=== PATIENT | male | born 1950 | race Caucasian/White ===

== ENCOUNTER 2018-11-14 08:00 | Inpatient (IN) | payer BC ==
[2018-11-19] MEDS ORDERED: HEPARIN NA (PORCINE) 5,000 UNITS/ML 1ML VIAL ONE (07:08)
[2018-11-19] MEDS ORDERED: BENZOIN TINCTURE SWABSTICK TP ONE (07:08)
[2018-11-19] MEDS ORDERED: THROMBIN (BOVINE) 5,000 UNIT VIAL TP ONE ×2 (07:08→09:33)
[2018-11-19] MEDS ORDERED: PROPOFOL 20 ML ONE ×13 (08:01→13:39)
[2018-11-19] MEDS ORDERED: fentaNYL CITRATE 250 MCG/5 ML VIAL ONE ×3 (08:15→21:54)
[2018-11-19] MEDS ORDERED: SUCCINYLCHOLINE CHLORIDE 200 MG/10 ML VIAL ONE (08:15)
[2018-11-19] MEDS ORDERED: ceFAZolin SODIUM 1 GM VIAL ONE (08:16)
[2018-11-19] MEDS ORDERED: ROCURONIUM BROMIDE 50 MG/5 ML VIAL ONE (08:16)
[2018-11-19] MEDS ORDERED: DEXAMETHASONE SOD PHOSPHATE 4 MG/1 ML VIAL ONE (08:16)
[2018-11-19] MEDS ORDERED: ePHEDrine SULFATE 50 MG/1 ML AMPULE ONE ×2 (08:40→12:28)
[2018-11-19] MEDS ORDERED: PHENYLEPHRINE HCL 10 MG/1 ML SINGLE DOSE VIAL ONE ×3 (08:43→11:59)
[2018-11-19] MEDS ORDERED: ceFAZolin SODIUM 1 GM VIAL IVPB ONE (08:48)
[2018-11-19] MEDS ORDERED: TRANEXAMIC ACID 1000 MG/10 ML VIAL ONE ×2 (09:44)
[2018-11-19] MEDS ORDERED: BUPIVACAINE LIPOSOME/PF (EXPAREL) 266 MG/20 ML VIAL ONE (10:06)
[2018-11-19] MEDS ORDERED: BUPIVACAINE HCL/PF 0.25% (2.5MG/ML) 10 ML VIAL ONE (10:06)
[2018-11-19] MEDS ORDERED: BUPIVACAINE LIPOSOME/PF (EXPAREL) 266 MG/20 ML VIAL NR ONE (10:15)
--- NOTE | 2018-11-19 12:47 | OP ---
Operative Note - Note: Operative Date: 11/19/18 Pre-Operative Diagnosis: 1. 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 2. Severe multi-level thoracolumbar stenosis with neurogenic claudication. 3. Multi-level segmental instability thoracolumbar spine. 4. Lumbar spondylolisthesis Operation: 1. T12, L1, L2, L3, L4, L5, S1 laminectomies. 2. T11-L5 facetectomies/osteotomies. 3. Simons-Villarreal osteotomies T12-L1, L1-L2, L3-L4. 4. Posterior instrumentation T11-S1. 5. Posterolateral arthrodesis T11-S1. 6. Bone autograft. 7. Bone allograft. 8. Bone marrow aspiration. 9. Stem cell autograft. 10. Intra-operative neural monitoring. 11. Intra-operative biplanar fluoroscopy. 12. Durotomy repair. 13. Complex wound closure (30cm) Post-Operative Diagnosis: Same as Pre-op Surgeon: Parish Rao [employer] Instructor: Migue Rao Anesthesiologist/TITLE I MATH TUTOR: Misha Ayoub Anesthesia: General Estimated Blood Loss (mls): 2,300 Drains & Tubes with Location: 1 x superficial HemoVac Blood Volume Replaced (mls): 1,575 (875 Cell Saver; 700 (2U) PRBC) Fluid Volume Replaced (mls): 7,000 (Crystalloid) Operative Report Dictated: Yes
--- NOTE | 2018-11-19 12:56 | PN ---
Progress Note (short form) - Note Progress Note: 68M s/p T11-S1 posterior decompression, T11-S1 posterior instrumented spinal fusion POD #0. -Admit to ICU post-op. -Pain control: per anaesthesia team; recommend DESIGN CENTER CONSULTANT. -DVT PPx: - Mechanical only: JOE's, SCD's. -Incentive spirometry q15min. -PT/OT/Rehab, OOB. -WBAT B/L LE. -q4h B/L LE NV checks. -Post-op antibiotics x 3 doses. -NPO until flatus. -f/u AM labs. -f/u drain output. -d/c Gomez catheter when patient ambulating comfortably. -Care per ICU & medical hospitalist team. -Discharge planning: f/u 7-10 days after discharge at [facility] [place] office; call for appointment; . -Will follow. Parish Rao MD (Orthopaedic Surgery).
[2018-11-19] MEDS ORDERED: EPINEPHrine/PF 1 MG/1 ML (1:1,000) AMPULE ONE (13:13)
[2018-11-19] MEDS ORDERED: NOREPINEPHRINE BITARTRATE 4 MG/4 ML ML IV ONE ×3 (13:30→19:47)
[2018-11-19] MEDS ORDERED: SODIUM BICARBONATE 8.4% - 50 ML ONE (13:32)
[2018-11-19] MEDS ORDERED: CALCIUM CHLORIDE 1 GM/10 ML *DISP.SYRIN ONE (13:49)
[2018-11-19] MEDS ORDERED: MIDAZOLAM HCL 5 MG/1 ML Single Dose Vial ONE (14:26)
[2018-11-19] MEDS ORDERED: ONDANSETRON 4 MG/2 ML VIAL IVPUSH PRN (14:29)
[2018-11-19] MEDS ORDERED: MIDAZOLAM HCL 5 MG/1 ML Single Dose Vial IVPUSH ONE (14:30)
[2018-11-19] MEDS ORDERED: VASOPRESSIN 20 UNITS/ML VIAL IV ONE (15:00)
[2018-11-19] MEDS ORDERED: MIDAZOLAM HCL 2 MG/2 ML SINGLE DOSE VIAL IVPUSH PRN ×2 (15:01→17:13)
--- NOTE | 2018-11-19 15:20 | PROC ---
Central Line Insertion Indication: Vasopressor Central Line: Triple Lumen Catheter Anesthesia: 1% Lidocaine Sterile Technique: Yes Ultrasound Guided Assistance: Yes Position: Left Internal Jugular Post Insertion: Yes: Bilateral Breath Sounds, Bilateral Chest Expansion, Chest X-Ray Ordered Sterile Dressing Applied: Yes (Biopatch applied)
--- NOTE | 2018-11-19 15:26 | CONSULT ---
Consult Consult Specialty:: Intensive Care Referred by:: Dr. 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 Pt lost 2300 cc blood during the procedure, was given 2UPRC and 7L of LR, 850 cell-saver in surgery. Pt was hypotensive, requiring Levophed and Dopamine peripherally. - History Source History Provided By: Medical Record Limitations to Obtaining History: Intubated - Alcohol/Substance Use Hx Alcohol Use: Yes (occ) - Smoking History Smoking history: Former smoker Have you smoked in the past 12 months: No If you are a former smoker, when did you quit?: 2007 Home Medications - Allergies Allergies/Adverse Reactions: Allergies Allergy/AdvReac Type Severity Reaction Status Date / Time No Known Allergies Allergy Verified 11/19/18 07:12 - Home Medications Home Medications: Ambulatory Orders Aspirin [ASA -] 81 mg PO DAILY 11/15/18 Clopidogrel Bisulfate [Clopidogrel] 75 mg PO DAILY 11/15/18 Ergocalciferol (Vitamin D2) [Vitamin D2] 2,000 unit PO DAILY 11/15/18 Losartan Potassium 50 mg PO HS 11/15/18 Metoprolol Succinate [Toprol Xl] 25 mg PO DAILY 11/15/18 Simvastatin 20 mg PO DAILY 11/15/18 Sulfamethoxazole/Trimethoprim [Sulfamethoxazole-Tmp Ds Tablet] 1 each PO DAILY 11/15/18 Tamsulosin HCl 0.4 mg PO DAILY 11/15/18 Review of Systems Unable to obtain ROS, reason: Intubated and sedated Physical Exam Vital Signs: Vital Signs Temperature 97.8 F 11/19/18 06:52 Pulse Rate 88 11/19/18 14:38 Respiratory Rate 20 11/19/18 14:38 Blood Pressure 132/89 11/19/18 06:52 O2 Sat by Pulse Oximetry (%) 100 11/19/18 14:38 Constitutional: Yes: Well Nourished, Mild Distress Eyes: Yes: WNL, Conjunctiva Clear, EOM Intact, PERRL HENT: Yes: WNL, Atraumatic, Normocephalic Neck: Yes: WNL, Supple, Trachea Midline Cardiovascular: Yes: WNL, Regular Rate and Rhythm Respiratory: Yes: WNL, Regular, CTA Bilaterally Gastrointestinal: Yes: WNL, Normal Bowel Sounds ...Rectal Exam: Yes: Deferred Edema: No Neurological: Yes: Other (Intubated and sedated, moves all fours) Psychiatric: Yes: Other (Intubated and sedated) Assessment/Plan ASSESSMENT AND PLAN 68 year old male with PMH 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 Pt lost 2300 cc blood during the procedure, was given 2UPRC and 7L of LR, 875 cell saver in surgery. Pt was hypotensive, requiring Levophed and Dopamine. NEURO #Multilevel spine surgery -Cefazolin 2gm Q8H -Zofran 4 mg IV Q6H -Morphine 2 mg Q4H PRN pain -Ativan 2 mg Q4H PRN agitation -Acetaminophen IV 1000 mg Q8H -Hold home ASA CARDIOVASCULAR #Hypotension -Left IJ placed for pressor use 11/19/18 -Levophed -Dopamine -2U PRBC given in OR -7L LR given in OR -875 cell saver given in OR -Pending repeat labs -Hold home losartan -Hold home metoprolol #HX HLD -Atorvastatin 10 mg PO HS RESPIRATORY -Intubated and ventilated 500/12/100%/5 -CXR ordered for ET tube and left IJ placement ID -Home Bactrim 1 each PO daily -Cefazolin post op FEN -LR @125 cc/hour
[2018-11-19] MEDS ORDERED: LORazepam 2 MG/ML SDV VIAL IVPUSH PRN (15:36)
[2018-11-19 15:38] LABS: ARTERIAL BLD GAS O2 SATURATION 99.8 % (95-98); ARTERIAL BLOOD GAS BASE EXCESS -7.5 meq/l (-2-2); ARTERIAL BLOOD GAS PCO2 28.2 mmHg (35-45); ARTERIAL BLOOD GAS PO2 327 mmHg (80-105); ARTERIAL BLOOD GAS pH 7.37 (7.35-7.45)
[2018-11-19] MEDS ORDERED: morphine CARPU-JECT 4 MG/1 ML DISP.SYRIN IVPUSH PRN (15:38)
[2018-11-19 15:40] LABS: HEMATOCRIT 37.8 % (35.4-49); HEMOGLOBIN 12.9 GM/dL (11.7-16.9); MCH 30.4 pg (25.7-33.7); MCHC 34.2 g/dl (32.0-35.9); MEAN CELL VOLUME 88.9 fl (80-96); MEAN PLT VOLUME 8.4 fl (7.5-11.1); PLATELET COUNT 143 K/MM3 (134-434); RBC 4.26 M/mm3 (4.00-5.60); RDW 15.2 % (11.9-15.9); WHITE BLOOD COUNT 14.8 K/mm3 (4.0-10.0)
[2018-11-19] MEDS ORDERED: MORPHINE SULFATE 2 MG/ML VIAL IVPUSH PRN ×2 (15:40→17:29)
[2018-11-19] MEDS ORDERED: MIDAZOLAM HCL 5 MG/ML 2ML VIAL IJ ONE (15:45)
[2018-11-19] MEDS ORDERED: MIDAZOLAM HCL 2 MG/2 ML SINGLE DOSE VIAL IVPUSH ONE (15:49)
[2018-11-19 16:11] LABS: ALBUMIN 2.2 g/dl (3.4-5.0); ALK PHOS 41 U/L (45-117); ANION GAP 8 MMOL/L (8-16); BILIRUBIN,TOTAL 0.4 mg/dL (0.2-1); BLOOD UREA NITROGEN 14 mg/dL (7-18); CALCIUM 7.7 mg/dL (8.5-10.1); CHLORIDE 107 mmol/L (98-107); CO2 22 mmol/L (21-32); CREATININE 0.9 mg/dL (0.55-1.3); GLUCOSE,RANDOM 235 mg/dL (74-106); POTASSIUM 4.7 mmol/L (3.5-5.1); SGOT/AST 28 U/L (15-37); SGPT/ALT 19 U/L (13-61); SODIUM 137 mmol/L (136-145); TOT PROT 4.3 g/dl (6.4-8.2)
[2018-11-19 16:46] LABS: INR 1.1 (0.83-1.09)
[2018-11-19 16:48] LABS: ACTIVATED PTT 26.5 SECONDS (25.2-36.5)
[2018-11-19] MEDS: LACTATED RINGERS SOLUTION 1,000 ML IV SCH (17:15)
[2018-11-19] MEDS: NOREPINEPHRINE BITARTRATE 4,000 MCG in DEXTROSE 5%-WATER - 496 ML IV SCH (17:15)
[2018-11-19] MEDS: ceFAZolin 2 GRAM PREMIX BAG IVPB SCH (17:47)
[2018-11-19] MEDS: ACETAMINOPHEN 1000 MG/100 ML VIAL (NON FORMULARY) IVPB SCH ×2 (17:48→18:03)
[2018-11-19] MEDS ORDERED: MIDAZOLAM 100 MG/100 ML MG IVPB ONE (19:30)
[2018-11-19] MEDS: MIDAZOLAM 100 MG in SODIUM CHLORIDE 100 ML IVPB SCH (19:35)
[2018-11-19 21:04] LABS: BASO % 0.1 % (0-2.0); HEMATOCRIT 37.1 % (35.4-49); HEMOGLOBIN 12.8 GM/dL (11.7-16.9); LYMPH % 4.5 % (8-40); MCHC 34.4 g/dl (32.0-35.9); MEAN CELL VOLUME 87.1 fl (80-96); MEAN PLT VOLUME 8.6 fl (7.5-11.1); MONO % 8.8 % (3.8-10.2); NEUT % 86.6 % (42.8-82.8); PLATELET COUNT 177 K/MM3 (134-434); RBC 4.26 M/mm3 (4.00-5.60); WHITE BLOOD COUNT 16.3 K/mm3 (4.0-10.0)
[2018-11-19 21:57] LABS: PLATELET ESTIMATE ADEQUATE
[2018-11-19] MEDS ORDERED: LOSARTAN POTASSIUM 50 MG TABLET (FP) PO SCH (22:00)
--- NOTE | 2018-11-19 22:00 | OP ---
DATE OF OPERATION: 11/19/2018 SURGEON: Parish Rao MD HYDRAULIC BARKER OPERATOR: Migue Rao MD PREOPERATIVE DIAGNOSES: 1. Severe spinal stenosis from T10-11 to L5-S1, most marked at L3-4 and L4-5. 2. Kyphosis. 3. Segmental instability, L1 to S1. POSTOPERATIVE DIAGNOSES: 1. Severe spinal stenosis from T10-11 to L5-S1, most marked at L3-4 and L4-5. 2. Kyphosis. 3. Segmental instability, L1 to S1. OPERATION PERFORMED: 1. Laminectomy, T12, L1, L2, L3, L4, L5, and S1 with undercutting facetectomy at each level. 2. Incidental durotomy plus repair. 3. Simons-Pyle osteotomies at T11-T12, at L1-L2, and at L3-L4. 4. Pedicle screw instrumentation, T11 to S1. 5. Posterolateral arthrodesis, T11 to ala of the sacrum including all intercalary levels. 6. Autologous bone graft with allograft bone graft expansion and bone marrow aspirate concentrate 120 mL from left posterior ilium. 7. Complex wound closure 40cms BLOOD LOSS: 2300 mL. Cell Saver blood given back 875. Two units of packed cells given intraoperatively and 7 L crystalloid. ANTIBIOTICS GIVEN: Preop Ancef 2 g and then intraoperatively Ancef 1 g. At the end of the procedure, another gram of Kefzol was given. OPERATION DETAILS: Patient correctly identified, placed prone on a Gray table. All bony points appropriately padded. Eyes were notably free of any pressure. Position of the head was 10 degrees anti-Trendelenburg. I the prone position, the lumbar spine was prepped, and a window drape applied. Midline incision was performed from the tip of the spinous process of T11 right down to the tip of the spinous process of S2. The dissection was taken through the skin, subcutaneous tissue to the tip of the spinous processes. Subperiosteal dissection performed, exposing the entire spine from T11 right to the ala of the sacrum both left- and right-hand side. A multi-level laminectomy from T11 right down to S1 performed. This laminectomy was performed using a combination of Leksell rongeurs, Kerrison up-cuts of all different sizes, as well as osteotomes to implode the bone inwards. Severe stenosis encountered. This turned out to be an extremely difficult decompression. At the end of it, there was a tiny, pin-hole where the arachnoid was intact, but the dura was . The diameter of this was no more than a millimeter. One single 4-0 Nurolon suture changed the picture. It sealed this up completely. Valsalva maneuvers brought about no leakage. Once this had been performed and the entire decompression was performed and this necessitated at each level the theca to be exposed, held out of harm's way, and the superior facets resected. A formal Simons-Pyle osteotomy was performed at T11-T12, T12-L1, as well as L1-L2. That is 3 levels performed. This was using Leksell rongeurs and Kerrison up-cuts. This enabled nondenominational of the lumbar lordosis. Once the dura had been completely freed and complete exposure of this dura noted, the pedicles from T11 right down to S1 were identified using anatomical guidelines in combination with lateral fluoroscopic x-ray. Each pedicle was drilled with a 4.5 drill bit. Each pedicle was palpated with a ball-tip feeler, and each screw measured 45 x 6 mm excepting the left S1 screw was a 7.5 x 45 mm screw. Each screw was then tested with intraoperative neuromonitoring, found to be well above 20 mA for each screw. The rods were contoured appropriately to restore lordosis and fixed to the tulips of the screw heads and then fixed appropriately with the appropriate caps and torque device, providing a solid fixation. We planned on interbody cages and fusion at the L4- 5 and L5-S1, but stopped this because of the slow ooze of blood loss and the concern for the patient's general wellbeing. He is an extensive previous myocardial infarction patient. It was elected to be more conservative on this. The entire erector spinae muscles were then retracted gently. The wounds were thoroughly lavaged, and at that point, the entire intertransverse plane was packed with bone marrow. This was a combination of autograft, allograft mixed with CD34 cells harvested from the left posterior ilium. Closure Complex wound closure 40 cm 4 layer closure. Muscle fascia subcutaneous tissue and skin separately. In summary, this gentleman underwent a T12 to S1, multi-level laminectomy for severe spinal stenosis at multiple levels with an associated instrumented stabilization procedure having been performed at this setting. MD MEENAKSHI Adair/[id number] MTDD
[2018-11-19] MEDS: ATORVASTATIN CA 10 MG TABLET (FP) PO SCH (22:13)
[2018-11-19] MEDS: FENTANYL INJECTION 500 MCG in DEXTROSE 5%-WATER - 90 ML IVPB SCH (22:13)
[2018-11-20] MEDS: ceFAZolin 2 GRAM PREMIX BAG IVPB SCH ×2 (00:24→07:54)
[2018-11-20] MEDS: ACETAMINOPHEN 1000 MG/100 ML VIAL (NON FORMULARY) IVPB SCH (03:07)
[2018-11-20 07:00] LABS: BASO % 0.1 % (0-2.0); HEMATOCRIT 30.1 % (35.4-49); HEMOGLOBIN 10.5 GM/dL (11.7-16.9); LYMPH % 10.1 % (8-40); MCH 29.8 pg (25.7-33.7); MCHC 34.8 g/dl (32.0-35.9); MEAN CELL VOLUME 85.5 fl (80-96); MEAN PLT VOLUME 8.4 fl (7.5-11.1); MONO % 13.5 % (3.8-10.2); NEUT % 76.3 % (42.8-82.8); PLATELET COUNT 165 K/MM3 (134-434); RBC 3.52 M/mm3 (4.00-5.60); RDW 15.1 % (11.9-15.9); WHITE BLOOD COUNT 16.7 K/mm3 (4.0-10.0)
[2018-11-20 07:18] LABS: ALBUMIN 2.6 g/dl (3.4-5.0); ALK PHOS 40 U/L (45-117); ANION GAP 8 MMOL/L (8-16); BILIRUBIN,TOTAL 0.2 mg/dL (0.2-1); BLOOD UREA NITROGEN 16 mg/dL (7-18); CALCIUM 7.2 mg/dL (8.5-10.1); CHLORIDE 104 mmol/L (98-107); CO2 24 mmol/L (21-32); CREATININE 1.1 mg/dL (0.55-1.3); GLUCOSE,RANDOM 175 mg/dL (74-106); MAGNESIUM 1.4 mg/dL (1.8-2.4); PHOSPHOROUS 3.5 mg/dL (2.5-4.9); POTASSIUM 4.7 mmol/L (3.5-5.1); SGOT/AST 51 U/L (15-37); SGPT/ALT 25 U/L (13-61); SODIUM 135 mmol/L (136-145); TOT PROT 4.9 g/dl (6.4-8.2)
--- NOTE | 2018-11-20 07:33 | PN ---
Physical Exam: SUBJECTIVE: Patient seen and examined, sedated and intubated. Unable to provide history. OBJECTIVE: Vital Signs Period Temp Pulse Resp BP Sys/Conde Pulse Ox Last 24 Hr 97.6 F-98.8 F 46-130 12-24 70-145/40-100 99-100 GENERAL: The patient is sedated in intubated, resting comfortably. HEAD: Normal with no signs of trauma. EYES: PERRL, sclera anicteric, conjunctiva clear. No ptosis. ENT: Ears normal, nares patent, oropharynx clear without exudates, moist mucous membranes. NECK: Trachea midline, full range of motion, supple. LUNGS: Breath sounds equal, clear to auscultation bilaterally, no wheezes, no crackles, no accessory muscle use. HEART: Regular rate and rhythm, S1, S2 without murmur, rub or gallop. ABDOMEN: Soft, nontender, nondistended, normoactive bowel sounds, no guarding, no rebound, no hepatosplenomegaly, no masses. EXTREMITIES: 2+ pulses, warm, well-perfused, no edema. NEUROLOGICAL: sedated and intubated. PSYCH: sedated and intubated. SKIN: Warm, dry, normal turgor, no rashes or lesions noted. Laboratory Results - last 24 hr 11/19/18 11/19/18 11/19/18 06:15 11:50 11:50 WBC RBC Hgb Hct MCV MCH MCHC RDW Plt Count MPV Absolute Neuts (auto) Neutrophils % Neutrophils % (Manual) Band Neutrophils % Lymphocytes % Lymphocytes % (Manual) Monocytes % Monocytes % (Manual) Eosinophils % Eosinophils % (Manual) Basophils % Basophils % (Manual) Nucleated RBC % Platelet Estimate PT with INR INR PTT (Actin FS) Puncture Site ABG pH ABG pCO2 at Pt Temp ABG pO2 at Pt Temp ABG HCO3 ABG O2 Sat (Measured) ABG O2 Content ABG Base Excess Jair Test Oxygen Flow Rate Vent Mode Vent Rate PEEP Sodium Potassium Chloride Carbon Dioxide Anion Gap BUN Creatinine Creat Clearance w eGFR Random Glucose Lactic Acid Calcium Phosphorus Magnesium Total Bilirubin AST ALT Alkaline Phosphatase Creatine Kinase Creatine Kinase Index CK-MB (CK-2) Troponin I Total Protein Albumin Blood Type A POSITIVE A POSITIVE Antibody Screen Negative Crossmatch See Detail Crossmatch IS Only See Detail 11/19/18 11/19/18 11/19/18 15:00 15:20 15:20 WBC RBC Hgb Hct MCV MCH MCHC RDW Plt Count MPV Absolute Neuts (auto) Neutrophils % Neutrophils % (Manual) Band Neutrophils % Lymphocytes % Lymphocytes % (Manual) Monocytes % Monocytes % (Manual) Eosinophils % Eosinophils % (Manual) Basophils % Basophils % (Manual) Nucleated RBC % Platelet Estimate PT with INR 13.00 INR 1.10 H PTT (Actin FS) 26.5 Puncture Site ABG pH ABG pCO2 at Pt Temp ABG pO2 at Pt Temp ABG HCO3 ABG O2 Sat (Measured) ABG O2 Content ABG Base Excess Jair Test Oxygen Flow Rate Vent Mode Vent Rate PEEP Sodium 137 Potassium 4.7 Chloride 107 Carbon Dioxide 22 Anion Gap 8 BUN 14 Creatinine 0.9 Creat Clearance w eGFR 83.67 Random Glucose 235 H Lactic Acid Calcium 7.7 L Phosphorus Magnesium Total Bilirubin 0.4 AST 28 ALT 19 Alkaline Phosphatase 41 L Creatine Kinase 638 H Creatine Kinase Index 3.0 CK-MB (CK-2) 19.2 H Troponin I 0.12 H Total Protein 4.3 L Albumin 2.2 L Blood Type Antibody Screen Crossmatch Crossmatch IS Only 11/19/18 11/19/18 11/19/18 15:20 15:20 15:30 WBC 14.8 H RBC 4.26 Hgb 12.9 Hct 37.8 MCV 88.9 MCH 30.4 MCHC 34.2 RDW 15.2 Plt Count 143 MPV 8.4 Absolute Neuts (auto) Neutrophils % Neutrophils % (Manual) Band Neutrophils % Lymphocytes % Lymphocytes % (Manual) Monocytes % Monocytes % (Manual) Eosinophils % Eosinophils % (Manual) Basophils % Basophils % (Manual) Nucleated RBC % Platelet Estimate PT with INR INR PTT (Actin FS) Puncture Site No Result Required. ABG pH 7.37 ABG pCO2 at Pt Temp 28.2 L ABG pO2 at Pt Temp 327 H ABG HCO3 16.1 L ABG O2 Sat (Measured) 99.8 H ABG O2 Content 17.0 ABG Base Excess -7.5 L Jair Test No Result Required. Oxygen Flow Rate 100 Vent Mode Ac Vent Rate 12 PEEP 5.0 Sodium Potassium Chloride Carbon Dioxide Anion Gap BUN Creatinine Creat Clearance w eGFR Random Glucose Lactic Acid 4.7 H* Calcium Phosphorus Magnesium Total Bilirubin AST ALT Alkaline Phosphatase Creatine Kinase Creatine Kinase Index CK-MB (CK-2) Troponin I Total Protein Albumin Blood Type Antibody Screen Crossmatch Crossmatch IS Only 11/19/18 11/19/18 11/20/18 20:35 20:45 05:30 WBC 16.3 H RBC 4.26 Hgb 12.8 Hct 37.1 MCV 87.1 MCH 30.0 MCHC 34.4 RDW 15.0 Plt Count 177 D MPV 8.6 Absolute Neuts (auto) 14.1 H Neutrophils % 86.6 H Neutrophils % (Manual) 76.0 Band Neutrophils % 11.0 Lymphocytes % 4.5 L Lymphocytes % (Manual) 4.0 L Monocytes % 8.8 Monocytes % (Manual) 7 Eosinophils % 0.0 Eosinophils % (Manual) 2.0 Basophils % 0.1 Basophils % (Manual) 0.0 Nucleated RBC % 0 Platelet Estimate Adequate PT with INR INR PTT (Actin FS) Puncture Site ABG pH ABG pCO2 at Pt Temp ABG pO2 at Pt Temp ABG HCO3 ABG O2 Sat (Measured) ABG O2 Content ABG Base Excess Jair Test Oxygen Flow Rate Vent Mode Vent Rate PEEP Sodium 135 L Potassium 4.7 Chloride 104 Carbon Dioxide 24 Anion Gap 8 BUN 16 Creatinine 1.1 Creat Clearance w eGFR 66.37 Random Glucose 175 H Lactic Acid 3.7 H* Calcium 7.2 L Phosphorus 3.5 Magnesium 1.4 L Total Bilirubin 0.2 AST 51 H ALT 25 Alkaline Phosphatase 40 L Creatine Kinase Creatine Kinase Index CK-MB (CK-2) Troponin I Total Protein 4.9 L Albumin 2.6 L Blood Type Antibody Screen Crossmatch Crossmatch IS Only Active Medications Generic Name Dose Route Start Last Admin Trade Name Freq PRN Reason Stop Dose Admin Atorvastatin Calcium 10 mg 11/19/18 22:00 11/19/18 22:13 Lipitor - PO Not Given HS HARRY Cefazolin Sodium/Dextrose 2 gm 11/19/18 16:00 11/20/18 00:24 Ancef 2 Gm Premixed Ivpb - IVPB 11/20/18 08:01 2 gm Q8H HARRY Administration Fentanyl 50 mcg 11/19/18 17:29 11/19/18 17:42 Sublimaze Injection - IVPUSH 11/20/18 17:29 50 mcg Q6H PRN Administration PAIN LEVEL 7 - 10 Lactated Ringer's 1,000 mls @ 125 mls/hr 11/19/18 14:30 11/20/18 00:00 Lactated Ringers Solution IV 125 mls/hr ASDIR HARRY Administration Norepinephrine Bitartrate 4, 500 mls @ 37.5 mls/hr 11/19/18 18:45 11/20/18 06 :00 000 mcg/ Dextrose IV 7 mcg/min TITR HARRY 52.5 mls/hr Titration Protocol 5 MCG/MIN Midazolam HCl 100 mg/ Sodium 100 mls @ 1 mls/hr 11/19/18 19:00 11/19/18 19:35 Chloride IVPB 1 mg/hr TITR HARRY 1 mls/hr Administration Protocol 1 MG/HR Fentanyl 500 mcg/ Dextrose 100 mls @ 10 mls/hr 11/19/18 21:45 11/19/18 22:13 IVPB 50 mcg/hr TITR HARRY 10 mls/hr Administration Protocol 50 MCG/HR Midazolam HCl 2 mg 11/19/18 17:13 Versed - IVPUSH Q4H PRN AGITATION Morphine Sulfate 4 mg 11/19/18 17:30 Morphine Sulfate IVPUSH Q4H PRN PAIN LEVEL 6-10 Ondansetron HCl 4 mg 11/19/18 14:29 Zofran Injection IVPUSH Q6H PRN NAUSEA AND/OR VOMITING Tamsulosin HCl 0.4 mg 11/20/18 08:30 Flomax - PO DAILY@0830 HARRY Trimethoprim/Sulfamethoxazole 1 each 11/20/18 10:00 Bactrim Ds - PO DAILY [facility] ASSESSMENT/PLAN: ASSESSMENT AND PLAN 68 year old male with PMH 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 Pt lost 2300 cc blood during the procedure, was given 2UPRC and 7L of LR, 875 cell saver in surgery. Pt was hypotensive, requiring pressors. NEURO #Multilevel spine surgery -Cefazolin 2gm Q8H -Zofran 4 mg IV Q6H -Morphine 2 mg Q4H PRN pain -Ativan 2 mg Q4H PRN agitation -Acetaminophen IV 1000 mg Q8H -Fentanyl drip DC -Versed drip DC -Hold home ASA CARDIOVASCULAR #Hypotension -Left IJ placed for pressor use 11/19/18 -Levophed, titrate down -2U PRBC given in OR -7L LR given in OR -875 cell saver given in OR -Repeat H/H stable -Hold home losartan -Hold home metoprolol #HX HLD -Atorvastatin 10 mg PO HS RESPIRATORY -Extubated today after sedation was DC and CPAP was tolerated for an hour -Venti mask 50 ID -Home Bactrim 1 each PO daily -Cefazolin post op -Lactic acidosis: 4.7>>3.7>>3.0 --Trend --500 cc bolus normal saline now --Increased fluids to 150 cc/hour LR FEN -LR @150 cc/hour -500 cc bolus now -Monitor electrolytes -Replete magnesium -NPO DISPO ICU Visit type - Emergency Visit Emergency Visit: Yes ED Registration Date: 11/19/18 Care time: The patient presented to the Emergency Department on the above date and was hospitalized for further evaluation of their emergent condition. - New Patient This patient is new to me today: No - Critical Care Critical Care patient: Yes Total Critical Care Time (in minutes): 35 Critical Care Statement: The care of this patient involved high complexity decision making to prevent further life threatening deterioration of the patient 's condition and/or to evaluate & treat vital organ system(s) failure or risk of failure. - Discharge Referral Referred to [facility] Med [facility] Yes
[2018-11-20 07:37] LABS: INR 1.07 (0.83-1.09); PROTHROMBIN TIME (PATIENT) 12.6 SEC (9.7-13.0)
[2018-11-20 07:40] LABS: ACTIVATED PTT 26.3 SECONDS (25.2-36.5)
[2018-11-20] MEDS ORDERED: SODIUM CHLORIDE 500 ML IV STA (08:41)
[2018-11-20] MEDS: LACTATED RINGERS SOLUTION 1,000 ML IV SCH ×3 (09:00→17:25)
--- NOTE | 2018-11-20 09:12 | PN ---
Progress Note, Physician History of Present Illness: Patient seen and examined at bedside. No overnight events. S/P Spine surgery with durotomy, complicated by post-op hypotension requiring pressors for BP support. Now only requiring minimal norepinephine and currently undergoing SBT on CPAP. Plan is for extubation today. - Current Medication List Current Medications: Active Medications Atorvastatin Calcium (Lipitor -) 10 mg PO HS HARRY Last Admin: 11/19/18 22:13 Dose: Not Given Fentanyl (Sublimaze Injection -) 50 mcg IVPUSH Q6H PRN PRN Reason: PAIN LEVEL 7 - 10 Stop: 11/20/18 17:29 Last Admin: 11/19/18 17:42 Dose: 50 mcg Norepinephrine Bitartrate 4, (000 mcg/ Dextrose) 500 mls @ 37.5 mls/hr IV TITR HARRY; Protocol Last Titration: 11/20/18 08:31 Dose: 4 mcg/min, 30 mls/hr Midazolam HCl 100 mg/ Sodium (Chloride) 100 mls @ 1 mls/hr IVPB TITR HARRY; Protocol Last Titration: 11/20/18 07:30 Dose: 0 mg/hr, 0 mls/hr Fentanyl 500 mcg/ Dextrose 100 mls @ 10 mls/hr IVPB TITR HARRY; Protocol Last Titration: 11/20/18 07:48 Dose: 0 mcg/hr, 0 mls/hr Lactated Ringer's (Lactated Ringers Solution) 1,000 mls @ 150 mls/hr IV ASDIR HARRY Sodium Chloride (Normal Saline -) 500 mls @ 500 mls/hr IV ASDIR STA Stop: 11/20/18 09:40 Magnesium Sulfate (Magnesium Sulfate) 2 gm IVPB ONCE ONE Stop: 11/20/18 08:44 Midazolam HCl (Versed -) 2 mg IVPUSH Q4H PRN PRN Reason: AGITATION Morphine Sulfate (Morphine Sulfate) 4 mg IVPUSH Q4H PRN PRN Reason: PAIN LEVEL 6-10 Ondansetron HCl (Zofran Injection) 4 mg IVPUSH Q6H PRN PRN Reason: NAUSEA AND/OR VOMITING Tamsulosin HCl (Flomax -) 0.4 mg PO DAILY@0830 [facility] Trimethoprim/Sulfamethoxazole (Bactrim Ds -) 1 each PO DAILY [facility] - Objective Vital Signs: Vital Signs Temperature 98.8 F 11/20/18 06:00 Pulse Rate 86 11/20/18 08:31 Respiratory Rate 20 11/20/18 08:00 Blood Pressure 102/70 11/20/18 08:31 O2 Sat by Pulse Oximetry (%) 98 11/20/18 08:03 Constitutional: Yes: No Distress, Calm, Other Eyes: Yes: Conjunctiva Clear HENT: Yes: Atraumatic, Normocephalic Neck: Yes: Supple, Trachea Midline Cardiovascular: Yes: Regular Rate and Rhythm, S1, S2. No: JVD, Gallop, Murmur Respiratory: Yes: Regular, CTA Bilaterally, Intubated, Mechanically Ventilated Gastrointestinal: Yes: Abdomen, Obese, Distention, Hypoactive Bowel Sounds. No : Tenderness Genitourinary: Yes: Gomez Present Edema: No Peripheral Pulses: Left Doralis Pedis: 2+, Right Dorsalis Pedis: 2+ Wound/Incision: Yes: Clean/Dry Neurological: Yes: Other (sedated, with good gag and pupillary reflexes.) Labs: CBC, BMP 11/20/18 05:30 11/20/18 05:30 INR, PTT INR 1.07 (0.83-1.09) 11/20/18 05:30 - ....Imaging Chest X-ray: Report Reviewed (RAD/CHEST X-RAY PORTABLE* Chest: Intubated A single AP view of the chest has been submitted. Since 11/19/2018 at 1707 hours again is evidence of the previous spinal fusion hardware, endotracheal tube with tip well above addie left jugular line with tip in left innominate. There is persistent atelectasis and pleural reaction at the left base with prominent mediastinum and poorly healed fracture deformity of the right humerus. The right lung and left upper lobe are clear. Impression: No significant change since 11/19/2018 exam. Reported By: Bladimir Funes MD 11/20/18 0733), Image Reviewed Problem List - Problems (1) S/P spinal surgery Assessment/Plan: S/P T12, L1, L2, L3, L4, L5, S1 laminectomies, T11-L5 facetectomies/osteotomies , Simons-Villarreal osteotomies T12-L1, L1-L2, L3-L4, Posterior instrumentation T11 -S1, Posterolateral arthrodesis T11-S1, Bone autograft, Bone allograft, Bone marrow aspiration,Stem cell autograft, Intra-operative neural monitoring, Intra -operative biplanar fluoroscopy, Durotomy repair, Complex wound closure (30cm). * Complicated by post op hypotension requiring pressors. * Morphine 2mg Q4H PRN pain. * Versed 2mg Q4h PRN aggitations . * Tylenol IV Q8H * Hold ASA. Code(s): Z98.890 - OTHER SPECIFIED POSTPROCEDURAL STATES (2) Hypotension after procedure Assessment/Plan: * Left IJ placed for pressor use 11/19/18 * Levophed @ 2mcg * 2U PRBC given in OR * 7L LR given in OR * 875 cell saver given in OR * Hold home losartan * Hold home metoprolol (3) Intubation of airway performed without difficulty Assessment/Plan: * Currently spontaneous breathing trial on CPAP * Off sedation. * plan is for extubation today. * Supplement O2 PRN * Maintain SpO2 >90% (4) DVT prophylaxis Assessment/Plan: SCD's bilaterally * Continue ASA. Assessment/Plan DISPO: Continues to require ICU level of care; FULL CODE>
--- NOTE | 2018-11-20 09:21 | PN ---
Progress Note (short form) - Note Progress Note: Pt POD1 s/p [id number] laminectomy/fusion. PT was hypotensive on admission to ICU yesterday, but is doing much better today after volume repletion. Levophed has been decreased, and sedation has been stopped in plan for extubation today.
--- NOTE | 2018-11-20 09:21 | EKG ---
Test Reason : Blood Pressure : / mmHG Vent. Rate : 104 BPM Atrial Rate : 104 BPM P-R Int : 144 ms QRS Dur : 092 ms QT Int : 328 ms P-R-T Axes : 050 -14 -29 degrees QTc Int : 431 ms SINUS TACHYCARDIA INFERIOR INFARCT , AGE UNDETERMINED ABNORMAL ECG NO PREVIOUS ECGS AVAILABLE Confirmed by PATIENCE HUNTER, ALEJANDRA ([id number]) on 11/20/2018 9:21:41 AM Referred By: Parish Rao Confirmed By:ALEJANDRA MORIN MD
[2018-11-20] MEDS ORDERED: MAGNESIUM SULF 50% (8.12 MEQ/2 ML-1 GM VIAL) IVPB ONE (09:30)
[2018-11-20] MEDS ORDERED: metoPROLOL SUCCINATE 25 MG TAB.SR.24H (FP) PO SCH (10:00)
[2018-11-20] MEDS: SULFAMETHOXAZOLE/TRIMETHOPRIM 800MG/160MG D.S. TABLET PO SCH (11:43)
[2018-11-20] MEDS: morphine SULFATE 4 MG/ML VIAL IVPUSH PRN ×2 (11:49→17:22)
[2018-11-20] MEDS: TAMSULOSIN HCL 0.4 MG CAP PO SCH (11:52)
--- NOTE | 2018-11-20 12:47 | CON.CARD ---
Consult Consult Specialty:: Cardiology Referred by:: Parish Rao Reason for Consultation:: Post op cardiac evaluation - History of Present Illness Chief Complaint: Post op History of Present Illness: Patient is a 68 year old male with history of lumbar disc disease s/p lumbar laminectomies, facetectomies/osteotomies and bone grafts who is post op for cardiac evaluation. He was sent to ICU post op on pressors due to persistent hypotension. Currently Dopamine has been stopped and continues to wean on Levophed. He is awake and appears tolerating therapy. He denies chest pain, SOB or palpitations. He denies paroxysmal nocturnal dyspnea or orthopnea. He denies fever or chills. He denies nausea, vomiting and denies headache or lightheadedness. - History Source History Provided By: Patient, Family Member, Medical Record Limitations to Obtaining History: Clinical Condition - Past Medical History Cardio/Vascular: Yes: HTN, Hyperlipdemia - Alcohol/Substance Use Hx Alcohol Use: Yes (occ) - Smoking History Smoking history: Former smoker Have you smoked in the past 12 months: No If you are a former smoker, when did you quit?: 2007 Home Medications - Allergies Allergies/Adverse Reactions: Allergies Allergy/AdvReac Type Severity Reaction Status Date / Time No Known Allergies Allergy Verified 11/19/18 07:12 - Home Medications Home Medications: Ambulatory Orders Aspirin [ASA -] 81 mg PO DAILY 11/15/18 Clopidogrel Bisulfate [Clopidogrel] 75 mg PO DAILY 11/15/18 Ergocalciferol (Vitamin D2) [Vitamin D2] 2,000 unit PO DAILY 11/15/18 Losartan Potassium 50 mg PO HS 11/15/18 Metoprolol Succinate [Toprol Xl] 25 mg PO DAILY 11/15/18 Simvastatin 20 mg PO DAILY 11/15/18 Sulfamethoxazole/Trimethoprim [Sulfamethoxazole-Tmp Ds Tablet] 1 each PO DAILY 11/15/18 Tamsulosin HCl 0.4 mg PO DAILY 11/15/18 Review of Systems - Review of Systems Constitutional: denies: Chills, Fever Cardiovascular: denies: Chest Pain, Palpitations, Shortness of Breath Respiratory: denies: Cough, Hemoptysis, Orthopnea, PND, SOB, SOB on Exertion Gastrointestinal: denies: Abdominal Pain, Constipation, Diarrhea, Melena, Nausea , Rectal Bleeding, Vomiting Genitourinary: denies: Dysuria, Hematuria Musculoskeletal: reports: Back Pain Neurological: denies: Dizziness, Headache, Seizure, Syncope Vital Signs: Vital Signs Temperature 97.8 F 11/20/18 11:00 Pulse Rate 100 H 11/20/18 12:03 Respiratory Rate 24 H 11/20/18 12:03 Blood Pressure 106/77 11/20/18 12:03 O2 Sat by Pulse Oximetry (%) 100 11/20/18 12:02 Eyes: Yes: PERRL HENT: Yes: Atraumatic Neck: Yes: Supple Respiratory: Yes: CTA Bilaterally Gastrointestinal: Yes: Normal Bowel Sounds, Soft. No: Tenderness Cardiovascular: Yes: Regular Rate and Rhythm JVD: No Carotid Bruit: No PMI: Non-Displaced Heart Sounds: Yes: S1, S2. No: Gallop Murmur: No: Systolic Murmur, Diastolic Murmur Edema: No - Other Data Labs, Other Data: CBC, BMP 11/20/18 05:30 11/20/18 05:30 INR, PTT INR 1.07 (0.83-1.09) 11/20/18 05:30 Troponin, BNP 11/19/18 11/20/18 15:20 05:30 Troponin I 0.12 H 0.41 H Troponin, BNP 11/19/18 11/20/18 15:20 05:30 Troponin I 0.12 H 0.41 H Imaging - Results Chest X-ray: Report Reviewed EKG: Report Reviewed (Sinus tachycardia, inferior infarct) Problem List - Problems (1) HTN (hypertension) Code(s): I10 - ESSENTIAL (PRIMARY) HYPERTENSION Qualifiers: Hypertension type: essential hypertension Qualified Code(s): I10 - Essential (primary) hypertension (2) Hyperlipidemia Code(s): E78.5 - HYPERLIPIDEMIA, UNSPECIFIED Qualifiers: Hyperlipidemia type: pure hypercholesterolemia Qualified Code(s): E78.00 - Pure hypercholesterolemia, unspecified; E78.0 - Pure hypercholesterolemia (3) Hypotension after procedure Code(s): I95.81 - POSTPROCEDURAL HYPOTENSION (4) S/P spinal surgery Code(s): Z98.890 - OTHER SPECIFIED POSTPROCEDURAL STATES Assessment/Plan 1. Lumbar Stenosis with radiculopathy and claudication s/p T12-S1 Laminectomies/ Posterior Instrumentation/Arthrodesis/Durotomy Repair 2. Acute Blood Loss Anemia 3. Hypovolemic Shock and lactic acidosis 4. Demand ischemia 5. Thrombocytopenia 6. History of HTN 7 Hypercholesterolemia PLAN: 1. Monitor Hgb/Hct and transfuse PRBC as needed 2. Wean pressors to maintain MAP >65 3. Pain control and post op management 4. DVT prophylaxis As per critical care team Kaleb Stanley MD
[2018-11-20] MEDS ORDERED: NOREPINEPHRINE BITARTRATE 4 MG/4 ML ML IV ONE (13:41)
[2018-11-20] MEDS: NOREPINEPHRINE BITARTRATE 4,000 MCG in DEXTROSE 5%-WATER - 496 ML IV SCH ×2 (13:47→21:22)
[2018-11-20 14:01] LABS: BASO % 0.1 % (0-2.0); HEMATOCRIT 27.3 % (35.4-49); HEMOGLOBIN 9.4 GM/dL (11.7-16.9); MCH 29.8 pg (25.7-33.7); MCHC 34.4 g/dl (32.0-35.9); MEAN CELL VOLUME 86.8 fl (80-96); MEAN PLT VOLUME 8.4 fl (7.5-11.1); MONO % 11.6 % (3.8-10.2); NEUT % 78.3 % (42.8-82.8); PLATELET COUNT 155 K/MM3 (134-434); RBC 3.15 M/mm3 (4.00-5.60); WHITE BLOOD COUNT 14.5 K/mm3 (4.0-10.0)
--- NOTE | 2018-11-20 14:10 | PN ---
Teaching Attending Note Name of Resident: Any Muller ATTENDING PHYSICIAN STATEMENT I saw and evaluated the patient. I reviewed the resident's note and discussed the case with the resident. I agree with the resident's findings and plan as documented. SUBJECTIVE: SUBJECTIVE: Patient seen and examined, remains intubated. Awake and able to follow commands. Remains on 4 mcg NE for hemodynamic support. OBJECTIVE: Intake & Output 11/17/18 11/18/18 11/19/18 11/20/18 23:59 23:59 23:59 23:59 Intake Total 86878 3044 Output Total 2425 800 Balance 7670 2244 Weight 193 lb Last Vital Signs Temp Pulse Resp BP Pulse Ox 98.4 F 96 H 23 H 93/71 100 11/20/18 14:00 11/20/18 14:00 11/20/18 14:00 11/20/18 14:00 11/20/18 12:02 Active Medications Atorvastatin Calcium (Lipitor -) 10 mg PO HS HARRY Last Admin: 11/19/18 22:13 Dose: Not Given Fentanyl (Sublimaze Injection -) 50 mcg IVPUSH Q6H PRN PRN Reason: PAIN LEVEL 7 - 10 Stop: 11/20/18 17:29 Last Admin: 11/19/18 17:42 Dose: 50 mcg Norepinephrine Bitartrate 4, (000 mcg/ Dextrose) 500 mls @ 37.5 mls/hr IV TITR HARRY; Protocol Last Admin: 11/20/18 13:47 Dose: 4 mcg/min, 30 mls/hr Midazolam HCl 100 mg/ Sodium (Chloride) 100 mls @ 1 mls/hr IVPB TITR HARRY; Protocol Last Titration: 11/20/18 07:30 Dose: 0 mg/hr, 0 mls/hr Fentanyl 500 mcg/ Dextrose 100 mls @ 10 mls/hr IVPB TITR HARRY; Protocol Last Titration: 11/20/18 07:48 Dose: 0 mcg/hr, 0 mls/hr Lactated Ringer's (Lactated Ringers Solution) 1,000 mls @ 150 mls/hr IV ASDIR HARRY Last Admin: 11/20/18 09:00 Dose: 150 mls/hr Midazolam HCl (Versed -) 2 mg IVPUSH Q4H PRN PRN Reason: AGITATION Morphine Sulfate (Morphine Sulfate) 4 mg IVPUSH Q4H PRN PRN Reason: PAIN LEVEL 6-10 Last Admin: 11/20/18 11:49 Dose: 4 mg Ondansetron HCl (Zofran Injection) 4 mg IVPUSH Q6H PRN PRN Reason: NAUSEA AND/OR VOMITING Tamsulosin HCl (Flomax -) 0.4 mg PO DAILY@0830 [facility] Last Admin: 11/20/18 11:52 Dose: Not Given Trimethoprim/Sulfamethoxazole (Bactrim Ds -) 1 each PO DAILY [facility] Last Admin: 11/20/18 11:43 Dose: Not Given GENERAL: intubated, awake and able to follow commands HEAD: Normal with no signs of trauma. EYES: PERRL, sclera anicteric, conjunctiva clear. No ptosis. ENT: Ears normal, nares patent, oropharynx clear without exudates, moist mucous membranes. NECK: Trachea midline, full range of motion, supple. LUNGS: Breath sounds equal, clear to auscultation bilaterally, no wheezes, no crackles, no accessory muscle use. HEART: Regular rate and rhythm, S1, S2 without murmur, rub or gallop. ABDOMEN: Soft, nontender, nondistended, normoactive bowel sounds, no guarding, no rebound, no hepatosplenomegaly, no masses. EXTREMITIES: 2+ pulses, warm, well-perfused, no edema. NEUROLOGICAL: non-focal. PSYCH: sedated and intubated. SKIN: Warm, dry, normal turgor, no rashes or lesions noted. Laboratory Results - last 24 hr 11/19/18 11/19/18 11/19/18 06:15 11:50 11:50 WBC RBC Hgb Hct MCV MCH MCHC RDW Plt Count MPV Absolute Neuts (auto) Neutrophils % Neutrophils % (Manual) Band Neutrophils % Lymphocytes % Lymphocytes % (Manual) Monocytes % Monocytes % (Manual) Eosinophils % Eosinophils % (Manual) Basophils % Basophils % (Manual) Nucleated RBC % Platelet Estimate PT with INR INR PTT (Actin FS) Puncture Site ABG pH ABG pCO2 at Pt Temp ABG pO2 at Pt Temp ABG HCO3 ABG O2 Sat (Measured) ABG O2 Content ABG Base Excess Jair Test Oxygen Flow Rate Vent Mode Vent Rate PEEP Sodium Potassium Chloride Carbon Dioxide Anion Gap BUN Creatinine Creat Clearance w eGFR Random Glucose Lactic Acid Calcium Phosphorus Magnesium Total Bilirubin AST ALT Alkaline Phosphatase Creatine Kinase Creatine Kinase Index CK-MB (CK-2) Troponin I Total Protein Albumin Blood Type A POSITIVE A POSITIVE Antibody Screen Negative Crossmatch See Detail Crossmatch IS Only See Detail 11/19/18 11/19/18 11/19/18 15:00 15:20 15:20 WBC RBC Hgb Hct MCV MCH MCHC RDW Plt Count MPV Absolute Neuts (auto) Neutrophils % Neutrophils % (Manual) Band Neutrophils % Lymphocytes % Lymphocytes % (Manual) Monocytes % Monocytes % (Manual) Eosinophils % Eosinophils % (Manual) Basophils % Basophils % (Manual) Nucleated RBC % Platelet Estimate PT with INR 13.00 INR 1.10 H PTT (Actin FS) 26.5 Puncture Site ABG pH ABG pCO2 at Pt Temp ABG pO2 at Pt Temp ABG HCO3 ABG O2 Sat (Measured) ABG O2 Content ABG Base Excess Jair Test Oxygen Flow Rate Vent Mode Vent Rate PEEP Sodium 137 Potassium 4.7 Chloride 107 Carbon Dioxide 22 Anion Gap 8 BUN 14 Creatinine 0.9 Creat Clearance w eGFR 83.67 Random Glucose 235 H Lactic Acid Calcium 7.7 L Phosphorus Magnesium Total Bilirubin 0.4 AST 28 ALT 19 Alkaline Phosphatase 41 L Creatine Kinase 638 H Creatine Kinase Index 3.0 CK-MB (CK-2) 19.2 H Troponin I 0.12 H Total Protein 4.3 L Albumin 2.2 L Blood Type Antibody Screen Crossmatch Crossmatch IS Only 11/19/18 11/19/18 11/19/18 15:20 15:20 15:30 WBC 14.8 H RBC 4.26 Hgb 12.9 Hct 37.8 MCV 88.9 MCH 30.4 MCHC 34.2 RDW 15.2 Plt Count 143 MPV 8.4 Absolute Neuts (auto) Neutrophils % Neutrophils % (Manual) Band Neutrophils % Lymphocytes % Lymphocytes % (Manual) Monocytes % Monocytes % (Manual) Eosinophils % Eosinophils % (Manual) Basophils % Basophils % (Manual) Nucleated RBC % Platelet Estimate PT with INR INR PTT (Actin FS) Puncture Site No Result Required. ABG pH 7.37 ABG pCO2 at Pt Temp 28.2 L ABG pO2 at Pt Temp 327 H ABG HCO3 16.1 L ABG O2 Sat (Measured) 99.8 H ABG O2 Content 17.0 ABG Base Excess -7.5 L Jair Test No Result Required. Oxygen Flow Rate 100 Vent Mode Ac Vent Rate 12 PEEP 5.0 Sodium Potassium Chloride Carbon Dioxide Anion Gap BUN Creatinine Creat Clearance w eGFR Random Glucose Lactic Acid 4.7 H* Calcium Phosphorus Magnesium Total Bilirubin AST ALT Alkaline Phosphatase Creatine Kinase Creatine Kinase Index CK-MB (CK-2) Troponin I Total Protein Albumin Blood Type Antibody Screen Crossmatch Crossmatch IS Only 11/19/18 11/19/18 11/20/18 20:35 20:45 05:30 WBC 16.3 H RBC 4.26 Hgb 12.8 Hct 37.1 MCV 87.1 MCH 30.0 MCHC 34.4 RDW 15.0 Plt Count 177 D MPV 8.6 Absolute Neuts (auto) 14.1 H Neutrophils % 86.6 H Neutrophils % (Manual) 76.0 Band Neutrophils % 11.0 Lymphocytes % 4.5 L Lymphocytes % (Manual) 4.0 L Monocytes % 8.8 Monocytes % (Manual) 7 Eosinophils % 0.0 Eosinophils % (Manual) 2.0 Basophils % 0.1 Basophils % (Manual) 0.0 Nucleated RBC % 0 Platelet Estimate Adequate PT with INR INR PTT (Actin FS) Puncture Site ABG pH ABG pCO2 at Pt Temp ABG pO2 at Pt Temp ABG HCO3 ABG O2 Sat (Measured) ABG O2 Content ABG Base Excess Jair Test Oxygen Flow Rate Vent Mode Vent Rate PEEP Sodium 135 L Potassium 4.7 Chloride 104 Carbon Dioxide 24 Anion Gap 8 BUN 16 Creatinine 1.1 Creat Clearance w eGFR 66.37 Random Glucose 175 H Lactic Acid 3.7 H* Calcium 7.2 L Phosphorus 3.5 Magnesium 1.4 L Total Bilirubin 0.2 AST 51 H ALT 25 Alkaline Phosphatase 40 L Creatine Kinase Creatine Kinase Index CK-MB (CK-2) Troponin I Total Protein 4.9 L Albumin 2.6 L Blood Type Antibody Screen Crossmatch Crossmatch IS Only Laboratory Results - last 24 hr 11/19/18 11/19/18 11/19/18 11:50 15:00 15:20 WBC RBC Hgb Hct MCV MCH MCHC RDW Plt Count MPV Absolute Neuts (auto) Neutrophils % Neutrophils % (Manual) Band Neutrophils % Lymphocytes % Lymphocytes % (Manual) Monocytes % Monocytes % (Manual) Eosinophils % Eosinophils % (Manual) Basophils % Basophils % (Manual) Nucleated RBC % Platelet Estimate PT with INR 13.00 INR 1.10 H PTT (Actin FS) 26.5 Puncture Site ABG pH ABG pCO2 at Pt Temp ABG pO2 at Pt Temp ABG HCO3 ABG O2 Sat (Measured) ABG O2 Content ABG Base Excess Jair Test Oxygen Flow Rate Vent Mode Vent Rate PEEP Sodium Potassium Chloride Carbon Dioxide Anion Gap BUN Creatinine Creat Clearance w eGFR Random Glucose Lactic Acid Calcium Phosphorus Magnesium Total Bilirubin AST ALT Alkaline Phosphatase Creatine Kinase 638 H Creatine Kinase Index 3.0 CK-MB (CK-2) 19.2 H Troponin I 0.12 H Total Protein Albumin Blood Type Cancelled Antibody Screen Cancelled Crossmatch IS Only See Detail 11/19/18 11/19/18 11/19/18 15:20 15:20 15:20 WBC 14.8 H RBC 4.26 Hgb 12.9 Hct 37.8 MCV 88.9 MCH 30.4 MCHC 34.2 RDW 15.2 Plt Count 143 MPV 8.4 Absolute Neuts (auto) Neutrophils % Neutrophils % (Manual) Band Neutrophils % Lymphocytes % Lymphocytes % (Manual) Monocytes % Monocytes % (Manual) Eosinophils % Eosinophils % (Manual) Basophils % Basophils % (Manual) Nucleated RBC % Platelet Estimate PT with INR INR PTT (Actin FS) Puncture Site ABG pH ABG pCO2 at Pt Temp ABG pO2 at Pt Temp ABG HCO3 ABG O2 Sat (Measured) ABG O2 Content ABG Base Excess Jair Test Oxygen Flow Rate Vent Mode Vent Rate PEEP Sodium 137 Potassium 4.7 Chloride 107 Carbon Dioxide 22 Anion Gap 8 BUN 14 Creatinine 0.9 Creat Clearance w eGFR 83.67 Random Glucose 235 H Lactic Acid 4.7 H* Calcium 7.7 L Phosphorus Magnesium Total Bilirubin 0.4 AST 28 ALT 19 Alkaline Phosphatase 41 L Creatine Kinase Creatine Kinase Index CK-MB (CK-2) Troponin I Total Protein 4.3 L Albumin 2.2 L Blood Type Antibody Screen Crossmatch IS Only 11/19/18 11/19/18 11/19/18 15:30 20:35 20:45 WBC 16.3 H RBC 4.26 Hgb 12.8 Hct 37.1 MCV 87.1 MCH 30.0 MCHC 34.4 RDW 15.0 Plt Count 177 D MPV 8.6 Absolute Neuts (auto) 14.1 H Neutrophils % 86.6 H Neutrophils % (Manual) 76.0 Band Neutrophils % 11.0 Lymphocytes % 4.5 L Lymphocytes % (Manual) 4.0 L Monocytes % 8.8 Monocytes % (Manual) 7 Eosinophils % 0.0 Eosinophils % (Manual) 2.0 Basophils % 0.1 Basophils % (Manual) 0.0 Nucleated RBC % 0 Platelet Estimate Adequate PT with INR INR PTT (Actin FS) Puncture Site No Result Required. ABG pH 7.37 ABG pCO2 at Pt Temp 28.2 L ABG pO2 at Pt Temp 327 H ABG HCO3 16.1 L ABG O2 Sat (Measured) 99.8 H ABG O2 Content 17.0 ABG Base Excess -7.5 L Jair Test No Result Required. Oxygen Flow Rate 100 Vent Mode Ac Vent Rate 12 PEEP 5.0 Sodium Potassium Chloride Carbon Dioxide Anion Gap BUN Creatinine Creat Clearance w eGFR Random Glucose Lactic Acid 3.7 H* Calcium Phosphorus Magnesium Total Bilirubin AST ALT Alkaline Phosphatase Creatine Kinase Creatine Kinase Index CK-MB (CK-2) Troponin I Total Protein Albumin Blood Type Antibody Screen Crossmatch IS Only 11/20/18 11/20/18 11/20/18 05:30 05:30 05:30 WBC 16.7 H RBC 3.52 L Hgb 10.5 L Hct 30.1 L D MCV 85.5 MCH 29.8 MCHC 34.8 RDW 15.1 Plt Count 165 MPV 8.4 Absolute Neuts (auto) 12.8 H Neutrophils % 76.3 Neutrophils % (Manual) Band Neutrophils % Lymphocytes % 10.1 D Lymphocytes % (Manual) Monocytes % 13.5 H Monocytes % (Manual) Eosinophils % 0.0 Eosinophils % (Manual) Basophils % 0.1 Basophils % (Manual) Nucleated RBC % 0 Platelet Estimate PT with INR 12.60 INR 1.07 PTT (Actin FS) 26.3 Puncture Site ABG pH ABG pCO2 at Pt Temp ABG pO2 at Pt Temp ABG HCO3 ABG O2 Sat (Measured) ABG O2 Content ABG Base Excess Jair Test Oxygen Flow Rate Vent Mode Vent Rate PEEP Sodium 135 L Potassium 4.7 Chloride 104 Carbon Dioxide 24 Anion Gap 8 BUN 16 Creatinine 1.1 Creat Clearance w eGFR 66.37 Random Glucose 175 H Lactic Acid Calcium 7.2 L Phosphorus 3.5 Magnesium 1.4 L Total Bilirubin 0.2 AST 51 H ALT 25 Alkaline Phosphatase 40 L Creatine Kinase Creatine Kinase Index CK-MB (CK-2) Troponin I 0.41 H Total Protein 4.9 L Albumin 2.6 L Blood Type Antibody Screen Crossmatch IS Only 11/20/18 05:30 WBC RBC Hgb Hct MCV MCH MCHC RDW Plt Count MPV Absolute Neuts (auto) Neutrophils % Neutrophils % (Manual) Band Neutrophils % Lymphocytes % Lymphocytes % (Manual) Monocytes % Monocytes % (Manual) Eosinophils % Eosinophils % (Manual) Basophils % Basophils % (Manual) Nucleated RBC % Platelet Estimate PT with INR INR PTT (Actin FS) Puncture Site ABG pH ABG pCO2 at Pt Temp ABG pO2 at Pt Temp ABG HCO3 ABG O2 Sat (Measured) ABG O2 Content ABG Base Excess Jair Test Oxygen Flow Rate Vent Mode Vent Rate PEEP Sodium Potassium Chloride Carbon Dioxide Anion Gap BUN Creatinine Creat Clearance w eGFR Random Glucose Lactic Acid 3.0 H* Calcium Phosphorus Magnesium Total Bilirubin AST ALT Alkaline Phosphatase Creatine Kinase Creatine Kinase Index CK-MB (CK-2) Troponin I Total Protein Albumin Blood Type Antibody Screen Crossmatch IS Only ASSESSMENT/PLAN: Acute Respiratory Failure POD #1: T12, L1, L2, L3, L4, L5, S1 laminectomies, T11-L5 facetectomies/ osteotomies, Simons-Villarreal osteotomies T12-L1, L1-L2, L3-L4, Posterior instrumentation T11-S1, Posterolateral arthrodesis T11-S1, Bone autograft, Bone allograft, Bone marrow aspiration, Stem cell autograft, Intra-operative neural monitoring, Intra-operative biplanar fluoroscopy, Durotomy repair, Complex wound closure (30cm). Shock: hypovolemic / Vasodilatory Wean to extubate IVF Wean pressors Post-op ABX Hold BP meds Pain control Once extubated -> Incentive Spirometry Mechanical VTE prophylaxis Dr Beebe Critical care time spent in reviewing chart, evaluating patient and formulating plan - 36 minutes.
[2018-11-20 14:37] LABS: ALBUMIN 2.6 g/dl (3.4-5.0); ALK PHOS 38 U/L (45-117); ANION GAP 7 MMOL/L (8-16); BILIRUBIN,TOTAL 0.3 mg/dL (0.2-1); BLOOD UREA NITROGEN 21 mg/dL (7-18); CALCIUM 7.8 mg/dL (8.5-10.1); CHLORIDE 104 mmol/L (98-107); CO2 24 mmol/L (21-32); CREATININE 1.1 mg/dL (0.55-1.3); GLUCOSE,RANDOM 125 mg/dL (74-106); MAGNESIUM 2.7 mg/dL (1.8-2.4); POTASSIUM 4.9 mmol/L (3.5-5.1); SGOT/AST 53 U/L (15-37); SGPT/ALT 24 U/L (13-61); SODIUM 135 mmol/L (136-145); TOT PROT 4.9 g/dl (6.4-8.2)
--- NOTE | 2018-11-20 18:18 | PN ---
Teaching Attending Note Name of Resident: Per Mcdonough ATTENDING PHYSICIAN STATEMENT I saw and evaluated the patient. I reviewed the resident's note and discussed the case with the resident. I agree with the resident's findings and plan as documented. SUBJECTIVE: Patient seen this morning. He was intubated and appeared comfortable. OBJECTIVE: Vital Signs Period Temp Pulse Resp BP Sys/Conde Pulse Ox Last 24 Hr 97.8 F-98.8 F 46-104 14-25 77-142/60-84 96-100 HEART: S1S2, RRR LUNGS: Clear ABDOMEN: Obese, soft, non-distended, normal BS EXTREMITIES: No edema Laboratory Results - last 24 hr 11/19/18 11/19/18 11/19/18 11:50 20:35 20:45 WBC 16.3 H RBC 4.26 Hgb 12.8 Hct 37.1 MCV 87.1 MCH 30.0 MCHC 34.4 RDW 15.0 Plt Count 177 D MPV 8.6 Absolute Neuts (auto) 14.1 H Neutrophils % 86.6 H Neutrophils % (Manual) 76.0 Band Neutrophils % 11.0 Lymphocytes % 4.5 L Lymphocytes % (Manual) 4.0 L Monocytes % 8.8 Monocytes % (Manual) 7 Eosinophils % 0.0 Eosinophils % (Manual) 2.0 Basophils % 0.1 Basophils % (Manual) 0.0 Nucleated RBC % 0 Platelet Estimate Adequate PT with INR INR PTT (Actin FS) Sodium Potassium Chloride Carbon Dioxide Anion Gap BUN Creatinine Creat Clearance w eGFR Random Glucose Lactic Acid 3.7 H* Calcium Phosphorus Magnesium Total Bilirubin AST ALT Alkaline Phosphatase Troponin I Total Protein Albumin Blood Type Cancelled Antibody Screen Cancelled Crossmatch IS Only See Detail 11/20/18 11/20/18 11/20/18 05:30 05:30 05:30 WBC 16.7 H RBC 3.52 L Hgb 10.5 L Hct 30.1 L D MCV 85.5 MCH 29.8 MCHC 34.8 RDW 15.1 Plt Count 165 MPV 8.4 Absolute Neuts (auto) 12.8 H Neutrophils % 76.3 Neutrophils % (Manual) Band Neutrophils % Lymphocytes % 10.1 D Lymphocytes % (Manual) Monocytes % 13.5 H Monocytes % (Manual) Eosinophils % 0.0 Eosinophils % (Manual) Basophils % 0.1 Basophils % (Manual) Nucleated RBC % 0 Platelet Estimate PT with INR 12.60 INR 1.07 PTT (Actin FS) 26.3 Sodium 135 L Potassium 4.7 Chloride 104 Carbon Dioxide 24 Anion Gap 8 BUN 16 Creatinine 1.1 Creat Clearance w eGFR 66.37 Random Glucose 175 H Lactic Acid Calcium 7.2 L Phosphorus 3.5 Magnesium 1.4 L Total Bilirubin 0.2 AST 51 H ALT 25 Alkaline Phosphatase 40 L Troponin I 0.41 H Total Protein 4.9 L Albumin 2.6 L Blood Type Antibody Screen Crossmatch IS Only 11/20/18 11/20/18 11/20/18 05:30 13:40 13:40 WBC 14.5 H RBC 3.15 L Hgb 9.4 L Hct 27.3 L MCV 86.8 MCH 29.8 MCHC 34.4 RDW 15.0 Plt Count 155 MPV 8.4 Absolute Neuts (auto) 11.4 H Neutrophils % 78.3 Neutrophils % (Manual) Band Neutrophils % Lymphocytes % 10.0 Lymphocytes % (Manual) Monocytes % 11.6 H Monocytes % (Manual) Eosinophils % 0.0 Eosinophils % (Manual) Basophils % 0.1 Basophils % (Manual) Nucleated RBC % 0 Platelet Estimate PT with INR INR PTT (Actin FS) Sodium 135 L Potassium 4.9 Chloride 104 Carbon Dioxide 24 Anion Gap 7 L BUN 21 H Creatinine 1.1 Creat Clearance w eGFR 66.37 Random Glucose 125 H Lactic Acid 3.0 H* Calcium 7.8 L Phosphorus Magnesium 2.7 H Total Bilirubin 0.3 AST 53 H ALT 24 Alkaline Phosphatase 38 L Troponin I 0.39 H Total Protein 4.9 L Albumin 2.6 L Blood Type Antibody Screen Crossmatch IS Only 11/20/18 13:40 WBC RBC Hgb Hct MCV MCH MCHC RDW Plt Count MPV Absolute Neuts (auto) Neutrophils % Neutrophils % (Manual) Band Neutrophils % Lymphocytes % Lymphocytes % (Manual) Monocytes % Monocytes % (Manual) Eosinophils % Eosinophils % (Manual) Basophils % Basophils % (Manual) Nucleated RBC % Platelet Estimate PT with INR INR PTT (Actin FS) Sodium Potassium Chloride Carbon Dioxide Anion Gap BUN Creatinine Creat Clearance w eGFR Random Glucose Lactic Acid 1.6 Calcium Phosphorus Magnesium Total Bilirubin AST ALT Alkaline Phosphatase Troponin I Total Protein Albumin Blood Type Antibody Screen Crossmatch IS Only Current Medications Generic Name Dose Route Start Last Admin Trade Name Freq PRN Reason Stop Dose Admin Atorvastatin Calcium 10 mg 11/19/18 22:00 11/19/18 22:13 Lipitor - PO Not Given HS [facility] Norepinephrine Bitartrate 4, 500 mls @ 37.5 mls/hr 11/19/18 18:45 11/20/18 13 :47 000 mcg/ Dextrose IV 4 mcg/min TITR HARRY 30 mls/hr Administration Protocol 5 MCG/MIN Midazolam HCl 100 mg/ Sodium 100 mls @ 1 mls/hr 11/19/18 19:00 11/20/18 07:30 Chloride IVPB 0 mg/hr TITR HARRY 0 mls/hr Titration Protocol 1 MG/HR Fentanyl 500 mcg/ Dextrose 100 mls @ 10 mls/hr 11/19/18 21:45 11/20/18 07:48 IVPB 0 mcg/hr TITR HARRY 0 mls/hr Titration Protocol 50 MCG/HR Lactated Ringer's 1,000 mls @ 150 mls/hr 11/20/18 08:28 11/20/18 17:25 Lactated Ringers Solution IV 150 mls/hr ASDIR HARRY Administration Midazolam HCl 2 mg 11/19/18 17:13 Versed - IVPUSH Q4H PRN AGITATION Morphine Sulfate 4 mg 11/19/18 17:30 11/20/18 17:22 Morphine Sulfate IVPUSH 4 mg Q4H PRN Administration PAIN LEVEL 6-10 Ondansetron HCl 4 mg 11/19/18 14:29 Zofran Injection IVPUSH Q6H PRN NAUSEA AND/OR VOMITING Tamsulosin HCl 0.4 mg 11/20/18 08:30 11/20/18 11:52 Flomax - PO Not Given DAILY@0830 [facility] Trimethoprim/Sulfamethoxazole 1 each 11/20/18 10:00 11/20/18 11:43 Bactrim Ds - PO Not Given DAILY [facility] ASSESSMENT AND PLAN: 1. Hypovolemic shock - Continue IV fluid, Levophed - Cozaar, Toprol XL held 2. Lumbar disc disease with radiculopathy, thoracolumbar stenosis - s/p T12, L1, L2, L3, L4, L5, S1 laminectomies; T11-L5 facetectomies/ osteotomies; Simons-Villarreal osteotomies T12-L1, L1-L2, L3-L4; posterior instrumentation T11-S1; posterolateral arthrodesis T11-S1; bone autograft; bone allograft; bone marrow aspiration; stem cell autograft; intra-operative neural monitoring; intra-operative biplanar fluoroscopy; durotomy repair; complex wound closure (30cm) on 11/19 - Remains intubated - weaning as per critical care 3. Acute blood loss anemia - Monitor hemoglobin 4. Demand ischemia secondary to hypotension - Resume aspirin when ok with surgery - Echocardiogram 5. Hypertension - Toprol XL, Cozaar held secondary to hypotension 6. Hyperlipidemia - Resume Lipitor when able to take oral meds 7. BPH - Resume Flomax when able to take oral meds
[2018-11-20] MEDS: FENTANYL INJECTION 500 MCG in DEXTROSE 5%-WATER - 90 ML IVPB SCH (21:22)
[2018-11-20] MEDS: MIDAZOLAM 100 MG in SODIUM CHLORIDE 100 ML IVPB SCH (21:22)
[2018-11-20] MEDS: ATORVASTATIN CA 10 MG TABLET (FP) PO SCH (23:06)
[2018-11-21] MEDS: LACTATED RINGERS SOLUTION 1,000 ML IV SCH ×4 (00:31→13:27)
[2018-11-21] MEDS: morphine SULFATE 4 MG/ML VIAL IVPUSH PRN ×5 (01:47→21:28)
--- NOTE | 2018-11-21 06:37 | PN ---
Physical Exam: SUBJECTIVE: Patient seen and examined. Yet to pass gas, still being weaned off pressors. No nausea. Pain managed on pain meds. OBJECTIVE: Vital Signs Period Temp Pulse Resp BP Sys/Conde Pulse Ox Last 24 Hr 97.8 F-99.4 F 78-106 20-30 77-120/55-79 96-100 Vital Signs Temp 98.7 F 11/21/18 10:00 Pulse 90 11/21/18 10:00 Resp 22 H 11/21/18 10:00 BP 114/70 11/21/18 10:00 Pulse Ox 100 11/21/18 09:00 Intake & Output 11/20/18 11/20/18 11/21/18 11:59 23:59 11:59 Intake Total 2394 2750 2051 Output Total 886 374 2350 Balance 1594 1890 501 Weight 87.543 kg 91.796 kg Intake: IV 2394 2600 2051 Lactated Ringers Solution 1500 1710 1,000 ml @ 125 mls/hr IV ASDIR HARRY Rx#: [id number] Lactated Ringers Solution 1760 1,000 ml @ 150 mls/hr IV ASDIR HARRY Rx#: [id number] Levophed - 4,000 Mcg In 750 340 341 D5w - 496 ml @ 5 MCG/MIN 37.5 mls/hr IV TITR HARRY Rx#:[id number] Normal Saline - 500 ml @ 500 500 mls/hr IV ASDIR STA Rx#:[id number] Sublimaze Injection - 500 84 Mcg In D5w - 90 ml @ 50 MCG/HR 10 mls/hr IVPB TITR HARRY Rx#:[id number] Versed - 100 mg In Normal 60 Saline - 100 ml @ 1 MG/ HR 1 mls/hr IVPB TITR HARRY Rx#:[id number] IVPB 150 Output: Drainage 200 160 100 Back 200 160 100 Urine [phone] Gomez [phone] Other: Voiding Method Indwelling Catheter Indwelling Catheter Indwelling Catheter Weight Measurement Method [facility] GENERAL: The patient is awake, alert, and fully oriented, in no acute distress. EYES: PERRL, extraocular movements intact, ENT: moist mucous membranes. NECK: supple. LUNGS: Breath sounds equal, clear to auscultation bilaterally, no wheezes, no crackles HEART: Regular rate and rhythm, S1, S2 ABDOMEN: Obese, Soft, nontender,absent bowel sounds, no guarding EXTREMITIES: 2+ pulses, warm, well-perfused, no edema. NEUROLOGICAL: Alert, oriented, sensation intake, good motor tone globally, no lateralizing signs Lines: Gomez, AMALIA (05/22/19) CBC, BMP 11/21/18 05:30 11/21/18 05:30 Laboratory Results - last 24 hr 11/19/18 11/20/18 11/20/18 11:50 05:30 05:30 WBC 16.7 H RBC 3.52 L Hgb 10.5 L Hct 30.1 L D MCV 85.5 MCH 29.8 MCHC 34.8 RDW 15.1 Plt Count 165 MPV 8.4 Absolute Neuts (auto) 12.8 H Neutrophils % 76.3 Lymphocytes % 10.1 D Monocytes % 13.5 H Eosinophils % 0.0 Basophils % 0.1 Nucleated RBC % 0 PT with INR INR PTT (Actin FS) Sodium 135 L Potassium 4.7 Chloride 104 Carbon Dioxide 24 Anion Gap 8 BUN 16 Creatinine 1.1 Creat Clearance w eGFR 66.37 POC Glucometer Random Glucose 175 H Lactic Acid Calcium 7.2 L Phosphorus 3.5 Magnesium 1.4 L Total Bilirubin 0.2 AST 51 H ALT 25 Alkaline Phosphatase 40 L Troponin I 0.41 H Total Protein 4.9 L Albumin 2.6 L Blood Type Cancelled Antibody Screen Cancelled Crossmatch IS Only See Detail 11/20/18 11/20/18 11/20/18 05:30 05:30 13:40 WBC 14.5 H RBC 3.15 L Hgb 9.4 L Hct 27.3 L MCV 86.8 MCH 29.8 MCHC 34.4 RDW 15.0 Plt Count 155 MPV 8.4 Absolute Neuts (auto) 11.4 H Neutrophils % 78.3 Lymphocytes % 10.0 Monocytes % 11.6 H Eosinophils % 0.0 Basophils % 0.1 Nucleated RBC % 0 PT with INR 12.60 INR 1.07 PTT (Actin FS) 26.3 Sodium Potassium Chloride Carbon Dioxide Anion Gap BUN Creatinine Creat Clearance w eGFR POC Glucometer Random Glucose Lactic Acid 3.0 H* Calcium Phosphorus Magnesium Total Bilirubin AST ALT Alkaline Phosphatase Troponin I Total Protein Albumin Blood Type Antibody Screen Crossmatch IS Only 11/20/18 11/20/18 11/21/18 13:40 13:40 06:31 WBC RBC Hgb Hct MCV MCH MCHC RDW Plt Count MPV Absolute Neuts (auto) Neutrophils % Lymphocytes % Monocytes % Eosinophils % Basophils % Nucleated RBC % PT with INR INR PTT (Actin FS) Sodium 135 L Potassium 4.9 Chloride 104 Carbon Dioxide 24 Anion Gap 7 L BUN 21 H Creatinine 1.1 Creat Clearance w eGFR 66.37 POC Glucometer 322 Random Glucose 125 H Lactic Acid 1.6 Calcium 7.8 L Phosphorus Magnesium 2.7 H Total Bilirubin 0.3 AST 53 H ALT 24 Alkaline Phosphatase 38 L Troponin I 0.39 H Total Protein 4.9 L Albumin 2.6 L Blood Type Antibody Screen Crossmatch IS Only Active Medications Generic Name Dose Route Start Last Admin Trade Name Freq PRN Reason Stop Dose Admin Atorvastatin Calcium 10 mg 11/19/18 22:00 11/20/18 23:06 Lipitor - PO 10 mg HS HARRY Administration Norepinephrine Bitartrate 4, 500 mls @ 37.5 mls/hr 11/19/18 18:45 11/20/18 21 :22 000 mcg/ Dextrose IV Not Given TITR HARRY Protocol 5 MCG/MIN Midazolam HCl 100 mg/ Sodium 100 mls @ 1 mls/hr 11/19/18 19:00 11/20/18 21:22 Chloride IVPB Not Given TITR HARRY Protocol 1 MG/HR Fentanyl 500 mcg/ Dextrose 100 mls @ 10 mls/hr 11/19/18 21:45 11/20/18 21:22 IVPB Not Given TITR HARRY Protocol 50 MCG/HR Lactated Ringer's 1,000 mls @ 150 mls/hr 11/20/18 08:28 11/21/18 00:31 Lactated Ringers Solution IV 150 mls/hr ASDIR HARRY Administration Midazolam HCl 2 mg 11/19/18 17:13 Versed - IVPUSH Q4H PRN AGITATION Morphine Sulfate 4 mg 11/19/18 17:30 11/21/18 05:55 Morphine Sulfate IVPUSH 4 mg Q4H PRN Administration PAIN LEVEL 6-10 Ondansetron HCl 4 mg 11/19/18 14:29 Zofran Injection IVPUSH Q6H PRN NAUSEA AND/OR VOMITING Tamsulosin HCl 0.4 mg 11/20/18 08:30 11/20/18 11:52 Flomax - PO Not Given DAILY@0830 [facility] Trimethoprim/Sulfamethoxazole 1 each 11/20/18 10:00 11/20/18 11:43 Bactrim Ds - PO Not Given DAILY [facility] ASSESSMENT/PLAN: 68 year old male with PMH 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 Pt lost 2300 cc blood during the procedure, was given 2UPRC and 7L of LR, 875 cell saver in surgery. Pt was hypotensive, requiring pressors. NEURO Post op day 2 (11/19/18) s/p T12, L1, L2, L3, L4, L5, S1 laminectomies, T11-L5 facetectomies/osteotomies, Simons-Villarreal osteotomies T12-L1, L1-L2, L3-L4, Posterior instrumentation T11-S1, Posterolateral arthrodesis T11-S1 #Multilevel spine surgery -Periop Cefazolin 2gm Q8H for 24 hrs -Zofran 4 mg IV Q6H -Morphine 4 mg Q4H PRN pain -Acetaminophen IV 1000 mg Q8H -Hold home ASA -NPO CARDIOVASCULAR #Anemia- H/H-7.3/20.8 Transfuse one unit PRBCs check post transfusion CBC #Hypotension -Left IJ placed for pressor use 11/19/18 -Levophed, titrate off as tolerated -2U PRBC given in OR -7L LR given in OR -875 cell saver given in OR -Hold home losartan -Hold home metoprolol #HX HLD -Atorvastatin 10 mg PO HS on hold NPO RESPIRATORY -Extubated 11/20/18 -Supplemental )2 as needed to maintain sats >92% ID -Home Bactrim 1 each PO daily- on hold -Cefazolin post op given -dcd -Lactic acidosis: 4.7>>3.7>>3.0 (likely due to hypotension periop) --Cont LR 150 cc/hour FEN -LR @150 cc/hour -Monitor electrolytes -Naphosph given -NPO DISPO ICU pending weaning off vasopressors Visit type - Emergency Visit Emergency Visit: Yes ED Registration Date: 11/19/18 Care time: The patient presented to the Emergency Department on the above date and was hospitalized for further evaluation of their emergent condition. - New Patient This patient is new to me today: No - Critical Care Critical Care patient: Yes Total Critical Care Time (in minutes): 36 Critical Care Statement: The care of this patient involved high complexity decision making to prevent further life threatening deterioration of the patient 's condition and/or to evaluate & treat vital organ system(s) failure or risk of failure. - Discharge Referral Referred to [facility] Med P.C.: No
[2018-11-21 06:48] LABS: BASO % 0.3 % (0-2.0); EOS % 0.5 % (0-4.5); HEMATOCRIT 20.8 % (35.4-49); HEMOGLOBIN 7.3 GM/dL (11.7-16.9); LYMPH % 11.2 % (8-40); MCH 29.9 pg (25.7-33.7); MCHC 34.9 g/dl (32.0-35.9); MEAN CELL VOLUME 85.6 fl (80-96); MONO % 12.1 % (3.8-10.2); NEUT % 75.9 % (42.8-82.8); PLATELET COUNT 118 K/MM3 (134-434); RBC 2.43 M/mm3 (4.00-5.60); RDW 14.8 % (11.9-15.9); WHITE BLOOD COUNT 10.5 K/mm3 (4.0-10.0)
[2018-11-21 07:36] LABS: ALBUMIN 2.4 g/dl (3.4-5.0); ALK PHOS 39 U/L (45-117); ANION GAP 5 MMOL/L (8-16); BILIRUBIN,TOTAL 0.4 mg/dL (0.2-1); BLOOD UREA NITROGEN 16 mg/dL (7-18); CALCIUM 7.7 mg/dL (8.5-10.1); CHLORIDE 104 mmol/L (98-107); CO2 25 mmol/L (21-32); CREATININE 0.7 mg/dL (0.55-1.3); GLUCOSE,RANDOM 107 mg/dL (74-106); MAGNESIUM 2.1 mg/dL (1.8-2.4); PHOSPHOROUS 2.2 mg/dL (2.5-4.9); POTASSIUM 4.3 mmol/L (3.5-5.1); SGOT/AST 58 U/L (15-37); SGPT/ALT 24 U/L (13-61); SODIUM 134 mmol/L (136-145); TOT PROT 4.8 g/dl (6.4-8.2)
[2018-11-21] MEDS ORDERED: SODIUM PHOSPHATE - 30 MM in SODIUM CHLORIDE 250 ML IVPB ONE (08:14)
[2018-11-21] MEDS: TAMSULOSIN HCL 0.4 MG CAP PO SCH (08:30)
[2018-11-21] MEDS: NOREPINEPHRINE BITARTRATE 4,000 MCG in DEXTROSE 5%-WATER - 496 ML IV SCH ×2 (08:31→18:45)
[2018-11-21] MEDS: SULFAMETHOXAZOLE/TRIMETHOPRIM 800MG/160MG D.S. TABLET PO SCH (09:42)
[2018-11-21] MEDS ORDERED: INSULIN SLIDING SCALE (NOVOLOG) 1 VIAL SQ SCH (11:00)
--- NOTE | 2018-11-21 13:02 | ECHO ---
Name: REVA PATEL Exam:Adult Echocardiogram Study Date: 11/21/2018 08:35 AM Age: 68 yrs Reason For Study: Elevated Troponin Height: 66 in Weight: 193 lb BSA: 2.0 m2 MMode/2D Measurements & Calculations IVSd: 1.0 cm ACS: 1.9 cm LVIDd: 4.4 cm LVIDs: 3.3 cm LVPWd: 1.1 cm EDV(Teich): 85.7 ml LVOT diam: 2.0 cm ESV(Teich): 42.8 ml RV S Ji: 11.1 cm/sec Doppler Measurements & Calculations MV E max ji: 105.6 cm/sec Med Peak E' Ji: 8.8 cm/sec MV A max ji: 105.6 cm/sec Med E/e': 12.0 MV E/A: 1.0 Lat Peak E' Ji: 11.1 cm/sec Lat E/e': 9.5 Procedure A two-dimensional transthoracic echocardiogram with color flow and Doppler was performed. The study w as technically difficult with many images being suboptimal in quality. The study was non-diagnostic in q uality. No definitive statements could be made about this echo due to extremely poor acoustic windows. Left Ventricle The left ventricular size, thickness and function are normal. The left ventricular ejection fraction is normal. Regional wall motion abnormalities cannot be excluded due to limited visualization. Right Ventricle The right ventricle is not well visualized. Atria The left atrium is not well visualized. Right atrium not well visualized. Mitral Valve The mitral valve is not well visualized. Tricuspid Valve The tricuspid valve is not well visualized. Aortic Valve The aortic valve is not well visualized. Pulmonic Valve The pulmonic valve is not well visualized. Pericardium/Pleura There is no pericardial effusion. Interpretation Summary The study was technically difficult with many images being suboptimal in quality. The left ventricular size, thickness and function are normal The left ventricular ejection fraction is normal. Regional wall motion abnormalities cannot be excluded due to limited visualization. The mitral valve is not well visualized. The tricuspid valve is not well visualized. The aortic valve is not well visualized. The pulmonic valve is not well visualized. The study was non-diagnostic in quality. No definitive statements could be made about this echo due t o extremely poor acoustic windows. MD Kj Laurent 11/21/2018 01:02 PM
--- NOTE | 2018-11-21 13:10 | PN ---
Teaching Attending Note Name of Resident: Mei Del Valle ATTENDING PHYSICIAN STATEMENT I saw and evaluated the patient. I reviewed the resident's note and discussed the case with the resident. I agree with the resident's findings and plan as documented. SUBJECTIVE: Pt seen and examined in the ICU. Extubated yesterday without incident. Remains on low dose levophed gtt. Receiving PRBC transfusion for anemia this AM. Denies shortness of breath, chest pain. No flatus yet, no nausea or vomiting. OBJECTIVE: Vital Signs Period Temp Pulse Resp BP Sys/Conde Pulse Ox Last 24 Hr 98.0 F-99.4 F 78-106 19-30 90-120/55-76 100-100 Intake & Output 11/18/18 11/19/18 11/20/18 11/21/18 23:59 23:59 23:59 23:59 Intake Total 44557 5144 2651 Output Total 2425 1660 1550 Balance 7670 3484 1101 Weight 87.543 kg 91.796 kg Gen: NAD at rest Heart: RRR Lung: decreased breath sounds at the bases Abd: distended, nontender Ext: no edema CBC, BMP 11/21/18 05:30 11/21/18 05:30 Active Medications Atorvastatin Calcium (Lipitor -) 10 mg PO HS HARRY Last Admin: 11/20/18 23:06 Dose: 10 mg Norepinephrine Bitartrate 4, (000 mcg/ Dextrose) 500 mls @ 37.5 mls/hr IV TITR HARRY; Protocol Last Titration: 11/21/18 12:58 Dose: 2 mcg/min, 15 mls/hr Midazolam HCl 100 mg/ Sodium (Chloride) 100 mls @ 1 mls/hr IVPB TITR HARRY; Protocol Last Admin: 11/20/18 21:22 Dose: Not Given Fentanyl 500 mcg/ Dextrose 100 mls @ 10 mls/hr IVPB TITR HARRY; Protocol Last Admin: 11/20/18 21:22 Dose: Not Given Lactated Ringer's (Lactated Ringers Solution) 1,000 mls @ 150 mls/hr IV ASDIR HARRY Last Admin: 11/21/18 08:28 Dose: Not Given Insulin Aspart (Novolog Vial Sliding Scale -) 1 vial SQ ACHS HARRY; Protocol Last Admin: 11/21/18 11:21 Dose: Not Given Morphine Sulfate (Morphine Sulfate) 4 mg IVPUSH Q4H PRN PRN Reason: PAIN LEVEL 6-10 Last Admin: 11/21/18 11:18 Dose: 4 mg Ondansetron HCl (Zofran Injection) 4 mg IVPUSH Q6H PRN PRN Reason: NAUSEA AND/OR VOMITING Tamsulosin HCl (Flomax -) 0.4 mg PO DAILY@0830 [facility] Last Admin: 11/21/18 08:30 Dose: Not Given Trimethoprim/Sulfamethoxazole (Bactrim Ds -) 1 each PO DAILY [facility] Last Admin: 11/21/18 09:42 Dose: Not Given ASSESSMENT AND PLAN: Lumbar Stenosis with radiculopathy and claudication s/p T12-S1 Laminectomies/Posterior Instrumentation/Arthrodesis/Durotomy Repair Acute Blood Loss Anemia Hypovolemic Shock Lactic Acidosis +Troponins likely Demand Ischemia Thrombocytopenia s/p Acute Respiratory Failure Hypercholesterolemia - monitor H/H - transfuse as needed - IVF - titrate pressors to maintain MAP >65 - pain control - incentive spirometry - PO when flatus - d/c coles when OOB - DVT prophylaxis - continue ICU monitoring critical care time spent in reviewing chart, evaluating patient and formulating plan 35 min
[2018-11-21 15:26] LABS: BASO % 0.2 % (0-2.0); EOS % 0.9 % (0-4.5); HEMATOCRIT 25.7 % (35.4-49); HEMOGLOBIN 8.6 GM/dL (11.7-16.9); LYMPH % 10.3 % (8-40); MCHC 33.3 g/dl (32.0-35.9); MEAN CELL VOLUME 84.1 fl (80-96); MEAN PLT VOLUME 7.9 fl (7.5-11.1); MONO % 12.3 % (3.8-10.2); NEUT % 76.3 % (42.8-82.8); PLATELET COUNT 114 K/MM3 (134-434); RBC 3.05 M/mm3 (4.00-5.60); RDW 15.1 % (11.9-15.9); WHITE BLOOD COUNT 9.5 K/mm3 (4.0-10.0)
--- NOTE | 2018-11-21 15:43 | PN ---
Progress Note (short form) - Note Progress Note: POD 2, s/p T12-S1/Fusion with incidental durotomy, c/b Acute Blood Loss Anemia Hypovolemic Shock, Lactic Acidosis +Troponins likely Demand Ischemia Thrombocytopenia Pt seen and examined. Sitting up in the chair with family bedside. Pt reports he feels "okay" overall. This is the first time he has been oob since surgery, reports some pain with standing/walking controlled with current pain regimen. Has not had PO yet, no flatus as of yet. Coles remains in place. Denies cp/sob, n/v/d. Vital Signs Temp 100.2 F H 11/21/18 14:00 Pulse 94 H 11/21/18 14:00 Resp 20 11/21/18 14:00 BP 131/96 11/21/18 14:00 Pulse Ox 100 11/21/18 09:00 Intake & Output 11/20/18 11/21/18 11/21/18 23:59 11:59 23:59 Intake Total 2750 2051 600 Output Total 860 1550 Balance 1890 501 600 Weight 202 lb 6 oz 202 lb Intake: IV 2600 2051 Lactated Ringers Solution 1710 1,000 ml @ 125 mls/hr IV ASDIR HARRY Rx#: [id number] Lactated Ringers Solution 1760 1,000 ml @ 150 mls/hr IV ASDIR HARRY Rx#: [id number] Levophed - 4,000 Mcg In 340 341 D5w - 496 ml @ 5 MCG/MIN 37.5 mls/hr IV TITR HARRY Rx#:[id number] Normal Saline - 500 ml @ 500 500 mls/hr IV ASDIR STA Rx#:[id number] IVPB 150 250 Oral 0 Packed Cells 350 Output: Drainage 160 100 Back 160 100 Urine 700 1450 Coles 700 1450 Other: Voiding Method Indwelling Catheter Indwelling Catheter Height 5 ft 6 in Body Mass Index (BMI) 32.5 Weight Measurement Method Built in [facility] CBC, BMP 11/21/18 14:45 11/21/18 05:30 Gen: awake, alert, nad. Sitting in chair with family bedside. Appears comfortable. Resp: unlabored on O2 NC Back: Dressing with mild drainage (dried serosanguinous output) proximally. Hemovac in place with <10ml serosanguinous drainage in reservoir. Neuro: B/L le dorsiflexion 3/5, plantar flexion 4/5. 4+/5 knee ext/flex, 4+/5 hip flexion b/l. SILT b/l Coles in place with yellow urine in bag, approx 500ml A/P: 68 y/o M w/ PMHx HTN, HLD, BPH, multi-level lumbar intervertebral disc disorder/thoracolumbar stenosis with lower extremity radiculopathy/neurogenic claudication, now POD 2, s/p T12-S1/Fusion with incidental durotomy, c/b Acute Blood Loss Anemia Hypovolemic Shock, Lactic Acidosis +Troponins likely Demand Ischemia, Thrombocytopenia 11/20: Extubated, s/p 2 units prbc 11/21: S/p 1 unit prbc, h/h 8.6/25.7 from 7.3/20.8 prior. Fever overnight, tmax 101.2. OOB to chair with PT. Troponins trending down, Cardiology following (Dr Stanley). Creatinine trending down, currently 0.7. Lactic acid resolved, currently 1.0. Coles output 1450 ml from last night to this afternoon. Pressors being currently being weaned. -Obtain incentive spirometry, respiratory made aware -OOB with PT -Monitor & record HV output -Continue to monitor H/H and transfuse as needed -Pain control -PO when passing flatus -D/c coles when OOB -Remainder of plan per ICU d/w attending Dr Rao
--- NOTE | 2018-11-21 16:57 | PN ---
Progress Note, Physician History of Present Illness: Resting comfortably, post-op pain well-controlled. - Current Medication List Current Medications: Active Medications Atorvastatin Calcium (Lipitor -) 10 mg PO HS [facility] Last Admin: 11/20/18 23:06 Dose: 10 mg Norepinephrine Bitartrate 4, (000 mcg/ Dextrose) 500 mls @ 37.5 mls/hr IV TITR HARRY; Protocol Last Titration: 11/21/18 13:20 Dose: 0 mcg/min, 0 mls/hr Lactated Ringer's (Lactated Ringers Solution) 1,000 mls @ 150 mls/hr IV ASDIR HARRY Last Admin: 11/21/18 13:27 Dose: 150 mls/hr Doxycycline Hyclate 100 mg/ (Dextrose) 100 mls @ 50 mls/hr IVPB BID HARRY Morphine Sulfate (Morphine Sulfate) 4 mg IVPUSH Q4H PRN PRN Reason: PAIN LEVEL 6-10 Last Admin: 11/21/18 11:18 Dose: 4 mg Ondansetron HCl (Zofran Injection) 4 mg IVPUSH Q6H PRN PRN Reason: NAUSEA AND/OR VOMITING Tamsulosin HCl (Flomax -) 0.4 mg PO DAILY@0830 [facility] Last Admin: 11/21/18 08:30 Dose: Not Given Trimethoprim/Sulfamethoxazole (Bactrim Ds -) 1 each PO DAILY [facility] Last Admin: 11/21/18 09:42 Dose: Not Given - Objective Vital Signs: Vital Signs Temperature 99.0 F 11/21/18 16:00 Pulse Rate 93 H 11/21/18 16:00 Respiratory Rate 22 H 11/21/18 16:00 Blood Pressure 116/67 11/21/18 16:00 O2 Sat by Pulse Oximetry (%) 100 11/21/18 09:00 Constitutional: Yes: No Distress, Calm Neck: Yes: Supple Cardiovascular: Yes: Regular Rate and Rhythm Respiratory: Yes: Regular, Diminished Gastrointestinal: Yes: Soft, Hypoactive Bowel Sounds Edema: No Labs: CBC, BMP 11/21/18 14:45 11/21/18 05:30 INR, PTT INR 1.07 (0.83-1.09) 11/20/18 05:30 Assessment/Plan Problem List - Problems (1) HTN (hypertension) Code(s): I10 - ESSENTIAL (PRIMARY) HYPERTENSION Qualifiers: Hypertension type: essential hypertension Qualified Code(s): I10 - Essential (primary) hypertension (2) Hyperlipidemia Code(s): E78.5 - HYPERLIPIDEMIA, UNSPECIFIED Qualifiers: Hyperlipidemia type: pure hypercholesterolemia Qualified Code(s): E78.00 - Pure hypercholesterolemia, unspecified; E78.0 - Pure hypercholesterolemia (3) Hypotension after procedure Code(s): I95.81 - POSTPROCEDURAL HYPOTENSION (4) S/P spinal surgery Code(s): Z98.890 - OTHER SPECIFIED POSTPROCEDURAL STATES 11/21/2018 Normal LV size and fxn, poor acoustic windows preclude valve eval 1. Lumbar Stenosis with radiculopathy and claudication 2. s/p T12-S1 Laminectomies/Posterior Instrumentation/Arthrodesis/Durotomy Repair 3. Acute Blood Loss Anemia 4. Hypovolemic Shock 6. Lactic Acidosis 7. +Troponins likely Demand Ischemia 8. Thrombocytopenia 9. s/p Acute Respiratory Failure 10. Hypercholesterolemia P: 1. Monitor H/H and transfuse as needed 2. IVF 3. Wean pressors to maintain MAP >65 4. pain control 5. incentive spirometry 6. PO when flatus 7. d/c coles when OOB 8. DVT prophylaxis 9. continue ICU monitoring
--- NOTE | 2018-11-21 17:09 | PN ---
Progress Note, Physician Chief Complaint: Lumbar disc disease with radiculopathy, thoracolumbar stenosis : - s/p T12, L1, L2, L3, L4, L5, S1 laminectomies; T11-L5 facetectomies/ osteotomies; Simons-Villarreal osteotomies T12-L1, L1-L2, L3-L4; posterior instrumentation T11-S1; posterolateral arthrodesis T11-S1; bone autograft; bone allograft; bone marrow aspiration; stem cell autograft; intra-operative neural monitoring; intra-operative biplanar fluoroscopy; durotomy repair; complex wound closure (30cm) on 11/19 History of Present Illness: 24 HR Events -pt with downtrending H/H (7.3/20.8), pt transfused 1unit PRBC -pt complains of uncontrolled back pain -pt extubated on 11/20 -pt with fevers overnight 101.2 -troponin downtrending - Current Medication List Current Medications: Active Medications Atorvastatin Calcium (Lipitor -) 10 mg PO HS [facility] Last Admin: 11/20/18 23:06 Dose: 10 mg Norepinephrine Bitartrate 4, (000 mcg/ Dextrose) 500 mls @ 37.5 mls/hr IV TITR HARRY; Protocol Last Titration: 11/21/18 13:20 Dose: 0 mcg/min, 0 mls/hr Lactated Ringer's (Lactated Ringers Solution) 1,000 mls @ 150 mls/hr IV ASDIR HARRY Last Admin: 11/21/18 13:27 Dose: 150 mls/hr Doxycycline Hyclate 100 mg/ (Dextrose) 100 mls @ 50 mls/hr IVPB BID [facility] Morphine Sulfate (Morphine Sulfate) 4 mg IVPUSH Q4H PRN PRN Reason: PAIN LEVEL 6-10 Last Admin: 11/21/18 11:18 Dose: 4 mg Ondansetron HCl (Zofran Injection) 4 mg IVPUSH Q6H PRN PRN Reason: NAUSEA AND/OR VOMITING Tamsulosin HCl (Flomax -) 0.4 mg PO DAILY@0830 [facility] Last Admin: 11/21/18 08:30 Dose: Not Given Trimethoprim/Sulfamethoxazole (Bactrim Ds -) 1 each PO DAILY [facility] Last Admin: 11/21/18 09:42 Dose: Not Given - Objective Vital Signs: Vital Signs Temperature 99.0 F 11/21/18 16:00 Pulse Rate 93 H 11/21/18 16:00 Respiratory Rate 22 H 11/21/18 16:00 Blood Pressure 116/67 11/21/18 16:00 O2 Sat by Pulse Oximetry (%) 100 11/21/18 09:00 Constitutional: Yes: Well Nourished, Calm, Mild Distress (due to pain) Eyes: Yes: Conjunctiva Clear, PERRL HENT: Yes: Atraumatic, Normocephalic Neck: Yes: Supple Cardiovascular: Yes: Regular Rate and Rhythm Respiratory: Yes: Regular, Diminished, On Nasal O2 Gastrointestinal: Yes: Soft, Abdomen, Obese, Hypoactive Bowel Sounds ...Rectal Exam: Yes: Deferred Musculoskeletal: Yes: Back Pain, Joint Stiffness, Muscle Weakness Extremities: Yes: WNL Edema: Yes Edema: LLE: Trace, RLE: Trace Peripheral Pulses: Left Radial: 2+, Right Radial: 2+ Integumentary: Yes: Venous Stasis Changes Wound/Incision: Yes: Dressing Dry and Intact (MARIA T drain in place) Neurological: Yes: Alert, Oriented, Weakness ...Motor Strength: LLE (4/5 muscle strength), RLE Psychiatric: Yes: Alert, Oriented Labs: CBC, BMP 11/21/18 14:45 11/21/18 05:30 INR, PTT INR 1.07 (0.83-1.09) 11/20/18 05:30 Problem List - Problems (1) DVT prophylaxis Assessment/Plan: SCDs hold SC heparin due to acute blood loss and need for continued PRBC infusion Code(s): [id number] - (2) S/P spinal surgery Assessment/Plan: pt not passing flatus -maintain NPO Maintain coles pain control with IV morphine Incentive spirometry pt completed 3 doses Ancef, now on doxycycline 100mg BID Code(s): Z98.890 - OTHER SPECIFIED POSTPROCEDURAL STATES (3) HTN (hypertension) Assessment/Plan: pt currently hypotensive, BP supported with levophed (wean at tolerated) hold anti-HTN Maintain IVF Code(s): I10 - ESSENTIAL (PRIMARY) HYPERTENSION (4) Hyperlipidemia Assessment/Plan: lipitor 10mg qhs Code(s): E78.5 - HYPERLIPIDEMIA, UNSPECIFIED Impression/Plan Impression/Plan: DISPO: Full code Visit type - Emergency Visit Emergency Visit: No - New Patient This patient is new to me today: Yes Date on this admission: 11/21/18 - Critical Care Critical Care patient: Yes Total Critical Care Time (in minutes): 60 Critical Care Statement: The care of this patient involved high complexity decision making to prevent further life threatening deterioration of the patient 's condition and/or to evaluate & treat vital organ system(s) failure or risk of failure. - Discharge Referral Referred to [facility] Med P.C.: No
--- NOTE | 2018-11-21 20:22 | PN ---
Progress Note (short form) - Note Progress Note: POD#2 ICU Comfortable minimal pain no leg pain Awake fully orientated Vitals All stable Abd Soft Gasseous distension no tenderness Wound dry Drain in situ Gomez in situ Neuro At baseline PLAN Attempt at OOB D/C drain tomorrow PT mobilize Start light diet tomorrow Pain mx D/C Gomez
[2018-11-21] MEDS: DOXYCYCLINE INJECTION 100 MG in DEXTROSE 5%-WATER 100 ML IVPB SCH (21:33)
[2018-11-21] MEDS: ATORVASTATIN CA 10 MG TABLET (FP) PO SCH (21:58)
[2018-11-22] MEDS ORDERED: ALBUTEROL SO4 0.083% IH SOL 2.5 MG/3 ML VIAL.NEB. NEB PRN (03:57)
--- NOTE | 2018-11-22 03:58 | PN ---
Progress Note (short form) - Note Progress Note: RN informed that patient is wheezing. Evaluated the patient. Patient has shortness of breath. Wheezing on auscultation. Abdomen is distended. BS + Patient reports that his abdomen has been distended since yesterday. Hasn't passed flatus. Plan: Stop IV fluids, reevaluate in the morning. Albuterol inhalation
[2018-11-22 06:04] LABS: BASO % 0.4 % (0-2.0); EOS % 1.3 % (0-4.5); HEMATOCRIT 23.2 % (35.4-49); HEMOGLOBIN 7.8 GM/dL (11.7-16.9); LYMPH % 9.7 % (8-40); MCH 28.4 pg (25.7-33.7); MCHC 33.4 g/dl (32.0-35.9); MEAN CELL VOLUME 84.8 fl (80-96); MEAN PLT VOLUME 7.7 fl (7.5-11.1); MONO % 10.3 % (3.8-10.2); NEUT % 78.3 % (42.8-82.8); PLATELET COUNT 112 K/MM3 (134-434); RBC 2.74 M/mm3 (4.00-5.60); RDW 15.2 % (11.9-15.9); WHITE BLOOD COUNT 9.3 K/mm3 (4.0-10.0)
[2018-11-22 06:37] LABS: ALBUMIN 2.3 g/dl (3.4-5.0); ALK PHOS 45 U/L (45-117); ANION GAP 9 MMOL/L (8-16); BILIRUBIN,TOTAL 0.6 mg/dL (0.2-1); BLOOD UREA NITROGEN 9 mg/dL (7-18); CALCIUM 7.8 mg/dL (8.5-10.1); CHLORIDE 102 mmol/L (98-107); CO2 24 mmol/L (21-32); CREATININE 0.5 mg/dL (0.55-1.3); GLUCOSE,RANDOM 73 mg/dL (74-106); MAGNESIUM 1.9 mg/dL (1.8-2.4); PHOSPHOROUS 2.5 mg/dL (2.5-4.9); SGOT/AST 63 U/L (15-37); SGPT/ALT 26 U/L (13-61); SODIUM 136 mmol/L (136-145); TOT PROT 4.9 g/dl (6.4-8.2)
--- NOTE | 2018-11-22 06:56 | PN ---
Physical Exam: SUBJECTIVE: Patient seen and examined, reported no passing of gas, no bowel movement, no blood per rectum. Pt admitted to abdominal distension, but denied abdominal pain, nausea, vomiting, diarrhea, shortness of breath, chest pain or any other symptoms. OBJECTIVE: Vital Signs Period Temp Pulse Resp BP Sys/Conde Pulse Ox Last 24 Hr 97.8 F-101.2 F 67-97 19-27 105-131/49-96 100-100 GENERAL: The patient is awake, alert, and fully oriented, in no acute distress. Sitting in a chair comfortably. HEAD: Normal with no signs of trauma. EYES: PERRL, extraocular movements intact, sclera anicteric, conjunctiva clear. No ptosis. ENT: Ears normal, nares patent, oropharynx clear without exudates, moist mucous membranes. NECK: Trachea midline, full range of motion, supple. LUNGS: Breath sounds equal, bibasilar crackles, no wheezes, no accessory muscle use. HEART: Regular rate and rhythm, S1, S2 without murmur, rub or gallop. ABDOMEN: Soft, nontender, distended, normoactive bowel sounds, no guarding, no rebound, no hepatosplenomegaly, no masses. EXTREMITIES: 2+ pulses, warm, well-perfused, no edema. NEUROLOGICAL: Cranial nerves II through XII grossly intact. Normal speech, gait not observed. PSYCH: Normal mood, normal affect. SKIN: Warm, dry, normal turgor, no rashes or lesions noted Laboratory Results - last 24 hr 11/19/18 11/21/18 11/21/18 06:15 05:30 05:30 WBC 10.5 H RBC 2.43 L Hgb 7.3 L Hct 20.8 L D MCV 85.6 MCH 29.9 MCHC 34.9 RDW 14.8 Plt Count 118 L D MPV 8.0 Absolute Neuts (auto) 8.0 Neutrophils % 75.9 Lymphocytes % 11.2 Monocytes % 12.1 H Eosinophils % 0.5 D Basophils % 0.3 Nucleated RBC % 0 Sodium 134 L Potassium 4.3 Chloride 104 Carbon Dioxide 25 Anion Gap 5 L BUN 16 Creatinine 0.7 Creat Clearance w eGFR 111.82 POC Glucometer Random Glucose 107 H Lactic Acid Calcium 7.7 L Phosphorus 2.2 L Magnesium 2.1 Total Bilirubin 0.4 AST 58 H ALT 24 Alkaline Phosphatase 39 L Troponin I 0.24 H Total Protein 4.8 L Albumin 2.4 L Blood Type A POSITIVE Antibody Screen Negative Crossmatch See Detail 11/21/18 11/21/18 11/21/18 05:30 11:10 14:45 WBC 9.5 RBC 3.05 L Hgb 8.6 L Hct 25.7 L D MCV 84.1 MCH 28.0 MCHC 33.3 RDW 15.1 Plt Count 114 L MPV 7.9 Absolute Neuts (auto) 7.2 Neutrophils % 76.3 Lymphocytes % 10.3 Monocytes % 12.3 H Eosinophils % 0.9 Basophils % 0.2 Nucleated RBC % 0 Sodium Potassium Chloride Carbon Dioxide Anion Gap BUN Creatinine Creat Clearance w eGFR POC Glucometer 110 Random Glucose Lactic Acid 1.0 Calcium Phosphorus Magnesium Total Bilirubin AST ALT Alkaline Phosphatase Troponin I Total Protein Albumin Blood Type Antibody Screen Crossmatch 11/22/18 11/22/18 05:30 05:30 WBC 9.3 RBC 2.74 L Hgb 7.8 L Hct 23.2 L MCV 84.8 MCH 28.4 MCHC 33.4 RDW 15.2 Plt Count 112 L MPV 7.7 Absolute Neuts (auto) 7.2 Neutrophils % 78.3 Lymphocytes % 9.7 Monocytes % 10.3 H Eosinophils % 1.3 Basophils % 0.4 Nucleated RBC % 0 Sodium 136 Potassium 4.0 Chloride 102 Carbon Dioxide 24 Anion Gap 9 BUN 9 Creatinine 0.5 L Creat Clearance w eGFR 164.87 POC Glucometer Random Glucose 73 L Lactic Acid Calcium 7.8 L Phosphorus 2.5 Magnesium 1.9 Total Bilirubin 0.6 AST 63 H ALT 26 Alkaline Phosphatase 45 Troponin I Total Protein 4.9 L Albumin 2.3 L Blood Type Antibody Screen Crossmatch Active Medications Generic Name Dose Route Start Last Admin Trade Name Freq PRN Reason Stop Dose Admin Albuterol Sulfate 1 amp 11/22/18 03:57 11/22/18 04:42 Ventolin 0.083% Nebulizer Soln - NEB 1 amp Q4H PRN Administration SHORT OF BREATH/WHEEZING Atorvastatin Calcium 10 mg 11/19/18 22:00 11/21/18 21:58 Lipitor - PO Not Given HS HARRY Norepinephrine Bitartrate 4, 500 mls @ 37.5 mls/hr 11/19/18 18:45 11/21/18 18 :45 000 mcg/ Dextrose IV Not Given TITR HARRY Protocol 5 MCG/MIN Doxycycline Hyclate 100 mg/ 100 mls @ 50 mls/hr 11/21/18 22:00 11/21/18 21:33 Dextrose IVPB 50 mls/hr BID HARRY Administration Morphine Sulfate 4 mg 11/19/18 17:30 11/21/18 21:28 Morphine Sulfate IVPUSH 4 mg Q4H PRN Administration PAIN LEVEL 6-10 Ondansetron HCl 4 mg 11/19/18 14:29 Zofran Injection IVPUSH Q6H PRN NAUSEA AND/OR VOMITING Tamsulosin HCl 0.4 mg 11/20/18 08:30 11/21/18 08:30 Flomax - PO Not Given DAILY@0830 [facility] Trimethoprim/Sulfamethoxazole 1 each 11/20/18 10:00 11/21/18 09:42 Bactrim Ds - PO Not Given DAILY [facility] ASSESSMENT/PLAN: 68 year old male with PMH 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 Pt lost 2300 cc blood during the procedure, was given 2UPRC and 7L of LR, 875 cell saver in surgery. Pt was hypotensive, requiring pressors. NEURO Post op day 2 (11/19/18) s/p T12, L1, L2, L3, L4, L5, S1 laminectomies, T11-L5 facetectomies/osteotomies, Simons-Villarreal osteotomies T12-L1, L1-L2, L3-L4, Posterior instrumentation T11-S1, Posterolateral arthrodesis T11-S1 #Multilevel spine surgery -Periop Cefazolin 2gm Q8H for 24 hrs -Zofran 4 mg IV Q6H -Morphine 4 mg Q4H PRN pain -Acetaminophen IV 1000 mg Q8H -Hold home ASA -NPO -OOB -Physical therapist -May DC drain today per neuro RESPIRATORY -Extubated 11/20/18 -Supplemental O2 as needed to maintain sats >92% -Albuterol 1 amp NEB Q4H PRN wheezing -Bibasilar crackles today concerning for fluid over load --IVF held --Lasix 40 mg IV one time dose ordered CARDIOVASCULAR #Anemia- H/H-7.3/20.8>>8.6/25.7>>7.8/23.2 --1UPRBC transfused 11/21 --No transfusion today, will transfuse if Hgb <7 --2UPRBC given in OR --7L LR given in OR --875 cell saver given in OR #Hypotension -Left IJ placed 11/19/18 -Levophed, titrate off as tolerated -Hold home losartan -Hold home metoprolol #HX HLD -Atorvastatin 10 mg PO HS on hold NPO GI #Abdominal distension -Possibly third spacing from massive fluid resuscitation -KUB ordered, pt refused for now, tech will come back when pt feels he can lay in bed -Ileus less likely -Continue to monitor ID -Home Bactrim 1 each PO daily- on hold -Doxycycline for chronic MRSA infection -Cefazolin post op given -dcd -Lactic acidosis resolved FEN -No IVF, concern for pulmonary edema -Monitor electrolytes -NPO until flatulence -DC coles after Lasix dose and increased urine output DISPO Med/Surg per Dr. Rao -I called his answering service to confirm Visit type - Emergency Visit Emergency Visit: Yes ED Registration Date: 11/19/18 Care time: The patient presented to the Emergency Department on the above date and was hospitalized for further evaluation of their emergent condition. - New Patient This patient is new to me today: No - Critical Care Critical Care patient: Yes Total Critical Care Time (in minutes): 35 Critical Care Statement: The care of this patient involved high complexity decision making to prevent further life threatening deterioration of the patient 's condition and/or to evaluate & treat vital organ system(s) failure or risk of failure. - Discharge Referral Referred to [facility] Med P.C.: No
[2018-11-22] MEDS: TAMSULOSIN HCL 0.4 MG CAP PO SCH (08:55)
[2018-11-22] MEDS ORDERED: SODIUM PHOSPHATE - 15 MM in DEXTROSE 5%-WATER - 250 ML IVPB ONE (09:00)
[2018-11-22] MEDS: morphine SULFATE 4 MG/ML VIAL IVPUSH PRN ×2 (09:00→19:48)
[2018-11-22] MEDS: SULFAMETHOXAZOLE/TRIMETHOPRIM 800MG/160MG D.S. TABLET PO SCH (09:11)
[2018-11-22] MEDS ORDERED: FUROSEMIDE 40 MG/4 ML INJECTABLE VIAL IVPUSH ONE (09:39)
[2018-11-22] MEDS: DOXYCYCLINE INJECTION 100 MG in DEXTROSE 5%-WATER 100 ML IVPB SCH ×2 (09:46→21:30)
--- NOTE | 2018-11-22 10:54 | PN ---
Progress Note (short form) - Note Progress Note: c/o back pain that is improved when sitting in the chair. denies CP, SOB, fever , chills, flatus or BM Current Medications Generic Name Dose Route Start Last Admin Trade Name Freq PRN Reason Stop Dose Admin Albuterol Sulfate 1 amp 11/22/18 03:57 11/22/18 04:42 Ventolin 0.083% Nebulizer Soln - NEB 1 amp Q4H PRN Administration SHORT OF BREATH/WHEEZING Atorvastatin Calcium 10 mg 11/19/18 22:00 11/21/18 21:58 Lipitor - PO Not Given HS HARRY Norepinephrine Bitartrate 4, 500 mls @ 37.5 mls/hr 11/19/18 18:45 11/21/18 18 :45 000 mcg/ Dextrose IV Not Given TITR HARRY Protocol 5 MCG/MIN Doxycycline Hyclate 100 mg/ 100 mls @ 50 mls/hr 11/21/18 22:00 11/22/18 09:46 Dextrose IVPB 50 mls/hr BID HARRY Administration Sodium Phosphate 15 mm/ 255 mls @ 62.5 mls/hr 11/22/18 09:00 11/22/18 09:46 Dextrose IVPB 11/22/18 13:04 62.5 mls/hr ONCE ONE Administration Morphine Sulfate 4 mg 11/19/18 17:30 11/22/18 09:00 Morphine Sulfate IVPUSH 4 mg Q4H PRN Administration PAIN LEVEL 6-10 Ondansetron HCl 4 mg 11/19/18 14:29 Zofran Injection IVPUSH Q6H PRN NAUSEA AND/OR VOMITING Tamsulosin HCl 0.4 mg 11/20/18 08:30 11/22/18 08:55 Flomax - PO Not Given DAILY@0830 [facility] Trimethoprim/Sulfamethoxazole 1 each 11/20/18 10:00 11/22/18 09:11 Bactrim Ds - PO Not Given DAILY [facility] Last Vital Signs Temp Pulse Resp BP Pulse Ox 97.6 F 75 21 H 110/65 100 11/22/18 10:00 11/22/18 10:00 11/22/18 10:00 11/22/18 10:00 11/22/18 08:00 Intake & Output 11/19/18 11/20/18 11/21/18 11/22/18 23:59 23:59 23:59 23:59 Intake Total 1123731 8076 4714 1450 Output Total 1021 1660 2650 735 Balance 7673 5648 2121 715 Weight 193 lb 202 lb 206 lb 11.2 oz General NAD CV S1 S2 RRR Lungs CTA B/L no wheezing/rales/rhonchi ABdomen soft. NT +distended no BS appreciatd Extremities no pedal edema CBCD WBC 9.3 K/mm3 (4.0-10.0) 11/22/18 05:30 RBC 2.74 M/mm3 (4.00-5.60) L 11/22/18 05:30 Hgb 7.8 GM/dL (11.7-16.9) L 11/22/18 05:30 Hct 23.2 % (35.4-49) L 11/22/18 05:30 MCV 84.8 fl (80-96) 11/22/18 05:30 MCHC 33.4 g/dl (32.0-35.9) 11/22/18 05:30 RDW 15.2 % (11.9-15.9) 11/22/18 05:30 Plt Count 112 K/MM3 (134-434) L 11/22/18 05:30 MPV 7.7 fl (7.5-11.1) 11/22/18 05:30 CMP Sodium 136 mmol/L (136-145) 11/22/18 05:30 Potassium 4.0 mmol/L (3.5-5.1) 11/22/18 05:30 Chloride 102 mmol/L (98-107) 11/22/18 05:30 Carbon Dioxide 24 mmol/L (21-32) 11/22/18 05:30 Anion Gap 9 MMOL/L (8-16) 11/22/18 05:30 BUN 9 mg/dL (7-18) 11/22/18 05:30 Creatinine 0.5 mg/dL (0.55-1.3) L 11/22/18 05:30 Creat Clearance w eGFR 164.87 (>60) 11/22/18 05:30 Calcium 7.8 mg/dL (8.5-10.1) L 11/22/18 05:30 Total Bilirubin 0.6 mg/dL (0.2-1) 11/22/18 05:30 AST 63 U/L (15-37) H 11/22/18 05:30 ALT 26 U/L (13-61) 11/22/18 05:30 Alkaline Phosphatase 45 U/L (45-117) 11/22/18 05:30 Total Protein 4.9 g/dl (6.4-8.2) L 11/22/18 05:30 Albumin 2.3 g/dl (3.4-5.0) L 11/22/18 05:30 Assessment and plan 68yo M with pMH HTN and dyslipidemia and lumbar stenosis who presented for schedule surgery of. Course was complicated with large blood loss and hypotension intra-operatively and central line was placed and started on pressors 1. Lumbar Stenosis with radiculopathy and claudication- s/p T12, L1, L2, L3, L4 , L5, S1 laminectomies; T11-L5 facetectomies/osteotomies; Simons-Villarreal osteotomies T12-L1, L1-L2, L3-L4; posterior instrumentation T11-S1; posterolateral arthrodesis T11-S1; bone autograft; bone allograft; bone marrow aspiration; stem cell autograft; intra-operative neural monitoring; intra- operative biplanar fluoroscopy; durotomy repair; complex wound closure (30cm) on 11/19. has drain in place. has not passed flatus. NPO till flatus, Gomez till ambulating. pain control. further recommendations per ortho 2. ACute blood loss anemia-2300 cc blood loss during surgery, cell saver and volume resuscitation initiated clark-operatively. s/p 3 unit PRBC this hospital stay. slight downtrend this AM. will repeat this afternoon, if stable will hold blood products. normal transfusion thresholds 3. Hypotension- due to large volume loss. was on pressors. turned off yesterday afternoon. BP stable. hold oral antihypertensives. re-start as needed 4. Tropinemia- demand ischemia due to hypoperfusion.flat trend of troponins. Echo was poor study due to poor acoustic windows. no further testing at this time 5. dyslipidemia- resume lipitor once taking po 6. BPH- resume once taking po 7. DVT ppx- SCD. hold pharmacologic anticoag in setting of recent surgery 8. MICU monitoring Visit type - Emergency Visit Emergency Visit: No - New Patient This patient is new to me today: Yes Date on this admission: 11/22/18 - Critical Care Critical Care patient: Yes Total Critical Care Time (in minutes): 38 Critical Care Statement: The care of this patient involved high complexity decision making to prevent further life threatening deterioration of the patient 's condition and/or to evaluate & treat vital organ system(s) failure or risk of failure. - Discharge Referral Referred to [facility] Med P.C.: No
--- NOTE | 2018-11-22 12:10 | PN ---
Teaching Attending Note Name of Resident: Any Muller ATTENDING PHYSICIAN STATEMENT I saw and evaluated the patient. I reviewed the resident's note and discussed the case with the resident. I agree with the resident's findings and plan as documented. SUBJECTIVE: Patient seen and examined in the ICU. Remains extubated. Awake and alert. (+) post-surgical pain. Denies CP or SOB. Off pressors. Intake & Output 11/19/18 11/20/18 11/21/18 11/22/18 23:59 23:59 23:59 23:59 Intake Total 97332 5144 4771 1450 Output Total 2425 1660 2650 735 Balance 7670 3484 2121 715 Weight 193 lb 202 lb 206 lb 11.2 oz Last Vital Signs Temp Pulse Resp BP Pulse Ox 97.6 F 75 21 H 110/65 100 11/22/18 10:00 11/22/18 10:00 11/22/18 10:00 11/22/18 10:00 11/22/18 08:00 Active Medications Albuterol Sulfate (Ventolin 0.083% Nebulizer Soln -) 1 amp NEB Q4H PRN PRN Reason: SHORT OF BREATH/WHEEZING Last Admin: 11/22/18 04:42 Dose: 1 amp Atorvastatin Calcium (Lipitor -) 10 mg PO HS [facility] Last Admin: 11/21/18 21:58 Dose: Not Given Norepinephrine Bitartrate 4, (000 mcg/ Dextrose) 500 mls @ 37.5 mls/hr IV TITR [facility]; Protocol Last Admin: 11/21/18 18:45 Dose: Not Given Doxycycline Hyclate 100 mg/ (Dextrose) 100 mls @ 50 mls/hr IVPB BID [facility] Last Admin: 11/22/18 09:46 Dose: 50 mls/hr Sodium Phosphate 15 mm/ (Dextrose) 255 mls @ 62.5 mls/hr IVPB ONCE ONE Stop: 11/22/18 13:04 Last Admin: 11/22/18 09:46 Dose: 62.5 mls/hr Morphine Sulfate (Morphine Sulfate) 4 mg IVPUSH Q4H PRN PRN Reason: PAIN LEVEL 6-10 Last Admin: 11/22/18 09:00 Dose: 4 mg Ondansetron HCl (Zofran Injection) 4 mg IVPUSH Q6H PRN PRN Reason: NAUSEA AND/OR VOMITING Tamsulosin HCl (Flomax -) 0.4 mg PO DAILY@0830 [facility] Last Admin: 11/22/18 08:55 Dose: Not Given Trimethoprim/Sulfamethoxazole (Bactrim Ds -) 1 each PO DAILY [facility] Last Admin: 11/22/18 09:11 Dose: Not Given OBJECTIVE: Gen: Awake and alert, NAD at rest Heart: RRR Lung: decreased breath sounds at the bases Abd: distended, nontender Ext: no edema Laboratory Results - last 24 hr 11/19/18 11/21/18 11/22/18 06:15 14:45 05:30 WBC 9.5 9.3 RBC 3.05 L 2.74 L Hgb 8.6 L 7.8 L Hct 25.7 L D 23.2 L MCV 84.1 84.8 MCH 28.0 28.4 MCHC 33.3 33.4 RDW 15.1 15.2 Plt Count 114 L 112 L MPV 7.9 7.7 Absolute Neuts (auto) 7.2 7.2 Neutrophils % 76.3 78.3 Lymphocytes % 10.3 9.7 Monocytes % 12.3 H 10.3 H Eosinophils % 0.9 1.3 Basophils % 0.2 0.4 Nucleated RBC % 0 0 Sodium Potassium Chloride Carbon Dioxide Anion Gap BUN Creatinine Creat Clearance w eGFR Random Glucose Calcium Phosphorus Magnesium Total Bilirubin AST ALT Alkaline Phosphatase Total Protein Albumin Blood Type Antibody Screen Crossmatch See Detail 11/22/18 11/22/18 05:30 07:50 WBC RBC Hgb Hct MCV MCH MCHC RDW Plt Count MPV Absolute Neuts (auto) Neutrophils % Lymphocytes % Monocytes % Eosinophils % Basophils % Nucleated RBC % Sodium 136 Potassium 4.0 Chloride 102 Carbon Dioxide 24 Anion Gap 9 BUN 9 Creatinine 0.5 L Creat Clearance w eGFR 164.87 Random Glucose 73 L Calcium 7.8 L Phosphorus 2.5 Magnesium 1.9 Total Bilirubin 0.6 AST 63 H ALT 26 Alkaline Phosphatase 45 Total Protein 4.9 L Albumin 2.3 L Blood Type A POSITIVE Antibody Screen Negative Crossmatch See Detail ASSESSMENT AND PLAN: Lumbar Stenosis with radiculopathy and claudication s/p T12-S1 Laminectomies/Posterior Instrumentation/Arthrodesis/Durotomy Repair Acute Blood Loss Anemia Hypovolemic Shock Lactic Acidosis +Troponins likely Demand Ischemia Thrombocytopenia s/p Acute Respiratory Failure Hypercholesterolemia - monitor H/H - Normal transfusion thresholds: Hgg less than 7.0 - Monitor off IVF - Trial of lasix x 1 dose - pain control - incentive spirometry - PO when flatus - D/C sanket later this afternoon - DVT prophylaxis - Floor when OK with surgery Dr Beebe
--- NOTE | 2018-11-22 12:43 | PN ---
Progress Note, Physician History of Present Illness: OOB to chair, c/o post-op pain. - Current Medication List Current Medications: Active Medications Albuterol Sulfate (Ventolin 0.083% Nebulizer Soln -) 1 amp NEB Q4H PRN PRN Reason: SHORT OF BREATH/WHEEZING Last Admin: 11/22/18 04:42 Dose: 1 amp Atorvastatin Calcium (Lipitor -) 10 mg PO HS [facility] Last Admin: 11/21/18 21:58 Dose: Not Given Doxycycline Hyclate 100 mg/ (Dextrose) 100 mls @ 50 mls/hr IVPB BID [facility] Last Admin: 11/22/18 09:46 Dose: 50 mls/hr Sodium Phosphate 15 mm/ (Dextrose) 255 mls @ 62.5 mls/hr IVPB ONCE ONE Stop: 11/22/18 13:04 Last Admin: 11/22/18 09:46 Dose: 62.5 mls/hr Morphine Sulfate (Morphine Sulfate) 4 mg IVPUSH Q4H PRN PRN Reason: PAIN LEVEL 6-10 Last Admin: 11/22/18 09:00 Dose: 4 mg Ondansetron HCl (Zofran Injection) 4 mg IVPUSH Q6H PRN PRN Reason: NAUSEA AND/OR VOMITING Tamsulosin HCl (Flomax -) 0.4 mg PO DAILY@0830 [facility] Last Admin: 11/22/18 08:55 Dose: Not Given Trimethoprim/Sulfamethoxazole (Bactrim Ds -) 1 each PO DAILY [facility] Last Admin: 11/22/18 09:11 Dose: Not Given - Objective Vital Signs: Vital Signs Temperature 97.6 F 11/22/18 10:00 Pulse Rate 76 11/22/18 12:00 Respiratory Rate 21 H 11/22/18 12:00 Blood Pressure 123/75 11/22/18 12:00 O2 Sat by Pulse Oximetry (%) 100 11/22/18 08:00 Constitutional: Yes: No Distress, Calm Neck: Yes: Supple Cardiovascular: Yes: Regular Rate and Rhythm Respiratory: Yes: Regular, Diminished, On Nasal O2 Gastrointestinal: Yes: Normal Bowel Sounds, Soft Musculoskeletal: Yes: Other (Drain in situ) Edema: No Labs: CBC, BMP 11/22/18 05:30 11/22/18 05:30 INR, PTT INR 1.07 (0.83-1.09) 11/20/18 05:30 Problem List - Problems (1) HTN (hypertension) Code(s): I10 - ESSENTIAL (PRIMARY) HYPERTENSION Qualifiers: Hypertension type: essential hypertension Qualified Code(s): I10 - Essential (primary) hypertension (2) Hyperlipidemia Code(s): E78.5 - HYPERLIPIDEMIA, UNSPECIFIED Qualifiers: Hyperlipidemia type: pure hypercholesterolemia Qualified Code(s): E78.00 - Pure hypercholesterolemia, unspecified; E78.0 - Pure hypercholesterolemia (3) Hypotension after procedure Code(s): I95.81 - POSTPROCEDURAL HYPOTENSION (4) S/P spinal surgery Code(s): Z98.890 - OTHER SPECIFIED POSTPROCEDURAL STATES Assessment/Plan 11/21/2018 Normal LV size and fxn, poor acoustic windows preclude valve eval 1. Lumbar Stenosis with radiculopathy and claudication 2. s/p T12-S1 Laminectomies/Posterior Instrumentation/Arthrodesis/Durotomy Repair 3. Acute Blood Loss Anemia 4. Hypovolemic Shock 6. Lactic Acidosis 7. +Troponins likely Demand Ischemia 8. Thrombocytopenia 9. s/p Acute Respiratory Failure 10. Hypercholesterolemia P: 1. Monitor H/H and transfuse as needed 2. IV diuresis as needed 3. Weaned off pressors 4. pain control 5. incentive spirometry 6. PO when flatus 7. d/c coles and drain today 8. DVT prophylaxis 9. Transfer to floor
[2018-11-22] MEDS ORDERED: ONDANSETRON 4 MG/2 ML VIAL IVPUSH PRN (17:36)
[2018-11-22] MEDS: ATORVASTATIN CA 10 MG TABLET (FP) PO SCH (21:30)
[2018-11-23] MEDS: morphine SULFATE 4 MG/ML VIAL IVPUSH PRN ×4 (03:02→21:52)
[2018-11-23 08:07] LABS: BASO % 0.1 % (0-2.0); EOS % 1.3 % (0-4.5); HEMATOCRIT 25.7 % (35.4-49); HEMOGLOBIN 8.6 GM/dL (11.7-16.9); LYMPH % 7.7 % (8-40); MCH 28.5 pg (25.7-33.7); MCHC 33.3 g/dl (32.0-35.9); MEAN CELL VOLUME 85.6 fl (80-96); MEAN PLT VOLUME 7.9 fl (7.5-11.1); MONO % 8.5 % (3.8-10.2); NEUT % 82.4 % (42.8-82.8); PLATELET COUNT 164 K/MM3 (134-434); RBC 3.01 M/mm3 (4.00-5.60)
[2018-11-23 08:32] LABS: ALBUMIN 2.4 g/dl (3.4-5.0); ALK PHOS 51 U/L (45-117); ANION GAP 12 MMOL/L (8-16); BILIRUBIN,TOTAL 0.6 mg/dL (0.2-1); BLOOD UREA NITROGEN 11 mg/dL (7-18); CALCIUM 7.8 mg/dL (8.5-10.1); CHLORIDE 100 mmol/L (98-107); CO2 24 mmol/L (21-32); CREATININE 0.5 mg/dL (0.55-1.3); GLUCOSE,RANDOM 79 mg/dL (74-106); PHOSPHOROUS 3.2 mg/dL (2.5-4.9); POTASSIUM 3.6 mmol/L (3.5-5.1); SGOT/AST 52 U/L (15-37); SGPT/ALT 28 U/L (13-61); SODIUM 135 mmol/L (136-145); TOT PROT 5.4 g/dl (6.4-8.2)
--- NOTE | 2018-11-23 09:26 | PN ---
Progress Note, Physician Chief Complaint: C/O baclk pain and epigastric discomfort History of Present Illness: 68yo M with pMH HTN and dyslipidemia and lumbar stenosis who presented for schedule surgery of. Course was complicated with large blood loss and hypotension intra-operatively and central line was placed and started on pressors improved off pressors transfer to floor now. - Current Medication List Current Medications: Active Medications Albuterol Sulfate (Ventolin 0.083% Nebulizer Soln -) 1 amp NEB Q4H PRN PRN Reason: SHORT OF BREATH/WHEEZING Atorvastatin Calcium (Lipitor -) 10 mg PO HS [facility] Last Admin: 11/22/18 21:30 Dose: 10 mg Doxycycline Hyclate 100 mg/ (Dextrose) 100 mls @ 50 mls/hr IVPB BID [facility] Last Admin: 11/22/18 21:30 Dose: 50 mls/hr Morphine Sulfate (Morphine Sulfate) 4 mg IVPUSH Q4H PRN PRN Reason: PAIN LEVEL 6-10 Last Admin: 11/23/18 03:02 Dose: 4 mg Ondansetron HCl (Zofran Injection) 4 mg IVPUSH Q6H PRN PRN Reason: NAUSEA AND/OR VOMITING Tamsulosin HCl (Flomax -) 0.4 mg PO DAILY@0830 [facility] Trimethoprim/Sulfamethoxazole (Bactrim Ds -) 1 each PO DAILY [facility] - Objective Vital Signs: Vital Signs Temperature 98.0 F 11/23/18 06:00 Pulse Rate 82 11/23/18 06:00 Respiratory Rate 20 11/23/18 06:00 Blood Pressure 135/68 11/23/18 06:00 O2 Sat by Pulse Oximetry (%) 100 11/22/18 21:00 Elderly man not in distress, able HEENT: Mm moist, mild anemia NECK: No JVD No Bruit CHEST: CTA B/L CV S1 S2 RRR ABD: Distention non tender Bs +, passing flatus EXT: Trace edema feet, mild scrotal and penile edema s/p Foleys Catheter SPINE: S/P Spinal surgery day 3rd. Labs: CBC, BMP 11/23/18 06:30 11/23/18 06:30 INR, PTT INR 1.07 (0.83-1.09) 11/20/18 05:30 Problem List - Problems (1) S/P spinal surgery Assessment/Plan: Lumbar Stenosis with radiculopathy and claudication- s/p T12, L1, L2, L3, L4, L5 , S1 laminectomies; T11-L5 facetectomies/osteotomies; Simons-Villarreal osteotomies T12-L1, L1-L2, L3-L4; posterior instrumentation T11-S1; posterolateral arthrodesis T11-S1; bone autograft; bone allograft; bone marrow aspiration; stem cell autograft; intra-operative neural monitoring; intra- operative biplanar fluoroscopy; durotomy repair; complex wound closure (30cm) on 11/19. has drain in place. has not passed flatus. NPO till flatus, Gomez till ambulating. pain control. further recommendations per ortho Code(s): Z98.890 - OTHER SPECIFIED POSTPROCEDURAL STATES (2) HTN (hypertension) Assessment/Plan: on hold of BP meds due to intraoprtaive Hypotension- due to large volume loss. was on pressors. turned off yesterday afternoon. BP stable. hold oral antihypertensives. re-start as needed Code(s): I10 - ESSENTIAL (PRIMARY) HYPERTENSION Qualifiers: Hypertension type: essential hypertension Qualified Code(s): I10 - Essential (primary) hypertension (3) Hypotension after procedure Assessment/Plan: now normotensive after volume resuccitation Code(s): I95.81 - POSTPROCEDURAL HYPOTENSION (4) Hyperlipidemia Assessment/Plan: resume lipitor Code(s): E78.5 - HYPERLIPIDEMIA, UNSPECIFIED Qualifiers: Hyperlipidemia type: pure hypercholesterolemia Qualified Code(s): E78.00 - Pure hypercholesterolemia, unspecified; E78.0 - Pure hypercholesterolemia (5) Acute blood loss anemia Assessment/Plan: Acute blood loss anemia-2300 cc blood loss during surgery, cell saver and volume resuscitation initiated clark-operatively. s/p 3 unit PRBC this hospital stay. Code(s): D62 - ACUTE POSTHEMORRHAGIC ANEMIA (6) Elevated troponin I level Assessment/Plan: Demand ischemia due to hypoperfusion.flat trend of troponins. Echo was poor study due to poor acoustic windows. no further testing at this time Code(s): R74.8 - ABNORMAL LEVELS OF OTHER SERUM ENZYMES (7) BPH (benign prostatic hyperplasia) Assessment/Plan: 6. BPH resume flomax. Code(s): N40.0 - BENIGN PROSTATIC HYPERPLASIA WITHOUT LOWER URINRY TRACT SYMP (8) Abdominal distension Assessment/Plan: Post OP passing flatus, KUB shows ileus , patient feels it getting softer will consider, surgery consult, CT abd if worsening pain or distention, at present distention +, non tender BS + will start clear liquid Code(s): R14.0 - ABDOMINAL DISTENSION (GASEOUS)
[2018-11-23] MEDS ORDERED: PT OWN MED DRAWER 7, Y5N ONE (09:39)
[2018-11-23] MEDS: SULFAMETHOXAZOLE/TRIMETHOPRIM 800MG/160MG D.S. TABLET PO SCH (10:03)
[2018-11-23] MEDS: DOXYCYCLINE INJECTION 100 MG in DEXTROSE 5%-WATER 100 ML IVPB SCH ×2 (10:03→22:55)
[2018-11-23] MEDS: TAMSULOSIN HCL 0.4 MG CAP PO SCH (10:03)
--- NOTE | 2018-11-23 11:18 | PN ---
Progress Note, Physician History of Present Illness: Resting comfortably, post-op pain well-controlled. - Current Medication List Current Medications: Active Medications Albuterol Sulfate (Ventolin 0.083% Nebulizer Soln -) 1 amp NEB Q4H PRN PRN Reason: SHORT OF BREATH/WHEEZING Atorvastatin Calcium (Lipitor -) 10 mg PO HS [facility] Last Admin: 11/22/18 21:30 Dose: 10 mg Doxycycline Hyclate 100 mg/ (Dextrose) 100 mls @ 50 mls/hr IVPB BID [facility] Last Admin: 11/23/18 10:03 Dose: 50 mls/hr Morphine Sulfate (Morphine Sulfate) 4 mg IVPUSH Q4H PRN PRN Reason: PAIN LEVEL 6-10 Last Admin: 11/23/18 10:04 Dose: 4 mg Ondansetron HCl (Zofran Injection) 4 mg IVPUSH Q6H PRN PRN Reason: NAUSEA AND/OR VOMITING Tamsulosin HCl (Flomax -) 0.4 mg PO DAILY@0830 [facility] Last Admin: 11/23/18 10:03 Dose: 0.4 mg Trimethoprim/Sulfamethoxazole (Bactrim Ds -) 1 each PO DAILY [facility] Last Admin: 11/23/18 10:03 Dose: 1 each - Objective Vital Signs: Vital Signs Temperature 98.0 F 11/23/18 06:00 Pulse Rate 82 11/23/18 06:00 Respiratory Rate 20 11/23/18 06:00 Blood Pressure 135/68 11/23/18 06:00 O2 Sat by Pulse Oximetry (%) 100 11/22/18 21:00 Constitutional: Yes: No Distress, Calm Neck: Yes: Supple Cardiovascular: Yes: Regular Rate and Rhythm Respiratory: Yes: Regular, Diminished Gastrointestinal: Yes: Normal Bowel Sounds, Soft Edema: No Labs: CBC, BMP 11/23/18 06:30 11/23/18 06:30 INR, PTT INR 1.07 (0.83-1.09) 11/20/18 05:30 - ....Imaging Chest X-ray: Report Reviewed (LLL ATX) X-ray: Report Reviewed (Possible ileus) Problem List - Problems (1) HTN (hypertension) Code(s): I10 - ESSENTIAL (PRIMARY) HYPERTENSION Qualifiers: Hypertension type: essential hypertension Qualified Code(s): I10 - Essential (primary) hypertension (2) Hyperlipidemia Code(s): E78.5 - HYPERLIPIDEMIA, UNSPECIFIED Qualifiers: Hyperlipidemia type: pure hypercholesterolemia Qualified Code(s): E78.00 - Pure hypercholesterolemia, unspecified; E78.0 - Pure hypercholesterolemia (3) Hypotension after procedure Code(s): I95.81 - POSTPROCEDURAL HYPOTENSION (4) S/P spinal surgery Code(s): Z98.890 - OTHER SPECIFIED POSTPROCEDURAL STATES Assessment/Plan 11/21/2018 Normal LV size and fxn, poor acoustic windows preclude valve eval 1. Lumbar Stenosis with radiculopathy and claudication 2. s/p T12-S1 Laminectomies/Posterior Instrumentation/Arthrodesis/Durotomy Repair 3. Acute Blood Loss Anemia 4. Post Hypovolemic Shock 6. Lactic Acidosis 7. +Troponins likely Demand Ischemia 8. Thrombocytopenia 9. s/p Acute Respiratory Failure 10. Hypercholesterolemia P: 1. Monitor H/H and transfuse as needed 2. IV diuresis as needed 3. Pain control 4. Incentive spirometry 5. Clear liquid diet as tolerated 6. DVT prophylaxis
[2018-11-23] MEDS: ALBUTEROL SO4 0.083% IH SOL 2.5 MG/3 ML VIAL.NEB. NEB PRN (20:44)
[2018-11-23] MEDS: ATORVASTATIN CA 10 MG TABLET (FP) PO SCH (21:52)
[2018-11-24] MEDS: morphine SULFATE 4 MG/ML VIAL IVPUSH PRN ×2 (02:49→08:51)
[2018-11-24 07:30] LABS: BASO % 0.3 % (0-2.0); EOS % 2.9 % (0-4.5); HEMATOCRIT 22.6 % (35.4-49); HEMOGLOBIN 7.7 GM/dL (11.7-16.9); LYMPH % 11.6 % (8-40); MCH 29.1 pg (25.7-33.7); MCHC 34.2 g/dl (32.0-35.9); MEAN CELL VOLUME 85.2 fl (80-96); MEAN PLT VOLUME 7.7 fl (7.5-11.1); MONO % 13.1 % (3.8-10.2); NEUT % 72.1 % (42.8-82.8); PLATELET COUNT 201 K/MM3 (134-434); RBC 2.65 M/mm3 (4.00-5.60); WHITE BLOOD COUNT 7.3 K/mm3 (4.0-10.0)
[2018-11-24 08:16] LABS: ANION GAP 7 MMOL/L (8-16); BLOOD UREA NITROGEN 11 mg/dL (7-18); CALCIUM 7.6 mg/dL (8.5-10.1); CHLORIDE 98 mmol/L (98-107); CO2 27 mmol/L (21-32); CREATININE 0.5 mg/dL (0.55-1.3); GLUCOSE,RANDOM 101 mg/dL (74-106); POTASSIUM 3.4 mmol/L (3.5-5.1); SODIUM 132 mmol/L (136-145)
[2018-11-24] MEDS ORDERED: PT OWN MED DRAWER 7, Y5N ONE (08:33)
[2018-11-24] MEDS: TAMSULOSIN HCL 0.4 MG CAP PO SCH (08:52)
[2018-11-24] MEDS: SULFAMETHOXAZOLE/TRIMETHOPRIM 800MG/160MG D.S. TABLET PO SCH (09:24)
[2018-11-24] MEDS: DOXYCYCLINE INJECTION 100 MG in DEXTROSE 5%-WATER 100 ML IVPB SCH ×2 (09:24→21:19)
--- NOTE | 2018-11-24 09:58 | PN ---
Progress Note (short form) - Note Progress Note: Awake fully orientated Did get out of bed yesterday. Did pass flatus No complains of incisional pain or leg pain Vitals All stable Abd Distended gaseous no tenderness rebound or guarding Neuro At baseline Wound Sealed dressing some dry drainage drain removed PLAN PT mobilize D/C planning
--- NOTE | 2018-11-24 12:59 | PN ---
Progress Note, Physician History of Present Illness: Resting comfortably, post-op pain well-controlled, drain d/kunal. Ambulated. - Current Medication List Current Medications: Active Medications Albuterol Sulfate (Ventolin 0.083% Nebulizer Soln -) 1 amp NEB Q4H PRN PRN Reason: SHORT OF BREATH/WHEEZING Last Admin: 11/23/18 20:44 Dose: 1 amp Atorvastatin Calcium (Lipitor -) 10 mg PO HS [facility] Last Admin: 11/23/18 21:52 Dose: 10 mg Doxycycline Hyclate 100 mg/ (Dextrose) 100 mls @ 50 mls/hr IVPB BID [facility] Last Admin: 11/24/18 09:24 Dose: 50 mls/hr Morphine Sulfate (Morphine Sulfate) 4 mg IVPUSH Q4H PRN PRN Reason: PAIN LEVEL 6-10 Last Admin: 11/24/18 08:51 Dose: 4 mg Ondansetron HCl (Zofran Injection) 4 mg IVPUSH Q6H PRN PRN Reason: NAUSEA AND/OR VOMITING Tamsulosin HCl (Flomax -) 0.4 mg PO DAILY@0830 [facility] Last Admin: 11/24/18 08:52 Dose: 0.4 mg Trimethoprim/Sulfamethoxazole (Bactrim Ds -) 1 each PO DAILY [facility] Last Admin: 11/24/18 09:24 Dose: 1 each - Objective Vital Signs: Vital Signs Temperature 98.2 F 11/24/18 06:00 Pulse Rate 46 L 11/24/18 06:00 Respiratory Rate 20 11/24/18 06:00 Blood Pressure 122/72 11/24/18 06:00 O2 Sat by Pulse Oximetry (%) 94 L 11/24/18 09:00 Constitutional: Yes: No Distress, Calm Neck: Yes: Supple Cardiovascular: Yes: Regular Rate and Rhythm Respiratory: Yes: Regular, CTA Bilaterally Gastrointestinal: Yes: Normal Bowel Sounds, Soft, Abdomen, Obese Edema: No Labs: CBC, BMP 11/24/18 06:30 11/24/18 06:30 INR, PTT INR 1.07 (0.83-1.09) 11/20/18 05:30 Assessment/Plan Problem List - Problems (1) HTN (hypertension) Code(s): I10 - ESSENTIAL (PRIMARY) HYPERTENSION Qualifiers: Hypertension type: essential hypertension Qualified Code(s): I10 - Essential (primary) hypertension (2) Hyperlipidemia Code(s): E78.5 - HYPERLIPIDEMIA, UNSPECIFIED Qualifiers: Hyperlipidemia type: pure hypercholesterolemia Qualified Code(s): E78.00 - Pure hypercholesterolemia, unspecified; E78.0 - Pure hypercholesterolemia (3) Hypotension after procedure Code(s): I95.81 - POSTPROCEDURAL HYPOTENSION (4) S/P spinal surgery Code(s): Z98.890 - OTHER SPECIFIED POSTPROCEDURAL STATES 11/21/2018 Normal LV size and fxn, poor acoustic windows preclude valve eval 1. Lumbar Stenosis with radiculopathy and claudication 2. s/p T12-S1 Laminectomies/Posterior Instrumentation/Arthrodesis/Durotomy Repair 3. Acute Blood Loss Anemia 4. Hypovolemic Shock 6. Lactic Acidosis 7. +Troponins likely Demand Ischemia 8. Thrombocytopenia 9. s/p Acute Respiratory Failure 10. Hypercholesterolemia P: 1. Monitor H/H and transfuse as needed 2. Pain control 3. Ambulate, PT as tolerated 4. DVT prophylaxis
--- NOTE | 2018-11-24 13:15 | PN ---
Progress Note, Physician - Current Medication List Current Medications: Active Medications Albuterol Sulfate (Ventolin 0.083% Nebulizer Soln -) 1 amp NEB Q4H PRN PRN Reason: SHORT OF BREATH/WHEEZING Last Admin: 11/23/18 20:44 Dose: 1 amp Atorvastatin Calcium (Lipitor -) 10 mg PO HS [facility] Last Admin: 11/23/18 21:52 Dose: 10 mg Doxycycline Hyclate 100 mg/ (Dextrose) 100 mls @ 50 mls/hr IVPB BID [facility] Last Admin: 11/24/18 09:24 Dose: 50 mls/hr Morphine Sulfate (Morphine Sulfate) 4 mg IVPUSH Q4H PRN PRN Reason: PAIN LEVEL 6-10 Last Admin: 11/24/18 08:51 Dose: 4 mg Ondansetron HCl (Zofran Injection) 4 mg IVPUSH Q6H PRN PRN Reason: NAUSEA AND/OR VOMITING Oxycodone/Acetaminophen (Percocet 5/325 -) 1 combo PO Q6H [facility] Tamsulosin HCl (Flomax -) 0.4 mg PO DAILY@0830 [facility] Last Admin: 11/24/18 08:52 Dose: 0.4 mg Trimethoprim/Sulfamethoxazole (Bactrim Ds -) 1 each PO DAILY [facility] Last Admin: 11/24/18 09:24 Dose: 1 each - Objective Vital Signs: Vital Signs Temperature 98.2 F 11/24/18 06:00 Pulse Rate 46 L 11/24/18 06:00 Respiratory Rate 20 11/24/18 06:00 Blood Pressure 122/72 11/24/18 06:00 O2 Sat by Pulse Oximetry (%) 94 L 11/24/18 09:00 Constitutional: Yes: Well Nourished, Mild Distress, Obese Eyes: Yes: WNL, Conjunctiva Clear, EOM Intact HENT: Yes: WNL, Atraumatic, Normocephalic Neck: Yes: WNL, Supple, Trachea Midline Cardiovascular: Yes: WNL, Regular Rate and Rhythm Respiratory: Yes: WNL, Regular, CTA Bilaterally Gastrointestinal: Yes: WNL, Normal Bowel Sounds, Soft Musculoskeletal: Yes: WNL Extremities: Yes: WNL Integumentary: Yes: WNL Neurological: Yes: WNL, Alert, Oriented ...Motor Strength: WNL Psychiatric: Yes: WNL, Alert, Oriented Labs: CBC, BMP 11/24/18 06:30 11/24/18 06:30 INR, PTT INR 1.07 (0.83-1.09) 11/20/18 05:30 Assessment/Plan S/P spinal surgery Lumbar Stenosis with radiculopathy and claudication- s/p T12, L1, L2, L3, L4 , L5, S1 laminectomies; T11-L5 facetectomies/osteotomies; Simons-Villarreal osteotomies T12-L1, L1-L2, L3-L4; posterior instrumentation T11- S1; posterolateral arthrodesi T11-S1; bone autograft; bone allograft; bone marrow aspiration; stem cell autograft; intra-operative neural monitoring; intra-operative biplanar fluoroscopy; durotomy repair; complex wound closure ( 30cm) on 11/19. has drain in place. has not passed flatus. NPO till flatus, Gomez till ambulating. pain control. further recommendations per ortho - morphine 4mg IVP q4hr prn - oxydone 5/325mg acetaminophen q6hrs HTN (hypertension) on hold of BP meds due to intraoprtaive Hypotension- due to large volume loss. BP stable. hold oral antihypertensives. re-start as needed Hypotension after procedure - resolved Hyperlipidemia resume atorvastatin Acute blood loss anemia Acute blood loss anemia-2300 cc blood loss during surgery, cell saver and volume resuscitation initiated clark-operatively. s/p 3 unit PRBC this hospital stay. Elevated troponin I level Demand ischemia due to hypoperfusion trend of troponins. Echo was poor study due to poor acoustic windows. no further testing at this time BPH (benign prostatic hyperplasia) BPH resume flomax. Abdominal distension Post OP passing flatus, KUB shows ileus , patient feels it getting softer will consider, surgery consult, CT abd if worsening pain or distention, at present distention +, non tender BS + will start clear liquid
[2018-11-24] MEDS: ACETAMINOPHEN 325 MG TABLET (FP) PO SCH ×2 (14:23→18:09)
[2018-11-24] MEDS: oxyCODONE HCL 5 MG TABLET PO SCH ×2 (14:24→18:09)
[2018-11-24] MEDS: ALBUTEROL SO4 0.083% IH SOL 2.5 MG/3 ML VIAL.NEB. NEB PRN (20:15)
[2018-11-24] MEDS: ATORVASTATIN CA 10 MG TABLET (FP) PO SCH (21:19)
[2018-11-25] MEDS: ACETAMINOPHEN 325 MG TABLET (FP) PO SCH ×4 (00:09→17:23)
[2018-11-25] MEDS: oxyCODONE HCL 5 MG TABLET PO SCH ×4 (00:09→17:22)
[2018-11-25 08:40] LABS: BASO % 0.4 % (0-2.0); EOS % 3.6 % (0-4.5); HEMATOCRIT 23.4 % (35.4-49); HEMOGLOBIN 7.7 GM/dL (11.7-16.9); LYMPH % 9.9 % (8-40); MCH 27.9 pg (25.7-33.7); MCHC 32.9 g/dl (32.0-35.9); MEAN CELL VOLUME 84.8 fl (80-96); MEAN PLT VOLUME 7.4 fl (7.5-11.1); NEUT % 74.1 % (42.8-82.8); PLATELET COUNT 229 K/MM3 (134-434); RBC 2.76 M/mm3 (4.00-5.60); RDW 14.7 % (11.9-15.9); WHITE BLOOD COUNT 8.2 K/mm3 (4.0-10.0)
[2018-11-25 09:08] LABS: ALK PHOS 48 U/L (45-117); ANION GAP 8 MMOL/L (8-16); BILIRUBIN,TOTAL 0.4 mg/dL (0.2-1); BLOOD UREA NITROGEN 9 mg/dL (7-18); CALCIUM 7.8 mg/dL (8.5-10.1); CHLORIDE 98 mmol/L (98-107); CO2 26 mmol/L (21-32); CREATININE 0.5 mg/dL (0.55-1.3); GLUCOSE,RANDOM 104 mg/dL (74-106); POTASSIUM 3.5 mmol/L (3.5-5.1); SGOT/AST 27 U/L (15-37); SGPT/ALT 26 U/L (13-61); SODIUM 132 mmol/L (136-145); TOT PROT 5.2 g/dl (6.4-8.2)
[2018-11-25] MEDS: DOXYCYCLINE INJECTION 100 MG in DEXTROSE 5%-WATER 100 ML IVPB SCH (10:03)
[2018-11-25] MEDS: SULFAMETHOXAZOLE/TRIMETHOPRIM 800MG/160MG D.S. TABLET PO SCH (10:03)
[2018-11-25] MEDS: TAMSULOSIN HCL 0.4 MG CAP PO SCH (10:03)
--- NOTE | 2018-11-25 12:38 | PN ---
Progress Note, Physician Chief Complaint: patient is still complaining of back pain and today he stated he hasnt used the bathroom in couple of days - Current Medication List Current Medications: Active Medications Acetaminophen (Tylenol -) 325 mg PO Q6HPO [facility] Last Admin: 11/25/18 11:26 Dose: 325 mg Albuterol Sulfate (Ventolin 0.083% Nebulizer Soln -) 1 amp NEB Q4H PRN PRN Reason: SHORT OF BREATH/WHEEZING Last Admin: 11/24/18 20:15 Dose: 1 amp Atorvastatin Calcium (Lipitor -) 10 mg PO HS [facility] Last Admin: 11/24/18 21:19 Dose: 10 mg Doxycycline Hyclate 100 mg/ (Dextrose) 100 mls @ 50 mls/hr IVPB BID [facility] Last Admin: 11/25/18 10:03 Dose: 50 mls/hr Morphine Sulfate (Morphine Sulfate) 4 mg IVPUSH Q4H PRN PRN Reason: PAIN LEVEL 6-10 Last Admin: 11/24/18 08:51 Dose: 4 mg Ondansetron HCl (Zofran Injection) 4 mg IVPUSH Q6H PRN PRN Reason: NAUSEA AND/OR VOMITING Oxycodone HCl (Roxicodone -) 5 mg PO Q6HPO [facility] Last Admin: 11/25/18 11:26 Dose: 5 mg Tamsulosin HCl (Flomax -) 0.4 mg PO DAILY@0830 [facility] Last Admin: 11/25/18 10:03 Dose: 0.4 mg Trimethoprim/Sulfamethoxazole (Bactrim Ds -) 1 each PO DAILY [facility] Last Admin: 11/25/18 10:03 Dose: 1 each - Objective Vital Signs: Vital Signs Temperature 97.5 F L 11/25/18 07:00 Pulse Rate 82 11/25/18 07:00 Respiratory Rate 20 11/25/18 07:00 Blood Pressure 146/90 11/25/18 07:00 O2 Sat by Pulse Oximetry (%) 98 11/25/18 09:00 Constitutional: Yes: Well Nourished, No Distress, Calm Eyes: Yes: WNL, Conjunctiva Clear HENT: Yes: WNL, Atraumatic, Normocephalic Neck: Yes: WNL, Supple, Trachea Midline Cardiovascular: Yes: WNL, Regular Rate and Rhythm Respiratory: Yes: WNL, Regular, CTA Bilaterally Gastrointestinal: Yes: WNL, Normal Bowel Sounds, Soft, Abdomen, Obese, Hypoactive Bowel Sounds Musculoskeletal: Yes: WNL Extremities: Yes: WNL Integumentary: Yes: WNL Wound/Incision: Yes: Clean/Dry, Well Approximated Neurological: Yes: WNL, Alert, Oriented ...Motor Strength: WNL Labs: CBC, BMP 11/25/18 08:00 11/25/18 08:00 INR, PTT INR 1.07 (0.83-1.09) 11/20/18 05:30 Assessment/Plan S/P spinal surgery Lumbar Stenosis with radiculopathy and claudication- s/p T12, L1, L2, L3, L4 , L5, S1 laminectomies; T11-L5 facetectomies/osteotomies; Simons-Villarreal osteotomies T12-L1, L1-L2, L3-L4; posterior instrumentation T11- S1; posterolateral arthrodesi T11-S1; bone autograft; bone allograft; bone marrow aspiration; stem cell autograft; intra-operative neural monitoring; intra-operative biplanar fluoroscopy; durotomy repair; complex wound closure ( 30cm) on 11/19. has drain in place. has not passed flatus. NPO till flatus, Gomez till ambulating. pain control. further recommendations per ortho - morphine 4mg IVP q4hr prn - oxydone 5/325mg acetaminophen q6hrs HTN (hypertension) on hold of BP meds due to intraoprtaive Hypotension- due to large volume loss. BP stable. hold oral antihypertensives. re-start as needed Hypotension after procedure - resolved Hyperlipidemia resume atorvastatin Acute blood loss anemia Acute blood loss anemia-2300 cc blood loss during surgery, cell saver and volume resuscitation initiated clark-operatively. s/p 3 unit PRBC this hospital stay. Elevated troponin I level Demand ischemia due to hypoperfusion trend of troponins. Echo was poor study due to poor acoustic windows. no further testing at this time BPH (benign prostatic hyperplasia) BPH resume flomax. Abdominal distension Post OP passing flatus, KUB shows ileus , patient feels it getting softer will consider, surgery consult, CT abd if worsening pain or distention, at present distention +, non tender BS + will start clear liquid
[2018-11-25 14:59] LABS: ANISOCYTOSIS 1+; MACROCYTOSIS 0; PLATELET ESTIMATE NORMAL
[2018-11-25] MEDS: ATORVASTATIN CA 10 MG TABLET (FP) PO SCH (21:48)
[2018-11-25] MEDS: LACTULOSE 20 GM/30 ML UDC (FOR ORAL USE ONLY) PO PRN (23:41)
[2018-11-26] MEDS: ACETAMINOPHEN 325 MG TABLET (FP) PO SCH ×4 (00:04→17:34)
[2018-11-26] MEDS: oxyCODONE HCL 5 MG TABLET PO SCH ×4 (00:04→17:33)
[2018-11-26] MEDS: SULFAMETHOXAZOLE/TRIMETHOPRIM 800MG/160MG D.S. TABLET PO SCH (09:33)
[2018-11-26] MEDS: TAMSULOSIN HCL 0.4 MG CAP PO SCH (09:33)
[2018-11-26] MEDS: LACTULOSE 20 GM/30 ML UDC (FOR ORAL USE ONLY) PO PRN (09:33)
--- NOTE | 2018-11-26 11:03 | PN ---
Progress Note, Physician History of Present Illness: Resting comfortably, post-op pain well-controlled, ambulated now sitting in chair. - Current Medication List Current Medications: Active Medications Acetaminophen (Tylenol -) 325 mg PO Q6HPO [facility] Last Admin: 11/26/18 05:45 Dose: 325 mg Albuterol Sulfate (Ventolin 0.083% Nebulizer Soln -) 1 amp NEB Q4H PRN PRN Reason: SHORT OF BREATH/WHEEZING Last Admin: 11/24/18 20:15 Dose: 1 amp Atorvastatin Calcium (Lipitor -) 10 mg PO HS [facility] Last Admin: 11/25/18 21:48 Dose: 10 mg Lactulose (Cephulac (Oral Use)) 20 gm PO TID PRN PRN Reason: CONSTIPATION Last Admin: 11/26/18 09:33 Dose: 20 gm Morphine Sulfate (Morphine Sulfate) 4 mg IVPUSH Q4H PRN PRN Reason: PAIN LEVEL 6-10 Last Admin: 11/24/18 08:51 Dose: 4 mg Ondansetron HCl (Zofran Injection) 4 mg IVPUSH Q6H PRN PRN Reason: NAUSEA AND/OR VOMITING Oxycodone HCl (Roxicodone -) 5 mg PO Q6HPO [facility] Last Admin: 11/26/18 05:46 Dose: 5 mg Tamsulosin HCl (Flomax -) 0.4 mg PO DAILY@0830 [facility] Last Admin: 11/26/18 09:33 Dose: 0.4 mg Trimethoprim/Sulfamethoxazole (Bactrim Ds -) 1 each PO DAILY [facility] Last Admin: 11/26/18 09:33 Dose: 1 each - Objective Vital Signs: Vital Signs Temperature 98 F 11/26/18 06:50 Pulse Rate 81 11/26/18 06:50 Respiratory Rate 18 11/26/18 06:50 Blood Pressure 163/82 11/26/18 06:50 O2 Sat by Pulse Oximetry (%) 98 11/25/18 21:00 Constitutional: Yes: No Distress, Calm Neck: Yes: Supple Cardiovascular: Yes: Regular Rate and Rhythm Respiratory: Yes: Regular, CTA Bilaterally Gastrointestinal: Yes: Normal Bowel Sounds, Soft, Abdomen, Obese Edema: No Labs: CBC, BMP 11/25/18 08:00 11/25/18 08:00 INR, PTT INR 1.07 (0.83-1.09) 11/20/18 05:30 Assessment/Plan Problem List - Problems (1) HTN (hypertension) Code(s): I10 - ESSENTIAL (PRIMARY) HYPERTENSION Qualifiers: Hypertension type: essential hypertension Qualified Code(s): I10 - Essential (primary) hypertension (2) Hyperlipidemia Code(s): E78.5 - HYPERLIPIDEMIA, UNSPECIFIED Qualifiers: Hyperlipidemia type: pure hypercholesterolemia Qualified Code(s): E78.00 - Pure hypercholesterolemia, unspecified; E78.0 - Pure hypercholesterolemia (3) Hypotension after procedure Code(s): I95.81 - POSTPROCEDURAL HYPOTENSION (4) S/P spinal surgery Code(s): Z98.890 - OTHER SPECIFIED POSTPROCEDURAL STATES 11/21/2018 Normal LV size and fxn, poor acoustic windows preclude valve eval 1. Lumbar Stenosis with radiculopathy and claudication 2. s/p T12-S1 Laminectomies/Posterior Instrumentation/Arthrodesis/Durotomy Repair 3. Acute Blood Loss Anemia 4. Hypovolemic Shock 6. Lactic Acidosis 7. +Troponins likely Demand Ischemia 8. Thrombocytopenia 9. s/p Acute Respiratory Failure 10. Hypercholesterolemia P: 1. Monitor H/H and transfuse as needed 2. Pain control with bowel regimen 3. Ambulate, PT as tolerated->SNF 4. DVT prophylaxis
[2018-11-26 15:19] VITALS: BMI 31.9
--- NOTE | 2018-11-26 21:10 | PN ---
Physical Exam: SUBJECTIVE: Patient seen and examined -pt with bowel movement after receiving lactulose - remains with abd distention, CT abd ordered OBJECTIVE: Vital Signs Period Temp Pulse Resp BP Sys/Conde Pulse Ox Last 24 Hr 98 F-99.3 F 81-96 18-22 121-163/68-82 97-98 GENERAL: The patient is awake, alert, and fully oriented, in no acute distress. HEAD: Normal with no signs of trauma. EYES: PERRL, extraocular movements intact, sclera anicteric, conjunctiva clear. ENT: nares patent, oropharynx clear without exudates, moist mucous membranes. NECK: Trachea midline, full range of motion, supple. Lower bacL with partially soiled surgical dsg LUNGS: Breath sounds equal, clear to auscultation bilaterally, no wheezes, no crackles, no accessory muscle use. HEART: Regular rate and rhythm, S1, S2 without murmur, rub or gallop. ABDOMEN: Soft, +distention (increased girth) normoactive bowel sounds. EXTREMITIES: 2+ pulses, warm, well-perfused, no edema. NEUROLOGICAL: Normal speech, gait not observed. PSYCH: Normal mood, normal affect. SKIN: Warm, dry, normal turgor, Active Medications Generic Name Dose Route Start Last Admin Trade Name Freq PRN Reason Stop Dose Admin Acetaminophen 325 mg 11/24/18 13:30 11/26/18 17:34 Tylenol - PO 325 mg Q6HPO HARRY Administration Albuterol Sulfate 1 amp 11/22/18 17:36 11/24/18 20:15 Ventolin 0.083% Nebulizer Soln - NEB 1 amp Q4H PRN Administration SHORT OF BREATH/WHEEZING Atorvastatin Calcium 10 mg 11/22/18 22:00 11/25/18 21:48 Lipitor - PO 10 mg HS HARRY Administration Lactulose 20 gm 11/25/18 13:15 11/26/18 09:33 Cephulac (Oral Use) PO 20 gm TID PRN Administration CONSTIPATION Morphine Sulfate 4 mg 11/22/18 17:36 11/24/18 08:51 Morphine Sulfate IVPUSH 4 mg Q4H PRN Administration PAIN LEVEL 6-10 Ondansetron HCl 4 mg 11/22/18 17:36 Zofran Injection IVPUSH Q6H PRN NAUSEA AND/OR VOMITING Oxycodone HCl 5 mg 11/24/18 13:30 11/26/18 17:33 Roxicodone - PO 5 mg Q6HPO HARRY Administration Tamsulosin HCl 0.4 mg 11/23/18 08:30 11/26/18 09:33 Flomax - PO 0.4 mg DAILY@0830 HARRY Administration Trimethoprim/Sulfamethoxazole 1 each 11/23/18 10:00 11/26/18 09:33 Bactrim Ds - PO 1 each DAILY HARRY Administration ASSESSMENT/PLAN: 68 year old M Lumbar Stenosis with radiculopathy and claudication- s/p T12, L1, L2, L3, L4, L5, S1 laminectomies; T11-L5 facetectomies/osteotomies; Simons-Villarreal osteotomies T12-L1, L1-L2, L3-L4; posterior instrumentation T11-S1; posterolateral arthrodesi T11-S1; bone autograft; bone allograft; bone marrow aspiration; stem cell autograft; intra- operative neural monitoring; intra-operative biplanar fluoroscopy; durotomy repair; complex wound closure (30cm) on 11/19. HTN (hypertension) -BP stable. hold oral antihypertensives. Hyperlipidemia lipitor 10mg Acute blood loss anemia: -Acute blood loss anemia-2300 cc blood loss during surgery, cell saver and volume resuscitation initiated clark-operatively. s/p 3 unit PRBC this hospital stay. BPH (benign prostatic hyperplasia) -flomax. Constipation -lactulose 20gm TID -CT scan abd inconclusive - surgery consult placed Pain control -PRN tylenol -Morphine 4mg PPX -PRN nebs -bactrim DS 1 tab daily Anemia -trend H/H -tranfuse as needed DISPO: -full code -Awaiting Subacute rehab Problem List - Problems (1) DVT prophylaxis Code(s): EAO7374 - (2) S/P spinal surgery Code(s): Z98.890 - OTHER SPECIFIED POSTPROCEDURAL STATES (3) HTN (hypertension) Code(s): I10 - ESSENTIAL (PRIMARY) HYPERTENSION Qualifiers: Hypertension type: essential hypertension Qualified Code(s): I10 - Essential (primary) hypertension (4) Hyperlipidemia Code(s): E78.5 - HYPERLIPIDEMIA, UNSPECIFIED Qualifiers: Hyperlipidemia type: pure hypercholesterolemia Qualified Code(s): E78.00 - Pure hypercholesterolemia, unspecified; E78.0 - Pure hypercholesterolemia Visit type - Emergency Visit Emergency Visit: No - New Patient This patient is new to me today: No - Critical Care Critical Care patient: No - Discharge Referral Referred to [facility] Med P.C.: No
[2018-11-26] MEDS: ATORVASTATIN CA 10 MG TABLET (FP) PO SCH (21:13)
[2018-11-27] MEDS: oxyCODONE HCL 5 MG TABLET PO SCH ×4 (00:06→18:47)
[2018-11-27] MEDS: ACETAMINOPHEN 325 MG TABLET (FP) PO SCH ×4 (00:08→18:46)
[2018-11-27] MEDS ORDERED: POTASSIUM CHLORIDE TABS 10 MEQ TABLET.ER (FP) PO ONE (09:19)
[2018-11-27] MEDS ORDERED: PT OWN MED DRAWER 7, Y5N ONE (09:47)
[2018-11-27] MEDS: TAMSULOSIN HCL 0.4 MG CAP PO SCH (09:53)
[2018-11-27] MEDS: SULFAMETHOXAZOLE/TRIMETHOPRIM 800MG/160MG D.S. TABLET PO SCH (09:53)
[2018-11-27] MEDS: LACTULOSE 20 GM/30 ML UDC (FOR ORAL USE ONLY) PO PRN (09:57)
--- NOTE | 2018-11-27 10:41 | CONSULT ---
- Consultation REQUESTING PROVIDER: CONSULT REQUEST: We have been asked to surgically evaluate this patient for bowel distention. PCP:Joanne Bear NP HISTORY OF PRESENT ILLNESS: The patient is a 68 yo male s/p T11 to S1 posterior fusion. He states that he is tolerating clears. No nausea or emesis. He has passed flatus in the past 2 days and had 2 bowel movements yesterday after the CT scan. He was given medication to help him with constipation yesterday. His abdomen is big and he does have occasional pain. He had a colonoscopy [facility] 5 years ago on a routine basis which was normal. The patient has had limited movements since his operation. According to nursing staff he tolerates oob to chair. The patient states that he ambualted yesterday with PT in the hallway. PMHx: HTN, High cholesterol, BPH, Left upper arm weakness, Right shoulder RTC , colonscopy 5 years ago on rountine basis/no masses found PSHx: posterior cervical spine sx in 2007 , cystoscopy with bx(negative) Home Medications Medication Instructions Recorded Aspirin [ASA -] 81 mg PO DAILY 11/15/18 Clopidogrel Bisulfate [Clopidogrel] 75 mg PO DAILY 11/15/18 Ergocalciferol (Vitamin D2) 2,000 unit PO DAILY 11/15/18 [Vitamin D2] Losartan Potassium 50 mg PO HS 11/15/18 Metoprolol Succinate [Toprol Xl] 25 mg PO DAILY 11/15/18 Simvastatin 20 mg PO DAILY 11/15/18 Sulfamethoxazole/Trimethoprim 1 each PO DAILY 11/15/18 [Sulfamethoxazole-Tmp Ds Tablet] Tamsulosin HCl 0.4 mg PO DAILY 11/15/18 Allergies Allergy/AdvReac Type Severity Reaction Status Date / Time No Known Allergies Allergy Verified 11/19/18 07:12 REVIEW OF SYSTEMS: GASTROINTESTINAL: Present: abd distention, abd pain(intermittent) GENITOURINARY: Present: urinary frequency, has coles catheter in place NEUROLOGIC: Absent: paresthesias Present: Left upper ext weakness PHYSICAL EXAM: GENERAL: Awake, alert, and fully oriented, in no acute distress. LUNGS: Clear to auscultation bilat anteriorly. No wheezes, and no crackles. No accessory muscle use. HEART: Regular rate and rhythm. No murmurs ABDOMEN: Soft, nontender, distended and tympanic. High pitched bowel sounds. Rectal: no gross blood or masses. No stool in vault. MUSCULOSKELETAL: Normal ROM at all joints. LOWER EXTREMITIES: 2+ pulses, warm, well-perfused. No calf tenderness. No peripheral edema. LLE 5/5 dorsi/plantar flexion. RLE 5/5 drosi flexion. 4/5 plantar flexion NEUROLOGICAL: Normal speech, gait not observed. Back: Dressing changed today. Inferior and Superior aspect of the dressing edges were peeling away. Dried stool near rectum. Vital Signs Temperature 98.1 F 11/27/18 07:32 Pulse Rate 82 11/27/18 07:32 Respiratory Rate 20 11/27/18 07:32 Blood Pressure 120/75 11/27/18 07:32 O2 Sat by Pulse Oximetry (%) 97 11/26/18 20:16 Lab Results WBC 8.2 K/mm3 (4.0-10.0) 11/25/18 08:00 RBC 2.76 M/mm3 (4.00-5.60) L 11/25/18 08:00 Hgb 7.7 GM/dL (11.7-16.9) L 11/25/18 08:00 Hct 23.4 % (35.4-49) L 11/25/18 08:00 MCV 84.8 fl (80-96) 11/25/18 08:00 MCHC 32.9 g/dl (32.0-35.9) 11/25/18 08:00 RDW 14.7 % (11.9-15.9) 11/25/18 08:00 Plt Count 229 K/MM3 (134-434) 11/25/18 08:00 Sodium 132 mmol/L (136-145) L 11/25/18 08:00 Potassium 3.5 mmol/L (3.5-5.1) 11/25/18 08:00 Chloride 98 mmol/L (98-107) 11/25/18 08:00 Carbon Dioxide 26 mmol/L (21-32) 11/25/18 08:00 Anion Gap 8 MMOL/L (8-16) 11/25/18 08:00 BUN 9 mg/dL (7-18) 11/25/18 08:00 Creatinine 0.5 mg/dL (0.55-1.3) L 11/25/18 08:00 Random Glucose 104 mg/dL (74-106) 11/25/18 08:00 Calcium 7.8 mg/dL (8.5-10.1) L 11/25/18 08:00 Blood Type A POSITIVE 11/22/18 07:50 Antibody Screen Negative 11/22/18 07:50 INR 1.07 (0.83-1.09) 11/20/18 05:30 CT scan: No IV contrast(limited oral contrast) 11/26: diffuse large bowel distention ?narrowing sigmoid colon. ?Cecal pneumotosis AXR 11/22: bowel distention/ileus Problem List - Problems (1) Abdominal distension Assessment/Plan: 68 yo male s/p T11-S1 PLIF with post op bowel distention. He is tolerating clear liquid diet and had 2 bowel movements with lactulose x1. Repeat AXR orderd for today, Npo. GI consult for decompression D/w Dr. Amaya Code(s): R14.0 - ABDOMINAL DISTENSION (GASEOUS)
[2018-11-27] MEDS ORDERED: DOCUSATE SODIUM 100 MG CAPSULE (FP) PO PRN (12:03)
[2018-11-27 12:50] LABS: HEMATOCRIT 27.3 % (35.4-49); HEMOGLOBIN 9.2 GM/dL (11.7-16.9); MCH 28.7 pg (25.7-33.7); MCHC 33.9 g/dl (32.0-35.9); MEAN CELL VOLUME 84.6 fl (80-96); MEAN PLT VOLUME 7.2 fl (7.5-11.1); PLATELET COUNT 362 K/MM3 (134-434); RBC 3.22 M/mm3 (4.00-5.60); WHITE BLOOD COUNT 8.3 K/mm3 (4.0-10.0)
[2018-11-27 13:16] LABS: ALBUMIN 2.3 g/dl (3.4-5.0); ALK PHOS 57 U/L (45-117); ANION GAP 9 MMOL/L (8-16); BILIRUBIN,TOTAL 0.4 mg/dL (0.2-1); BLOOD UREA NITROGEN 9 mg/dL (7-18); CALCIUM 8.1 mg/dL (8.5-10.1); CHLORIDE 99 mmol/L (98-107); CO2 24 mmol/L (21-32); CREATININE 0.5 mg/dL (0.55-1.3); GLUCOSE,RANDOM 98 mg/dL (74-106); MAGNESIUM 2.2 mg/dL (1.8-2.4); SGOT/AST 24 U/L (15-37); SGPT/ALT 24 U/L (13-61); SODIUM 131 mmol/L (136-145); TOT PROT 5.8 g/dl (6.4-8.2)
--- NOTE | 2018-11-27 13:58 | PN ---
Progress Note, Physician History of Present Illness: Abdominal distension, had BM, ambulated now sitting in chair. - Current Medication List Current Medications: Active Medications Acetaminophen (Tylenol -) 325 mg PO Q6HPO [facility] Last Admin: 11/27/18 12:03 Dose: 325 mg Albuterol Sulfate (Ventolin 0.083% Nebulizer Soln -) 1 amp NEB Q4H PRN PRN Reason: SHORT OF BREATH/WHEEZING Last Admin: 11/24/18 20:15 Dose: 1 amp Atorvastatin Calcium (Lipitor -) 10 mg PO HS [facility] Last Admin: 11/26/18 21:13 Dose: 10 mg Docusate Sodium (Colace -) 100 mg PO Q8H PRN PRN Reason: CONSTIPATION Ondansetron HCl (Zofran Injection) 4 mg IVPUSH Q6H PRN PRN Reason: NAUSEA AND/OR VOMITING Oxycodone HCl (Roxicodone -) 5 mg PO Q6HPO [facility] Last Admin: 11/27/18 12:02 Dose: 5 mg Polyethylene Glycol (Miralax (For Daily Use) -) 17 gm PO BID [facility] Senna (Senna -) 2 tab PO HS PRN PRN Reason: CONSTIPATION Tamsulosin HCl (Flomax -) 0.4 mg PO DAILY@0830 [facility] Last Admin: 11/27/18 09:53 Dose: 0.4 mg Trimethoprim/Sulfamethoxazole (Bactrim Ds -) 1 each PO DAILY [facility] Last Admin: 11/27/18 09:53 Dose: 1 each - Objective Vital Signs: Vital Signs Temperature 97.8 F 11/27/18 10:00 Pulse Rate 82 11/27/18 10:00 Respiratory Rate 18 11/27/18 10:00 Blood Pressure 152/83 11/27/18 10:00 O2 Sat by Pulse Oximetry (%) 97 11/26/18 20:16 Constitutional: Yes: No Distress, Calm Neck: Yes: Supple Cardiovascular: Yes: Regular Rate and Rhythm Respiratory: Yes: Regular, Diminished Gastrointestinal: Yes: Soft, Distention, Hypoactive Bowel Sounds Edema: No Labs: CBC, BMP 11/27/18 12:25 11/27/18 12:25 INR, PTT INR 1.07 (0.83-1.09) 11/20/18 05:30 Problem List - Problems (1) Pseudoobstruction of colon Code(s): K59.8 - OTHER SPECIFIED FUNCTIONAL INTESTINAL DISORDERS Assessment/Plan Problem List - Problems (1) HTN (hypertension) Code(s): I10 - ESSENTIAL (PRIMARY) HYPERTENSION Qualifiers: Hypertension type: essential hypertension Qualified Code(s): I10 - Essential (primary) hypertension (2) Hyperlipidemia Code(s): E78.5 - HYPERLIPIDEMIA, UNSPECIFIED Qualifiers: Hyperlipidemia type: pure hypercholesterolemia Qualified Code(s): E78.00 - Pure hypercholesterolemia, unspecified; E78.0 - Pure hypercholesterolemia (3) Hypotension after procedure Code(s): I95.81 - POSTPROCEDURAL HYPOTENSION (4) S/P spinal surgery Code(s): Z98.890 - OTHER SPECIFIED POSTPROCEDURAL STATES 11/21/2018 Normal LV size and fxn, poor acoustic windows preclude valve eval 1. Lumbar Stenosis with radiculopathy and claudication 2. s/p T12-S1 Laminectomies/Posterior Instrumentation/Arthrodesis/Durotomy Repair 3. Acute Blood Loss Anemia 4. Hypovolemic Shock 6. Lactic Acidosis 7. +Troponins likely Demand Ischemia 8. Thrombocytopenia 9. s/p Acute Respiratory Failure 10. Hypercholesterolemia 11. Colon pseudoobstruction P: 1. Monitor H/H and transfuse as needed 2. Decrease opiate use with bowel regimen, GI eval pending for colonoscopy decompression 3. Ambulate, PT as tolerated->SNF 4. DVT prophylaxis
--- NOTE | 2018-11-27 17:55 | CON.GI ---
Consult Consult Specialty:: GI consult dictated -rectal tube for decompression/ npo for potential proc - Past Medical History Cardio/Vascular: Yes: HTN, Hyperlipdemia - Alcohol/Substance Use Hx Alcohol Use: Yes (occ) - Smoking History Smoking history: Former smoker Have you smoked in the past 12 months: No If you are a former smoker, when did you quit?: 2007 Home Medications - Allergies Allergies/Adverse Reactions: Allergies Allergy/AdvReac Type Severity Reaction Status Date / Time No Known Allergies Allergy Verified 11/19/18 07:12 - Home Medications Home Medications: Ambulatory Orders Aspirin [ASA -] 81 mg PO DAILY 11/15/18 Clopidogrel Bisulfate [Clopidogrel] 75 mg PO DAILY 11/15/18 Ergocalciferol (Vitamin D2) [Vitamin D2] 2,000 unit PO DAILY 11/15/18 Losartan Potassium 50 mg PO HS 11/15/18 Metoprolol Succinate [Toprol Xl] 25 mg PO DAILY 11/15/18 Simvastatin 20 mg PO DAILY 11/15/18 Sulfamethoxazole/Trimethoprim [Sulfamethoxazole-Tmp Ds Tablet] 1 each PO DAILY 11/15/18 Tamsulosin HCl 0.4 mg PO DAILY 11/15/18 Physical Exam-GI Vital Signs: Vital Signs Temperature 97.8 F 11/27/18 10:00 Pulse Rate 82 11/27/18 10:00 Respiratory Rate 18 11/27/18 10:00 Blood Pressure 152/83 11/27/18 10:00 O2 Sat by Pulse Oximetry (%) 97 11/26/18 20:16 Labs: CBC, BMP 11/27/18 12:25 11/27/18 12:25 INR, PTT INR 1.07 (0.83-1.09) 11/20/18 05:30
--- NOTE | 2018-11-27 19:54 | PN ---
Physical Exam: SUBJECTIVE: Patient seen and examined -pt reports abdomen feels "less full" -pt evaluated by surgery, who recommends GI consult for decompression -repeat abd x-ray done this morning inconclusive findings OBJECTIVE: Vital Signs Period Temp Pulse Resp BP Sys/Conde Pulse Ox Last 24 Hr 97.8 F-98.1 F 82-83 18-20 120-152/74-83 97-97 GENERAL: The patient is awake, alert, and fully oriented, in no acute distress. HEAD: Normal with no signs of trauma. EYES: PERRL, extraocular movements intact, sclera anicteric, conjunctiva clear. ENT: nares patent, oropharynx clear without exudates, moist mucous membranes. NECK: Trachea midline, Lower back:clean dry sterile dsg LUNGS: Breath sounds equal, clear to auscultation bilaterally, no wheezes, no crackles, no accessory muscle use. HEART: Regular rate and rhythm, S1, S2 without murmur, rub or gallop. ABDOMEN: Soft, +distention (increased girth) hyperactive bowel sounds. EXTREMITIES: 2+ pulses, warm, well-perfused, no edema. NEUROLOGICAL: Normal speech pattern, no acute deficits PSYCH: Normal mood, normal affect. SKIN: Warm, dry, normal turgor, Laboratory Results - last 24 hr 11/27/18 11/27/18 11/27/18 10:29 12:25 12:25 WBC 8.3 RBC 3.22 L Hgb 9.2 L Hct 27.3 L D MCV 84.6 MCH 28.7 MCHC 33.9 RDW 15.0 Plt Count 362 D MPV 7.2 L Sodium 131 L Potassium 4.0 Chloride 99 Carbon Dioxide 24 Anion Gap 9 BUN 9 Creatinine 0.5 L Creat Clearance w eGFR 164.87 Random Glucose 98 Calcium 8.1 L Magnesium 2.2 Total Bilirubin 0.4 AST 24 ALT 24 Alkaline Phosphatase 57 Total Protein 5.8 L Albumin 2.3 L Blood Type A POSITIVE Antibody Screen Negative Crossmatch See Detail Active Medications Generic Name Dose Route Start Last Admin Trade Name Freq PRN Reason Stop Dose Admin Acetaminophen 325 mg 11/24/18 13:30 11/27/18 18:46 Tylenol - PO 325 mg Q6HPO HARRY Administration Atorvastatin Calcium 10 mg 11/22/18 22:00 11/26/18 21:13 Lipitor - PO 10 mg HS HARRY Administration Docusate Sodium 100 mg 11/27/18 12:03 Colace - PO Q8H PRN CONSTIPATION Ondansetron HCl 4 mg 11/22/18 17:36 Zofran Injection IVPUSH Q6H PRN NAUSEA AND/OR VOMITING Oxycodone HCl 5 mg 11/24/18 13:30 11/27/18 18:47 Roxicodone - PO 5 mg Q6HPO HARRY Administration Polyethylene Glycol 17 gm 11/27/18 22:00 Miralax (For Daily Use) - PO BID HARRY Senna 2 tab 11/27/18 22:00 Senna - PO HS PRN CONSTIPATION Tamsulosin HCl 0.4 mg 11/23/18 08:30 11/27/18 09:53 Flomax - PO 0.4 mg DAILY@0830 HARRY Administration Trimethoprim/Sulfamethoxazole 1 each 11/23/18 10:00 11/27/18 09:53 Bactrim Ds - PO 1 each DAILY HARRY Administration Abd x-ray 11/27/2018 Abdomen: Distention. Single view the abdomen shows a similar appearance to that seen on the ring maker film for an abdomen CT dated 11/26/2018 at 1506 hours. There is evidence of extensive spinal fusion and there are midline lilia. Free air is not appreciated. On the CT scan, the question of a sigmoid narrowing was suggested causing a possible obstruction. There was also a question of pneumatosis in the right colon. This is not delineated at this time. Correlation recommended. Further imaging may be of help. Reported By: Bladimir Funes MD 11/27/18 1310 ASSESSMENT/PLAN: 68 year old M Lumbar Stenosis with radiculopathy and claudication- s/p T12, L1, L2, L3, L4, L5, S1 laminectomies; T11-L5 facetectomies/osteotomies; Simons-Villarreal osteotomies T12-L1, L1-L2, L3-L4; posterior instrumentation T11-S1; posterolateral arthrodesi T11-S1; bone autograft; bone allograft; bone marrow aspiration; stem cell autograft; intra- operative neural monitoring; intra-operative biplanar fluoroscopy; durotomy repair; complex wound closure (30cm) on 11/19. HTN (hypertension) -BP stable. hold oral antihypertensives. Hyperlipidemia lipitor 10mg Acute blood loss anemia: -Acute blood loss anemia-2300 cc blood loss during surgery, cell saver and volume resuscitation initiated clark-operatively. s/p 3 unit PRBC this hospital stay. BPH (benign prostatic hyperplasia) -flomax. Constipation -lactulose 20gm TID -add senna/colace/miralax -GI consult placed for possible rectal decompression Pain control -PRN tylenol -oxycodone 5mg q6hrs PRN FEN: -NPO PPX -PRN nebs -bactrim DS 1 tab daily Anemia -trend H/H -tranfuse as needed DISPO: -full code -Awaiting Subacute rehab Problem List - Problems (1) DVT prophylaxis Code(s): ACK9184 - (2) S/P spinal surgery Code(s): Z98.890 - OTHER SPECIFIED POSTPROCEDURAL STATES (3) HTN (hypertension) Code(s): I10 - ESSENTIAL (PRIMARY) HYPERTENSION Qualifiers: Hypertension type: essential hypertension Qualified Code(s): I10 - Essential (primary) hypertension (4) Hyperlipidemia Code(s): E78.5 - HYPERLIPIDEMIA, UNSPECIFIED Qualifiers: Hyperlipidemia type: pure hypercholesterolemia Qualified Code(s): E78.00 - Pure hypercholesterolemia, unspecified; E78.0 - Pure hypercholesterolemia Visit type - Emergency Visit Emergency Visit: No - New Patient This patient is new to me today: No - Critical Care Critical Care patient: No - Discharge Referral Referred to [facility] Med P.C.: No
[2018-11-27] MEDS: ATORVASTATIN CA 10 MG TABLET (FP) PO SCH (21:30)
[2018-11-27] MEDS: POLYETHYLENE GLYCOL 3350 119 GM BTL PO SCH (21:33)
--- NOTE | 2018-11-27 21:56 | CONS ---
GASTROENTEROLOGY CONSULTATION DATE OF CONSULTATION: DATE OF DICTATION: 11/27/2018 The patient is a 68-year-old man with a past medical history of hypertension, hyperlipidemia, BPH, cervical spine surgery in 2008, also with a cystoscopy in the past, who now is status post a T11 to S1 posterior fusion. This procedure was done on the of this month, and the patient states that since then, he has had abdominal distention and bloating. He states that he is moving his bowels, but still, has noticed significant distention. He denies nausea, vomiting, abdominal pain, fevers, chills, or blood in the stool. States his last colonoscopy was 5-6 years ago. He reports it to be normal. He has not had an endoscopy. He also reports being able to minimally ambulate after his surgery. However, he has tried to walk around to alleviate his abdominal pressure. PAST MEDICAL AND SURGICAL HISTORY: As listed in the HPI. ALLERGIES: No known drug allergies. SOCIAL HISTORY: Does not smoke or drink. FAMILY HISTORY: No history of GI or gynecological malignancy. PHYSICAL EXAMINATION: Vital Signs: Temperature 97, pulse 82, respiratory rate 12, blood pressure 150/83, pulse oximetry 97% on room air. General: No acute distress. HEENT: Anicteric sclerae. Cardiovascular: S1, S2. Regular rate and rhythm. Lungs: Bilaterally clear to auscultation. Abdomen: Distended, nontender, and tympanic. Extremities: No edema. LABORATORY DATA: White blood cell count 8.3, hemoglobin 9 and hematocrit 27, MCV 84, hemoglobin between 7 and 9 is the baseline, platelet count 362. INR 1. Sodium 131, potassium 4, BUN 9, creatinine 0.5. Glucose 98. Liver tests: AST 24, ALT 24, alkaline phosphatase 57. Abdomen and pelvis CT scan was performed on the first without contrast. This revealed distended colon, primarily air, but also fluid and unformed stool. The transverse colon is most dilated and proximally measured 8 cm in diameter. Cecum measured 6.8 cm in diameter. The colon continues distended until the distal sigmoid where it has a funnel shape and there is an increased sequence without obvious mass. The area of possible narrowing measures 2.1 cm. Mild hyperdensity in the most-dependent portion of the cecum. It does not look like oral contrast has reached the area, but it is still possible. It could represent blood. However, without IV contrast, this was not a good study. Abdominal x-ray was performed today and did not reveal much change from his CT scan that was done yesterday. IMPRESSION: Bowel dilation in the setting of a postoperative state. Unclear if this is a pseudo-obstruction or an actual obstruction considering there is narrowing in the sigmoid colon. RECOMMENDATION: Insert rectal tube for decompression. Would avoid lactulose as that will increase bloating. Encourage ambulation. Monitor electrolytes and correct all electrolyte abnormalities. He will remain n.p.o. with IV fluids for potential decompression tomorrow pending his progress overnight. Would also order a repeat abdominal x-ray for tomorrow morning. Monitor abdominal exams. This patient will be followed very closely by the GI service. DO ARABELLA WISE/[id number]
[2018-11-27] MEDS ORDERED: SENNOSIDES 8.6MG TABLET (FP) PO PRN (22:00)
[2018-11-28] MEDS: oxyCODONE HCL 5 MG TABLET PO SCH ×4 (00:01→18:23)
[2018-11-28] MEDS: ACETAMINOPHEN 325 MG TABLET (FP) PO SCH ×4 (00:03→18:25)
[2018-11-28 06:48] LABS: HEMATOCRIT 26.4 % (35.4-49); HEMOGLOBIN 8.7 GM/dL (11.7-16.9); MCH 28.1 pg (25.7-33.7); MCHC 32.9 g/dl (32.0-35.9); MEAN CELL VOLUME 85.3 fl (80-96); MEAN PLT VOLUME 7.3 fl (7.5-11.1); PLATELET COUNT 401 K/MM3 (134-434); RDW 15.2 % (11.9-15.9); WHITE BLOOD COUNT 12.5 K/mm3 (4.0-10.0)
--- NOTE | 2018-11-28 07:41 | PN ---
Progress Note (short form) - Note Progress Note: POD #9 s/p T11-S1 posterior fusion. General Surgery following secondary to distended abdomen. Patient passing flatus and having multiple BMs s/p ABD CT scan yesterday. States he feels much better. He tolerates getting oob to chair with assistance. Gets OOB and ambulates with PT assist. Denies n/v/f/c, CP, SOB, SANTAMARIA. Last Vital Signs Temp Pulse Resp BP Pulse Ox 98.1 F 92 H 20 143/79 99 11/28/18 07:10 11/28/18 07:10 11/28/18 07:10 11/28/18 07:10 11/27/18 21:00 CBC, BMP 11/28/19 06:30 Gen: nad Back: dressing c/d/i ABD: Distended. Tympanic throughout. + bowel sounds in all quadrants. Motor: GMNVI all extrem LE: SCDs bilat Problem List - Problems (1) Abdominal distension Assessment/Plan: POD #9 s/p T11-S1 posterior fusion. f/u repeat AXR - comparative study Cont OOB and ambulate w/ PT If constipation persists, recommend GI eval for rectal tube placement Stool softners Pain management PRN --> try to avoid prolonged use of narcotics as this is most likely causing his constipation Cont medical management Code(s): R14.0 - ABDOMINAL DISTENSION (GASEOUS) (2) S/P spinal surgery Code(s): Z98.890 - OTHER SPECIFIED POSTPROCEDURAL STATES
[2018-11-28 07:49] LABS: ALBUMIN 2.3 g/dl (3.4-5.0); ALK PHOS 56 U/L (45-117); ANION GAP 11 MMOL/L (8-16); BILIRUBIN,TOTAL 0.9 mg/dL (0.2-1); BLOOD UREA NITROGEN 11 mg/dL (7-18); CALCIUM 7.8 mg/dL (8.5-10.1); CHLORIDE 100 mmol/L (98-107); CO2 23 mmol/L (21-32); CREATININE 0.6 mg/dL (0.55-1.3); GLUCOSE,RANDOM 76 mg/dL (74-106); MAGNESIUM 1.9 mg/dL (1.8-2.4); POTASSIUM 4.3 mmol/L (3.5-5.1); SGOT/AST 22 U/L (15-37); SGPT/ALT 22 U/L (13-61); SODIUM 134 mmol/L (136-145); TOT PROT 5.4 g/dl (6.4-8.2)
[2018-11-28] MEDS ORDERED: PT OWN MED DRAWER 7, Y5N ONE (10:20)
[2018-11-28] MEDS: SULFAMETHOXAZOLE/TRIMETHOPRIM 800MG/160MG D.S. TABLET PO SCH (10:25)
[2018-11-28] MEDS: TAMSULOSIN HCL 0.4 MG CAP PO SCH (10:25)
[2018-11-28] MEDS: POLYETHYLENE GLYCOL 3350 119 GM BTL PO SCH ×2 (10:27→22:08)
--- NOTE | 2018-11-28 12:59 | PN ---
Progress Note, Physician History of Present Illness: Abdominal distension improving, had BM and flatus, ambulated now sitting in chair. - Current Medication List Current Medications: Active Medications Acetaminophen (Tylenol -) 325 mg PO Q6HPO [facility] Last Admin: 11/28/18 11:44 Dose: 325 mg Atorvastatin Calcium (Lipitor -) 10 mg PO HS [facility] Last Admin: 11/27/18 21:30 Dose: 10 mg Docusate Sodium (Colace -) 100 mg PO Q8H PRN PRN Reason: CONSTIPATION Ondansetron HCl (Zofran Injection) 4 mg IVPUSH Q6H PRN PRN Reason: NAUSEA AND/OR VOMITING Oxycodone HCl (Roxicodone -) 5 mg PO Q6HPO [facility] Last Admin: 11/28/18 11:42 Dose: 5 mg Polyethylene Glycol (Miralax (For Daily Use) -) 17 gm PO BID [facility] Last Admin: 11/28/18 10:27 Dose: 17 grams Senna (Senna -) 2 tab PO HS PRN PRN Reason: CONSTIPATION Tamsulosin HCl (Flomax -) 0.4 mg PO DAILY@0830 [facility] Last Admin: 11/28/18 10:25 Dose: 0.4 mg Trimethoprim/Sulfamethoxazole (Bactrim Ds -) 1 each PO DAILY [facility] Last Admin: 11/28/18 10:25 Dose: 1 each - Objective Vital Signs: Vital Signs Temperature 97.5 F L 11/28/18 08:25 Pulse Rate 89 11/28/18 08:25 Respiratory Rate 22 H 11/28/18 08:25 Blood Pressure 138/78 11/28/18 08:25 O2 Sat by Pulse Oximetry (%) 99 11/27/18 21:00 Constitutional: Yes: No Distress, Calm Neck: Yes: Supple Cardiovascular: Yes: Regular Rate and Rhythm Respiratory: Yes: Regular, Diminished Gastrointestinal: Yes: Distention, Hypoactive Bowel Sounds Edema: No Labs: CBC, BMP 11/28/18 06:30 11/28/18 06:30 INR, PTT INR 1.07 (0.83-1.09) 11/20/18 05:30 Problem List - Problems (1) Pseudoobstruction of colon Code(s): K59.8 - OTHER SPECIFIED FUNCTIONAL INTESTINAL DISORDERS Assessment/Plan Problem List - Problems (1) HTN (hypertension) Code(s): I10 - ESSENTIAL (PRIMARY) HYPERTENSION Qualifiers: Hypertension type: essential hypertension Qualified Code(s): I10 - Essential (primary) hypertension (2) Hyperlipidemia Code(s): E78.5 - HYPERLIPIDEMIA, UNSPECIFIED Qualifiers: Hyperlipidemia type: pure hypercholesterolemia Qualified Code(s): E78.00 - Pure hypercholesterolemia, unspecified; E78.0 - Pure hypercholesterolemia (3) Hypotension after procedure Code(s): I95.81 - POSTPROCEDURAL HYPOTENSION (4) S/P spinal surgery Code(s): Z98.890 - OTHER SPECIFIED POSTPROCEDURAL STATES 11/21/2018 Normal LV size and fxn, poor acoustic windows preclude valve eval 1. Lumbar Stenosis with radiculopathy and claudication 2. s/p T12-S1 Laminectomies/Posterior Instrumentation/Arthrodesis/Durotomy Repair 3. Acute Blood Loss Anemia 4. Hypovolemic Shock 6. Lactic Acidosis 7. +Troponins likely Demand Ischemia 8. Thrombocytopenia 9. s/p Acute Respiratory Failure 10. Hypercholesterolemia 11. Colon pseudoobstruction P: 1. Monitor H/H and transfuse as needed 2. Decrease opiate use with bowel regimen, GI eval pending for rectal tube decompression 3. Ambulate, PT as tolerated->SNF 4. DVT prophylaxis
--- NOTE | 2018-11-28 13:03 | PN.GI ---
GI Progress Note Subjective: Pt seen/examined at bedside, feels better overall with slight improvement in distension per pt, had 2 bms yesterday and flatus, none yet today. Denies nausea /vomiting, abdominal pain, fever/chills. Remains npo. Has been ambulating. - Objective Vital Signs: Vital Signs Temperature 97.5 F L 11/28/18 08:25 Pulse Rate 89 11/28/18 08:25 Respiratory Rate 22 H 11/28/18 08:25 Blood Pressure 138/78 11/28/18 08:25 O2 Sat by Pulse Oximetry (%) 99 11/27/18 21:00 Constitutional: Well Nourished, No Distress, Calm Cardiovascular: Yes: WNL, Regular Rate and Rhythm Respiratory: Yes: WNL, Regular, CTA Bilaterally Gastrointestinal Inspection: Yes: Distention ...Palpate: Yes: Other (Abd distended, tympanitic, nontender +bs, improvement noted after rectal tube placement) ...Rectal Exam: Yes: Other (Rectal tube placed at bedside, flushed with sterile water with large amount of liquid brown stool and some more formed stool expelled on digital exam and tube placement, attached to coles.) Labs: CBC, BMP 11/28/18 06:30 11/28/18 06:30 INR, PTT INR 1.07 (0.83-1.09) 11/20/18 05:30 Problem List - Problems (1) Abdominal distension Assessment/Plan: 68yo male h/o intervertebral disc order s/p laminectomies, T11-S1 posterior fusion with abdominal distension s/p CT imaging revealing dilated colon with some narrowing towards the sigmoid without obvious obstruction. Likely colonic pseudoobstruction. Xray today revealing some improvement at left/right colons though still with predominant transverse colon dilation, overall appearing unchanged. D/w radiology. Discussed risks/benefits of colonic decompression in detail with pt and his brother (by phone as requested per pt), including but not limited to infection, perforation, and need for possible surgical interventions. Also discussed risk of progressive distension and potential risk of perforation if colonoscopy/ decompression not pursued. Pt/pts brother both verbalized understanding of risks /benefits and refuse colonoscopy/decompression at this time, opting for conservative approach. -Recommend rectal tube at bedside to attempt to further alleviate distension -- pt agreeable and was placed at bedside today with large amount of liquid brown stool expelled -Advised nurse to turn patient onto left and right sides and flush tube with 20cc sterile water, twice per shift -Repeat AXR with rectal tube in place (ordered) and in am -Serial abd exams -NPO for now -Continue to monitor and replete electrolytes as needed -Minimize narcotics if possible -Encourage ambulation and frequent repositioning in bed Discussed with surgery and medicine teams Code(s): R14.0 - ABDOMINAL DISTENSION (GASEOUS)
--- NOTE | 2018-11-28 15:37 | PN ---
Physical Exam: SUBJECTIVE: patient seen and examined at the bedside. feels well. abdomen distended, but had a bm yesterday. he is agreeing to have a rectal tube placed today. OBJECTIVE: Vital Signs Period Temp Pulse Resp BP Sys/Conde Pulse Ox Last 24 Hr 97.5 F-99 F 78-92 18-22 113-143/62-80 99 GENERAL: The patient is awake, alert, and fully oriented, in no acute distress. HEAD: Normal with no signs of trauma. EYES: PERRL, extraocular movements intact, sclera anicteric, conjunctiva clear. No ptosis. ENT: Ears normal, nares patent, oropharynx clear without exudates, moist mucous membranes. NECK: Trachea midline, full range of motion, supple. LUNGS: Breath sounds equal, clear to auscultation bilaterally HEART: Regular rate and rhythm ABDOMEN: abdomen distended, soft, non tender, hypoactive bowel sounds. for rectal tube today. EXTREMITIES: 2+ pulses, warm, well-perfused, no edema. NEUROLOGICAL: Normal speech, gait not observed. PSYCH: Normal mood, normal affect. SKIN: Warm, dry, normal turgor, no rashes or lesions noted Laboratory Results - last 24 hr 11/28/18 11/28/18 11/28/18 05:22 06:30 06:30 WBC 12.5 H RBC 3.10 L Hgb 8.7 L Hct 26.4 L MCV 85.3 MCH 28.1 MCHC 32.9 RDW 15.2 Plt Count 401 MPV 7.3 L Sodium 134 L Potassium 4.3 Chloride 100 Carbon Dioxide 23 Anion Gap 11 BUN 11 Creatinine 0.6 Creat Clearance w eGFR 133.59 POC Glucometer 77 Random Glucose 76 Calcium 7.8 L Magnesium 1.9 Total Bilirubin 0.9 AST 22 ALT 22 Alkaline Phosphatase 56 Total Protein 5.4 L Albumin 2.3 L Active Medications Generic Name Dose Route Start Last Admin Trade Name Freq PRN Reason Stop Dose Admin Acetaminophen 325 mg 11/24/18 13:30 11/28/18 11:44 Tylenol - PO 325 mg Q6HPO HARRY Administration Atorvastatin Calcium 10 mg 11/22/18 22:00 11/27/18 21:30 Lipitor - PO 10 mg HS HARRY Administration Docusate Sodium 100 mg 11/27/18 12:03 Colace - PO Q8H PRN CONSTIPATION Ondansetron HCl 4 mg 11/22/18 17:36 Zofran Injection IVPUSH Q6H PRN NAUSEA AND/OR VOMITING Oxycodone HCl 5 mg 11/24/18 13:30 11/28/18 11:42 Roxicodone - PO 5 mg Q6HPO HARRY Administration Polyethylene Glycol 17 gm 11/27/18 22:00 11/28/18 10:27 Miralax (For Daily Use) - PO 17 grams BID HARRY Administration Senna 2 tab 11/27/18 22:00 Senna - PO HS PRN CONSTIPATION Tamsulosin HCl 0.4 mg 11/23/18 08:30 11/28/18 10:25 Flomax - PO 0.4 mg DAILY@0830 HARRY Administration Trimethoprim/Sulfamethoxazole 1 each 11/23/18 10:00 11/28/18 10:25 Bactrim Ds - PO 1 each DAILY HARRY Administration ASSESSMENT/PLAN: Patient is a 68 year old male s/p lumbar stenosis with radiculopathy and claudication- s/p T12, L1, L2, L3, L4, L5, S1 laminectomies; T11-L5 facetectomies/osteotomies; luu-Villarreal osteotomies T12-L1, L1-L2, L3-L4; posterior instrumentation T11-S1; posterolateral arthrodesi T11-S1; bone autograft; bone allograft; bone marrow aspiration; stem cell autograft; intra- operative neural monitoring; intra-operative biplanar fluoroscopy; durotomy repair; complex wound closure (30cm) on 11/19/18. Developed abdominal distention post surgery. His other past medical history includes HTN, hyperipidemia, BPH, left upper arm weakness, Right shoulder RTC, colonscopy 5 years ago on routine basis/no masses found Imaging: abdominal xray 11/28/18: distended colon, no signs of free air. no signs of gross colonic stool retention. Surgery: POD #9 s/p T11-S1 posterior fusion Care per surgery team pain management, incentive spirometer, bowel regimen encourage ambulation Card: Hypertension. monitor BP. Hyperlipidemia. on lipitor 10mg daily Anemia: Acute blood loss anemia: s/p 3 units of prbc. h/h stable. : BPH On Flomax GI: Constipation/Colonic psudoobstruction minimize use of narcotics. NPO, abdominal xrays daily. GI consult for possible rectal decompression, but family and patient refusing surgical intervention. rectal tube placed by GI physician. for repeat abdominal xray in a.m. on senna, colace, miralax. GI consult and rectal tube placed fen ns @ 50cc/hr monitor electrolytes npo except for PO meds monitor rectal tube output prophy SCDs. ambulation Visit type - Emergency Visit Emergency Visit: Yes ED Registration Date: 11/19/18 Care time: The patient presented to the Emergency Department on the above date and was hospitalized for further evaluation of their emergent condition. - New Patient This patient is new to me today: Yes Date on this admission: 11/28/18 - Critical Care Critical Care patient: No - Discharge Referral Referred to [facility] Med P.C.: No
[2018-11-28] MEDS ORDERED: SODIUM CHLORIDE 1,000 ML IV SCH (16:00)
--- NOTE | 2018-11-28 19:16 | PN ---
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 Complaining of mild incisional pain. No leg pain. Legs feel stronger already. Dressing clean, dry, intact. Vascular: no calf nor subsartorial tenderness to palpation. Plan: Discharge home tomorrow: home versus rehab (recommend [facility]). Parish Rao MD (Orthopaedic Surgery).
[2018-11-28] MEDS ORDERED: Methylnaltrexone Bromide 12 MG/0.6 ML KIT SQ ONE (19:30)
[2018-11-28] MEDS: ATORVASTATIN CA 10 MG TABLET (FP) PO SCH (22:06)
[2018-11-29] MEDS: ACETAMINOPHEN 325 MG TABLET (FP) PO SCH ×4 (00:20→18:01)
[2018-11-29] MEDS: oxyCODONE HCL 5 MG TABLET PO SCH ×4 (00:20→18:01)
[2018-11-29] MEDS: TAMSULOSIN HCL 0.4 MG CAP PO SCH (07:56)
[2018-11-29] MEDS: POLYETHYLENE GLYCOL 3350 119 GM BTL PO SCH (09:17)
[2018-11-29] MEDS: SULFAMETHOXAZOLE/TRIMETHOPRIM 800MG/160MG D.S. TABLET PO SCH (09:17)
[2018-11-29 09:50] LABS: BASO % 0.4 % (0-2.0); EOS % 1.2 % (0-4.5); HEMATOCRIT 23.6 % (35.4-49); HEMOGLOBIN 7.7 GM/dL (11.7-16.9); LYMPH % 5.5 % (8-40); MCH 27.5 pg (25.7-33.7); MCHC 32.5 g/dl (32.0-35.9); MEAN CELL VOLUME 84.6 fl (80-96); MEAN PLT VOLUME 7.3 fl (7.5-11.1); NEUT % 86.9 % (42.8-82.8); PLATELET COUNT 377 K/MM3 (134-434); RDW 15.6 % (11.9-15.9); WHITE BLOOD COUNT 16.4 K/mm3 (4.0-10.0)
[2018-11-29 10:35] LABS: ALBUMIN 2.1 g/dl (3.4-5.0); ALK PHOS 54 U/L (45-117); ANION GAP 14 MMOL/L (8-16); BILIRUBIN,TOTAL 0.5 mg/dL (0.2-1); BLOOD UREA NITROGEN 10 mg/dL (7-18); CALCIUM 7.7 mg/dL (8.5-10.1); CHLORIDE 99 mmol/L (98-107); CO2 20 mmol/L (21-32); CREATININE 0.4 mg/dL (0.55-1.3); GLUCOSE,RANDOM 64 mg/dL (74-106); POTASSIUM 4.1 mmol/L (3.5-5.1); SGOT/AST 18 U/L (15-37); SGPT/ALT 18 U/L (13-61); SODIUM 133 mmol/L (136-145)
--- NOTE | 2018-11-29 11:04 | PN ---
Physical Exam: SUBJECTIVE: Patient seen and examined. denies abdominal pain, no nausea or vomiting. OBJECTIVE: wbc 16.4, ordered blood cultures now, then start antibiotics id consulted given relistor overnight, with apx 200cc of liquid stool output Vital Signs Period Temp Pulse Resp BP Sys/Conde Pulse Ox Last 24 Hr 97.9 F-98.5 F 80-106 18-22 108-150/57-97 99-99 GENERAL: The patient is awake, alert, and fully oriented, in no acute distress. HEAD: Normal with no signs of trauma. EYES: PERRL, extraocular movements intact, sclera anicteric, conjunctiva clear. No ptosis. ENT: Ears normal, nares patent, oropharynx clear without exudates, moist mucous membranes. NECK: Trachea midline, full range of motion, supple. LUNGS: Breath sounds equal, clear to auscultation bilaterally HEART: Regular rate and rhythm ABDOMEN: abdomen distended, soft, non tender, +bowel sounds. rectal tube fell out overnight EXTREMITIES: 2+ pulses, warm, well-perfused, no edema. NEUROLOGICAL: Normal speech, gait not observed. PSYCH: Normal mood, normal affect. SKIN: Warm, dry, normal turgor, no rashes or lesions noted Laboratory Results - last 24 hr 11/29/18 11/29/18 09:10 09:10 WBC 16.4 H RBC 2.80 L Hgb 7.7 L Hct 23.6 L MCV 84.6 MCH 27.5 MCHC 32.5 RDW 15.6 Plt Count 377 MPV 7.3 L Absolute Neuts (auto) 14.2 H Neutrophils % 86.9 H Lymphocytes % 5.5 L D Monocytes % 6.0 Eosinophils % 1.2 Basophils % 0.4 Nucleated RBC % 0 Sodium 133 L Potassium 4.1 Chloride 99 Carbon Dioxide 20 L Anion Gap 14 BUN 10 Creatinine 0.4 L Creat Clearance w eGFR 213.29 Random Glucose 64 L Calcium 7.7 L Total Bilirubin 0.5 AST 18 ALT 18 Alkaline Phosphatase 54 Total Protein 5.0 L Albumin 2.1 L Active Medications Generic Name Dose Route Start Last Admin Trade Name Freq PRN Reason Stop Dose Admin Acetaminophen 325 mg 11/24/18 13:30 11/29/18 05:56 Tylenol - PO 325 mg Q6HPO HARRY Administration Atorvastatin Calcium 10 mg 11/22/18 22:00 11/28/18 22:06 Lipitor - PO 10 mg HS HARRY Administration Docusate Sodium 100 mg 11/27/18 12:03 Colace - PO Q8H PRN CONSTIPATION Sodium Chloride 1,000 mls @ 50 mls/hr 11/28/18 16:00 11/28/18 16:04 Normal Saline - IV 11/29/18 15:55 50 mls/hr ASDIR HARRY Administration Metronidazole 500 mg in 100 mls @ 100 mls/hr 11/29/18 10:30 Flagyl 500mg Premixed Ivpb - IVPB Q6H-IV HARRY Ceftriaxone Sodium 2 gm in 50 mls @ 100 mls/hr 11/29/18 10:30 Ceftriaxone 2 Gm-D5w Bag IVPB DAILY HARRY Protocol Ondansetron HCl 4 mg 11/22/18 17:36 Zofran Injection IVPUSH Q6H PRN NAUSEA AND/OR VOMITING Oxycodone HCl 5 mg 11/24/18 13:30 11/29/18 05:57 Roxicodone - PO 5 mg Q6HPO HARRY Administration Polyethylene Glycol 17 gm 11/27/18 22:00 11/29/18 09:17 Miralax (For Daily Use) - PO 17 grams BID HARRY Administration Senna 2 tab 11/27/18 22:00 Senna - PO HS PRN CONSTIPATION Tamsulosin HCl 0.4 mg 11/23/18 08:30 11/29/18 07:56 Flomax - PO 0.4 mg DAILY@0830 HARRY Administration Trimethoprim/Sulfamethoxazole 1 each 11/23/18 10:00 11/29/18 09:17 Bactrim Ds - PO 1 each DAILY HARRY Administration ASSESSMENT/PLAN: Patient is a 68 year old male s/p lumbar stenosis with radiculopathy and claudication-laminectomies; facetectomies/osteotomies; luu-Villarreal osteotomies T12-L1, L1-L2, L3-L4; posterior instrumentation T11-S1; posterolateral arthrodesi T11-S1; bone autograft; bone allograft; bone marrow aspiration; stem cell autograft; intra-operative neural monitoring; intra- operative biplanar fluoroscopy; durotomy repair; complex wound closure (30cm) on 11/19/18. Developed abdominal distention post surgery. His other past medical history includes HTN, hyperipidemia, BPH, left upper arm weakness, Right shoulder RTC, colonscopy 5 years ago on routine basis/no masses found Imaging: abdominal xray 11/28/18: distended colon, no signs of free air. no signs of gross colonic stool retention. ct scan 11/29/2018: improved colonic distention since 11/26/18, no evidence of colonic obstruction. Surgery: s/p T11-S1 posterior fusion Care per surgery team pain management, incentive spirometer, bowel regimen encourage ambulation GI: Constipation/Colonic pseudo-obstruction s/p surgery. abdominal xray shows colonic air distention. likely secondary to narcotics, and immobilization seen and followed by GI and rectal tube placed on 11/28, but fell out overnight. total rectal tube output apx 250 of liquid stool. abdomen remains distended, but he has + bowel sounds and is not having any nausea or vomiting. GI consult for possible rectal decompression, but family and patient refusing surgical intervention. given Relistor on 11/28 and will be given another dose tonight, then on senna, colace, miralax. abdomen ct scan done today shows improvement of colonic distention, no obstruction seen. diet advanced per surgery ID: Leukocytosis. WBC increased from 12->16.4. afebrile. blood cultures ordered today prior to initiation of antibiotics. started on ceftriaxone and flagyl. ID consulted, notes reviewed. Card: Hypertension. monitor BP. Hyperlipidemia. on lipitor 10mg daily Anemia: Acute blood loss anemia: s/p 3 units of prbc. h/h stable. : BPH On Flomax fen clears, advance per gi monitor electrolytes prophy SCDs. ambulation Visit type - Emergency Visit Emergency Visit: Yes ED Registration Date: 11/19/18 Care time: The patient presented to the Emergency Department on the above date and was hospitalized for further evaluation of their emergent condition. - New Patient This patient is new to me today: No - Critical Care Critical Care patient: No - Discharge Referral Referred to [facility] Med P.C.: No
[2018-11-29] MEDS ORDERED: DEXTROSE 5%-WATER 100 ML IVPB ONE (11:54)
[2018-11-29] MEDS: CEFTRIAXONE 2 GM in DEXTROSE 5%-WATER 100 ML IVPB SCH (12:21)
--- NOTE | 2018-11-29 12:48 | PN ---
Progress Note, Physician History of Present Illness: Abdominal distension improving, rectal tube inserted with evacuation of large amount of stool. - Current Medication List Current Medications: Active Medications Acetaminophen (Tylenol -) 325 mg PO Q6HPO [facility] Last Admin: 11/29/18 12:20 Dose: 325 mg Atorvastatin Calcium (Lipitor -) 10 mg PO HS [facility] Last Admin: 11/28/18 22:06 Dose: 10 mg Docusate Sodium (Colace -) 100 mg PO Q8H PRN PRN Reason: CONSTIPATION Sodium Chloride (Normal Saline -) 1,000 mls @ 50 mls/hr IV ASDIR [facility] Stop: 11/29/18 15:55 Last Admin: 11/28/18 16:04 Dose: 50 mls/hr Metronidazole (Flagyl 500mg Premixed Ivpb -) 500 mg in 100 mls @ 100 mls/hr IVPB Q6H-IV [facility] Last Admin: 11/29/18 12:21 Dose: 100 mls/hr Ceftriaxone Sodium 2 gm/ (Dextrose) 100 mls @ 100 mls/hr IVPB DAILY [facility]; Protocol Last Admin: 11/29/18 12:21 Dose: 100 mls/hr Ondansetron HCl (Zofran Injection) 4 mg IVPUSH Q6H PRN PRN Reason: NAUSEA AND/OR VOMITING Oxycodone HCl (Roxicodone -) 5 mg PO Q6HPO [facility] Last Admin: 11/29/18 12:20 Dose: 5 mg Polyethylene Glycol (Miralax (For Daily Use) -) 17 gm PO BID [facility] Last Admin: 11/29/18 09:17 Dose: 17 grams Senna (Senna -) 2 tab PO HS PRN PRN Reason: CONSTIPATION Tamsulosin HCl (Flomax -) 0.4 mg PO DAILY@0830 [facility] Last Admin: 11/29/18 07:56 Dose: 0.4 mg Trimethoprim/Sulfamethoxazole (Bactrim Ds -) 1 each PO DAILY [facility] Last Admin: 11/29/18 09:17 Dose: 1 each - Objective Vital Signs: Vital Signs Temperature 98.5 F 11/29/18 10:00 Pulse Rate 82 11/29/18 10:00 Respiratory Rate 20 11/29/18 10:00 Blood Pressure 150/81 11/29/18 10:00 O2 Sat by Pulse Oximetry (%) 99 11/29/18 09:00 Constitutional: Yes: No Distress, Calm Neck: Yes: Supple Cardiovascular: Yes: Regular Rate and Rhythm Respiratory: Yes: Regular, Diminished Gastrointestinal: Yes: Soft, Hypoactive Bowel Sounds Genitourinary: Yes: Gomez Present Edema: No Labs: CBC, BMP 11/29/18 09:10 11/29/18 09:10 INR, PTT INR 1.07 (0.83-1.09) 11/20/18 05:30 Problem List - Problems (1) Pseudoobstruction of colon Code(s): K59.8 - OTHER SPECIFIED FUNCTIONAL INTESTINAL DISORDERS Assessment/Plan Problem List - Problems (1) HTN (hypertension) Code(s): I10 - ESSENTIAL (PRIMARY) HYPERTENSION Qualifiers: Hypertension type: essential hypertension Qualified Code(s): I10 - Essential (primary) hypertension (2) Hyperlipidemia Code(s): E78.5 - HYPERLIPIDEMIA, UNSPECIFIED Qualifiers: Hyperlipidemia type: pure hypercholesterolemia Qualified Code(s): E78.00 - Pure hypercholesterolemia, unspecified; E78.0 - Pure hypercholesterolemia (3) Hypotension after procedure Code(s): I95.81 - POSTPROCEDURAL HYPOTENSION (4) S/P spinal surgery Code(s): Z98.890 - OTHER SPECIFIED POSTPROCEDURAL STATES 11/21/2018 Normal LV size and fxn, poor acoustic windows preclude valve eval 1. Lumbar Stenosis with radiculopathy and claudication 2. s/p T12-S1 Laminectomies/Posterior Instrumentation/Arthrodesis/Durotomy Repair 3. Acute Blood Loss Anemia 4. Hypovolemic Shock 6. Lactic Acidosis 7. +Troponins likely Demand Ischemia 8. s/p Acute Respiratory Failure 9. Hypercholesterolemia 10. Colon pseudoobstruction P: 1. Monitor H/H and transfuse as needed 2. Minimize opiate use with bowel regimen, rectal tube management, f/u repeat abd/pelvic CT 3. Ambulate, PT as tolerated->SNF 4. DVT prophylaxis
--- NOTE | 2018-11-29 14:02 | PN.GI ---
GI Progress Note Subjective: No acute events Received relistor last night, had liquid BM's Denies abdominal pain - Objective Vital Signs: Vital Signs Temperature 98.5 F 11/29/18 10:00 Pulse Rate 82 11/29/18 10:00 Respiratory Rate 20 11/29/18 10:00 Blood Pressure 150/81 11/29/18 10:00 O2 Sat by Pulse Oximetry (%) 99 11/29/18 09:00 Constitutional: Calm Eyes: No: Sclera Icterus Cardiovascular: Yes: Regular Rate and Rhythm Respiratory: Yes: Diminished (at bases bilaterally with poor insp effort) Gastrointestinal Inspection: Yes: Distention (mildly protuberant abdomen) ...Auscultate: Yes: Normoactive Bowel Sounds ...Palpate: Yes: Soft. No: Tenderness Edema: No (No LE edema) Labs: CBC, BMP 11/29/18 09:10 11/29/18 09:10 INR, PTT INR 1.07 (0.83-1.09) 11/20/18 05:30 Problem List - Problems (1) Pseudoobstruction of colon Assessment/Plan: CT scan with improved colonic distention with thickening of the transverse colon. Asymptomatic, denying abdominal pain Resolving acute colonic pseudoobstruction. Suspect the thickened sigmoid colon reflecting sequela of the transverse / proximal colonic distention Check stool for C. Diff Can redose relistor this evening then resume prior bowel regimen of MiraLAX 17g BID Minimize opiate analgesia as feasible and encougage ambulation If recurrence of pseudoobstruction, trial of neostigmine in ICU setting giving possibility of bronchospasm / bradycardia Leukocytosis being evaluated by primary team. ID consulted, IV abx initiated Code(s): K59.8 - OTHER SPECIFIED FUNCTIONAL INTESTINAL DISORDERS
[2018-11-29] MEDS ORDERED: PT OWN MED DRAWER 7, Y5N ONE (16:15)
--- NOTE | 2018-11-29 17:00 | CONS ---
DATE OF CONSULTATION: DATE OF DICTATION: 11/29/2018 INFECTIOUS DISEASE CONSULTATION HISTORY OF PRESENT ILLNESS: The patient is a 68-year-old male who is evaluated for leukocytosis. 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 He was admitted to the hospital on November 19, 2018, for an elective laminectomy. He has a history of severe thoracolumbar stenosis. The patient underwent a T12-S1 laminectomy with bone allograft. He received perioperative cephazolin. He is presently postoperative day number 10. His clinical course was complicated by hypotension, anemia, and worsening abdominal distention. He required a transfusion of packed red blood cells. CAT scan showed evidence of dilated bowel and possible colitis of the transverse colon. He was seen in consultation by GI and felt to have a pseudoobstruction. Patient clinically improved with conservative measures. He is now noted to have a white blood cell count of 16.4. He is awake and alert. He has no focal complaint. He denies any back pain. No complaints of chest pain, shortness of breath, cough, or sputum production. He has a Gomez catheter in place. Reports having a soft bowel movement this morning. No reports of diarrhea. No complaints of calf tenderness. 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 He has since been on chronic suppressive therapy with Bactrim double strength daily. Past medical history also positive for coronary artery disease, hypertension, BPH. ALLERGIES: No known allergies. MEDICATION: Aspirin, Plavix, losartan, Toprol, Flomax. SOCIAL HISTORY: Lives at home in the community. No documented tobacco or alcohol use. SYSTEMS REVIEW: Neurologic: No loss of consciousness, seizure activity, focal weakness. Cardiac: Negative for chest pain or palpitations. Respiratory: Negative for cough or sputum production. Gastrointestinal: Negative vomiting or diarrhea. Positive for pseudoobstruction. Genitourinary: Positive for indwelling Gomez catheter. LABORATORY DATA: White count 16.4, hematocrit 23.6, platelets 377, creatinine 0.4, blood cultures pending. PHYSICAL EXAMINATION: General: On exam, he is awake and alert, in no acute distress. Vital signs: Temperature 98.5, blood pressure 150/81, pulse 82 regular, respirations 20 per minute. HEENT: Sclerae anicteric. Cardiovascular: Heart sounds S1, S2. Lungs: Clear bilaterally. Diminished breath sounds at the bases. Abdomen: Distended. Soft, nontender. Tympanitic. Extremities: Negative for edema. Negative Homans sign. Surgical dressing is in place over his laminectomy wound. IMPRESSION: 1. Leukocytosis, unclear etiology. 2. Postoperative day number 10, laminectomy for severe thoracolumbar stenosis. 3. Pseudoobstruction, now resolved. Source of leukocytosis not clear, may represent leukemoid reaction. CAT scans reviewed. There does appear to be thickening of the transverse colon, possible colitis. Await cultures. Would empirically continue bowel coverage with ceftriaxone and Flagyl. Will not order stool studies, as patient not having diarrhea. Repeat CBC in a.m. Await blood culture results. GI followup. Case discussed with patient's brother present at the time of the examination. Thank you for the kind referral. TREVA CARLOS M.D. SELMA/[id number]
[2018-11-29 17:43] LABS: BASO % 0.5 % (0-2.0); EOS % 1.4 % (0-4.5); HEMATOCRIT 24.9 % (35.4-49); MCH 27.6 pg (25.7-33.7); MCHC 32.3 g/dl (32.0-35.9); MEAN CELL VOLUME 85.6 fl (80-96); MEAN PLT VOLUME 7.4 fl (7.5-11.1); MONO % 5.7 % (3.8-10.2); NEUT % 86.4 % (42.8-82.8); PLATELET COUNT 388 K/MM3 (134-434); RBC 2.91 M/mm3 (4.00-5.60); RDW 15.2 % (11.9-15.9); WHITE BLOOD COUNT 17.2 K/mm3 (4.0-10.0)
[2018-11-29 18:17] LABS: ANISOCYTOSIS 2+; MACROCYTOSIS 2+; PLATELET ESTIMATE ADEQUATE
--- NOTE | 2018-11-29 19:16 | PN ---
Progress Note (short form) - Note Progress Note: ID CONSULT DICTATED LEUKOCYTOSIS R/O INFECTIOUS ETIOLOGY PSEUDO-OBSTRUCTION RESOLVED HX CHRONICALLY INFECTED ORTHOPEDIC HARDWARE AWAIT C/S CONTINUE CEFTRIAXONE/ FLAGYL CONTINUE CHRONIC SUPPRESSIVE ANTIBIOTIC THERAPY WITH BACTRIM
[2018-11-29] MEDS ORDERED: Methylnaltrexone Bromide 12 MG/0.6 ML KIT SQ ONE (20:00)
[2018-11-29] MEDS: ATORVASTATIN CA 10 MG TABLET (FP) PO SCH (21:38)
[2018-11-30] MEDS: oxyCODONE HCL 5 MG TABLET PO SCH ×4 (00:15→17:45)
[2018-11-30] MEDS: ACETAMINOPHEN 325 MG TABLET (FP) PO SCH ×4 (00:16→17:46)
[2018-11-30 07:10] LABS: BASO % 0.4 % (0-2.0); EOS % 1.6 % (0-4.5); HEMATOCRIT 23.7 % (35.4-49); HEMOGLOBIN 7.7 GM/dL (11.7-16.9); LYMPH % 5.8 % (8-40); MCH 27.6 pg (25.7-33.7); MCHC 32.7 g/dl (32.0-35.9); MEAN CELL VOLUME 84.4 fl (80-96); MEAN PLT VOLUME 7.2 fl (7.5-11.1); MONO % 6.7 % (3.8-10.2); NEUT % 85.5 % (42.8-82.8); PLATELET COUNT 403 K/MM3 (134-434); RDW 15.4 % (11.9-15.9); WHITE BLOOD COUNT 15.1 K/mm3 (4.0-10.0)
[2018-11-30 07:40] LABS: ALBUMIN 2.1 g/dl (3.4-5.0); ALK PHOS 61 U/L (45-117); ANION GAP 10 MMOL/L (8-16); BILIRUBIN,TOTAL 0.4 mg/dL (0.2-1); BLOOD UREA NITROGEN 7 mg/dL (7-18); CALCIUM 7.5 mg/dL (8.5-10.1); CHLORIDE 100 mmol/L (98-107); CO2 25 mmol/L (21-32); CREATININE 0.5 mg/dL (0.55-1.3); GLUCOSE,RANDOM 94 mg/dL (74-106); MAGNESIUM 1.8 mg/dL (1.8-2.4); POTASSIUM 4.1 mmol/L (3.5-5.1); SGOT/AST 19 U/L (15-37); SGPT/ALT 16 U/L (13-61); SODIUM 134 mmol/L (136-145)
[2018-11-30] MEDS: TAMSULOSIN HCL 0.4 MG CAP PO SCH (08:09)
[2018-11-30] MEDS ORDERED: DEXTROSE 5%-WATER 100 ML IVPB ONE (09:06)
[2018-11-30] MEDS: CEFTRIAXONE 2 GM in DEXTROSE 5%-WATER 100 ML IVPB SCH (09:20)
[2018-11-30] MEDS: SULFAMETHOXAZOLE/TRIMETHOPRIM 800MG/160MG D.S. TABLET PO SCH (09:20)
--- NOTE | 2018-11-30 10:42 | PN ---
Progress Note, Physician History of Present Illness: Abdominal distension improving, rectal tube removed, passing stools. - Current Medication List Current Medications: Active Medications Acetaminophen (Tylenol -) 325 mg PO Q6HPO [facility] Last Admin: 11/30/18 05:25 Dose: 325 mg Atorvastatin Calcium (Lipitor -) 10 mg PO HS [facility] Last Admin: 11/29/18 21:38 Dose: 10 mg Metronidazole (Flagyl 500mg Premixed Ivpb -) 500 mg in 100 mls @ 100 mls/hr IVPB Q6H-IV [facility] Last Admin: 11/30/18 08:43 Dose: 100 mls/hr Ceftriaxone Sodium 2 gm/ (Dextrose) 100 mls @ 100 mls/hr IVPB DAILY [facility]; Protocol Last Admin: 11/30/18 09:20 Dose: 100 mls/hr Ondansetron HCl (Zofran Injection) 4 mg IVPUSH Q6H PRN PRN Reason: NAUSEA AND/OR VOMITING Oxycodone HCl (Roxicodone -) 5 mg PO Q6HPO [facility] Last Admin: 11/30/18 05:25 Dose: 5 mg Tamsulosin HCl (Flomax -) 0.4 mg PO DAILY@0830 [facility] Last Admin: 11/30/18 08:09 Dose: 0.4 mg Trimethoprim/Sulfamethoxazole (Bactrim Ds -) 1 each PO DAILY [facility] Last Admin: 11/30/18 09:20 Dose: 1 each - Objective Vital Signs: Vital Signs Temperature 98.1 F 11/30/18 06:16 Pulse Rate 79 11/30/18 06:16 Respiratory Rate 20 11/30/18 06:16 Blood Pressure 129/72 11/30/18 06:16 O2 Sat by Pulse Oximetry (%) 99 11/29/18 21:00 Constitutional: Yes: No Distress, Calm Neck: Yes: Supple Cardiovascular: Yes: Regular Rate and Rhythm Respiratory: Yes: Regular, CTA Bilaterally Gastrointestinal: Yes: Soft, Hypoactive Bowel Sounds Edema: No Labs: CBC, BMP 11/30/18 06:00 11/30/18 06:00 INR, PTT INR 1.07 (0.83-1.09) 11/20/18 05:30 - ....Imaging Cat Scan: Report Reviewed (Improved colonic distension) Problem List - Problems (1) Pseudoobstruction of colon Code(s): K59.8 - OTHER SPECIFIED FUNCTIONAL INTESTINAL DISORDERS Assessment/Plan Problem List - Problems (1) HTN (hypertension) Code(s): I10 - ESSENTIAL (PRIMARY) HYPERTENSION Qualifiers: Hypertension type: essential hypertension Qualified Code(s): I10 - Essential (primary) hypertension (2) Hyperlipidemia Code(s): E78.5 - HYPERLIPIDEMIA, UNSPECIFIED Qualifiers: Hyperlipidemia type: pure hypercholesterolemia Qualified Code(s): E78.00 - Pure hypercholesterolemia, unspecified; E78.0 - Pure hypercholesterolemia (3) Hypotension after procedure Code(s): I95.81 - POSTPROCEDURAL HYPOTENSION (4) S/P spinal surgery Code(s): Z98.890 - OTHER SPECIFIED POSTPROCEDURAL STATES 11/21/2018 Normal LV size and fxn, poor acoustic windows preclude valve eval 1. Lumbar Stenosis with radiculopathy and claudication 2. s/p T12-S1 Laminectomies/Posterior Instrumentation/Arthrodesis/Durotomy Repair 3. Acute Blood Loss Anemia 4. Hypovolemic Shock 6. Lactic Acidosis 7. +Troponins likely Demand Ischemia 8. s/p Acute Respiratory Failure 9. Hypercholesterolemia 10. Colon pseudoobstruction resolving 11. Lekocytosis r/o infectious etiology P: 1. Monitor H/H and transfuse as needed 2. Minimize opiate use with bowel regimen, rectal tube management 3. Ambulate, PT as tolerated 4. DVT prophylaxis 5. Empiric abx course per ID
--- NOTE | 2018-11-30 12:32 | PN.GI ---
GI Progress Note Subjective: No acute events States feeling well Denies abdominal pain Being trialed with back brace toda No BM today Received relistor last night - Objective Vital Signs: Vital Signs Temperature 98 F 11/30/18 10:00 Pulse Rate 79 11/30/18 10:00 Respiratory Rate 18 11/30/18 10:00 Blood Pressure 138/77 11/30/18 10:00 O2 Sat by Pulse Oximetry (%) 96 11/30/18 09:00 Constitutional: Calm Eyes: No: Sclera Icterus Cardiovascular: Yes: Regular Rate and Rhythm Respiratory: Yes: CTA Bilaterally Gastrointestinal Inspection: Yes: Distention ...Auscultate: Yes: Hyperactive Bowel Sounds ...Palpate: No: Hepatomegaly, Tenderness ...Percussion: Yes: Tympanitic Edema: No (No LE edema) Neurological: Yes: Alert Labs: CBC, BMP 11/30/18 06:00 11/30/18 06:00 INR, PTT INR 1.07 (0.83-1.09) 11/20/18 05:30 Problem List - Problems (1) Pseudoobstruction of colon Assessment/Plan: No abdominal pain with improvement in bowel distention on CT scan yesterday. Still tympanitic on exam Ordered FUA for today. If progressive distention of proximal bowel, will need to consider neostigmine therapy Code(s): K59.8 - OTHER SPECIFIED FUNCTIONAL INTESTINAL DISORDERS
--- NOTE | 2018-11-30 12:53 | PN ---
Physical Exam: SUBJECTIVE: Patient seen and examined at the bedside. no nausea/no vomiting, did not have bm overnight. passing gas. OBJECTIVE: abdomen less distended today, + bowel sounds, soft for abdominal xray today on clears per GI Vital Signs Period Temp Pulse Resp BP Sys/Conde Pulse Ox Last 24 Hr 98 F-98.1 F 79-83 18-20 124-138/69-77 96-99 GENERAL: The patient is awake, alert, and fully oriented, in no acute distress. HEAD: Normal with no signs of trauma. EYES: PERRL, extraocular movements intact, sclera anicteric, conjunctiva clear. No ptosis. ENT: Ears normal, nares patent, oropharynx clear without exudates, moist mucous membranes. NECK: Trachea midline, full range of motion, supple. LUNGS: Breath sounds equal, clear to auscultation bilaterally HEART: Regular rate and rhythm ABDOMEN: abdomen distended, soft, non tender, +bowel sounds. no bm today. EXTREMITIES: 2+ pulses, warm, well-perfused, no edema. NEUROLOGICAL: Normal speech, gait not observed. PSYCH: Normal mood, normal affect. SKIN: Warm, dry, normal turgor, no rashes or lesions noted Laboratory Results - last 24 h 11/29/18 11/30/18 11/30/18 17:00 06:00 06:00 WBC 17.2 H 15.1 H RBC 2.91 L 2.80 L Hgb 8.0 L 7.7 L Hct 24.9 L 23.7 L MCV 85.6 84.4 MCH 27.6 27.6 MCHC 32.3 32.7 RDW 15.2 15.4 Plt Count 388 403 MPV 7.4 L 7.2 L Absolute Neuts (auto) 14.8 H 12.9 H Neutrophils % 86.4 H 85.5 H Neutrophils % (Manual) 80.0 Band Neutrophils % 8.0 Lymphocytes % 6.0 L 5.8 L Lymphocytes % (Manual) 7.0 L D Monocytes % 5.7 6.7 Monocytes % (Manual) 5 Eosinophils % 1.4 1.6 Basophils % 0.5 0.4 Nucleated RBC % 0 0 Hypochromia 1+ Platelet Estimate Adequate Platelet Comment Slt plt clumping Polychromasia 1+ Anisocytosis 2+ Macrocytosis 2+ Sodium 134 L Potassium 4.1 Chloride 100 Carbon Dioxide 25 Anion Gap 10 BUN 7 Creatinine 0.5 L Creat Clearance w eGFR 164.87 Random Glucose 94 Calcium 7.5 L Magnesium 1.8 Total Bilirubin 0.4 AST 19 ALT 16 Alkaline Phosphatase 61 Total Protein 5.0 L Albumin 2.1 L Active Medications Generic Name Dose Route Start Last Admin Trade Name Freq PRN Reason Stop Dose Admin Acetaminophen 325 mg 11/24/18 13:30 11/30/18 12:01 Tylenol - PO 325 mg Q6HPO HARRY Administration Atorvastatin Calcium 10 mg 11/22/18 22:00 11/29/18 21:38 Lipitor - PO 10 mg HS HARRY Administration Metronidazole 500 mg in 100 mls @ 100 mls/hr 11/29/18 11:30 11/30/18 08:43 Flagyl 500mg Premixed Ivpb - IVPB 100 mls/hr Q6H-IV HARRY Administration Ceftriaxone Sodium 2 gm/ 100 mls @ 100 mls/hr 11/29/18 11:20 11/30/18 09:20 Dextrose IVPB 100 mls/hr DAILY HARRY Administration Protocol Ondansetron HCl 4 mg 11/22/18 17:36 Zofran Injection IVPUSH Q6H PRN NAUSEA AND/OR VOMITING Oxycodone HCl 5 mg 11/24/18 13:30 11/30/18 12:00 Roxicodone - PO 5 mg Q6HPO HARRY Administration Tamsulosin HCl 0.4 mg 11/23/18 08:30 11/30/18 08:09 Flomax - PO 0.4 mg DAILY@0830 HARRY Administration Trimethoprim/Sulfamethoxazole 1 each 11/23/18 10:00 11/30/18 09:20 Bactrim Ds - PO 1 each DAILY HARRY Administration ASSESSMENT/PLAN: Patient is a 68 year old male s/p lumbar stenosis with radiculopathy and claudication-laminectomies; facetectomies/osteotomies; luu-Villarreal osteotomies T12-L1, L1-L2, L3-L4; posterior instrumentation T11-S1; posterolateral arthrodesi T11-S1; bone autograft; bone allograft; bone marrow aspiration; stem cell autograft; intra-operative neural monitoring; intra- operative biplanar fluoroscopy; durotomy repair; complex wound closure (30cm) on 11/19/18. Developed abdominal distention post surgery. His other past medical history includes HTN, hyperipidemia, BPH, left upper arm weakness, Right shoulder RTC, colonscopy 5 years ago on routine basis/no masses found Imaging: abdominal xray 11/28/18: distended colon, no signs of free air. no signs of gross colonic stool retention. ct scan 11/29/2018: improved colonic distention since 11/26/18, no evidence of colonic obstruction. Surgery: s/p T11-S1 posterior fusion Care per surgery team pain management, incentive spirometer, bowel regimen encourage ambulation GI: Constipation/Colonic pseudo-obstruction s/p surgery. abdominal xray shows colonic air distention. likely secondary to narcotics, and immobilization. seen and followed by GI and rectal tube placed on 11/28, but fell out overnight. total rectal tube output apx 250 of liquid stool. abdomen now less distended, has + bowel sounds and is not having any nausea or vomiting. GI following for possible rectal decompression, but family and patient refusing surgical intervention. given Relistor on 11/28 and 11/29. Now on senna, colace, miralax. abdomen ct scan shows improvement of colonic distention, no obstruction seen. diet advanced per surgery for repeat abdomen xray today ID: Leukocytosis. WBC 12->16.4>15. afebrile. blood cultures ordered today prior to initiation of antibiotics. started on ceftriaxone and flagyl. ID consulted and following. Card: Hypertension. monitor BP. Hyperlipidemia. on lipitor 10mg daily Anemia: Acute blood loss anemia: s/p 3 units of prbc. h/h stable but on the lower end today. He is asymptomatic. Will monitor CBC, if hmg falls below 7, will transfuse. : BPH. On Flomax fen clears, advance per gi monitor electrolytes prophy SCDs. ambulation Visit type - Emergency Visit Emergency Visit: Yes ED Registration Date: 11/19/18 Care time: The patient presented to the Emergency Department on the above date and was hospitalized for further evaluation of their emergent condition. - New Patient This patient is new to me today: No - Critical Care Critical Care patient: No - Discharge Referral Referred to [facility] Med P.C.: No
--- NOTE | 2018-11-30 17:50 | PN ---
Progress Note (short form) - Note Progress Note: Feeling well Walked in the hallway Legs feel heavy due to the severe spinal stenosis now decompressed. Muscle and leg strength will recover in time. Problem Ogilivie Syndrome still persists. Belly soft but distended (gaseous PLAN [employer] [facility] GI will eventually settle D/C planning
[2018-11-30] MEDS ORDERED: Methylnaltrexone Bromide 12 MG/0.6 ML KIT SQ ONE (18:45)
--- NOTE | 2018-11-30 20:06 | PN ---
Progress Note, Physician History of Present Illness: AWAKE,ALERT NO COMPLAINTS NO C/O FEVER/ CHILLS WBC IMPROVED C/S NO GROWTH - Current Medication List Current Medications: Active Medications Acetaminophen (Tylenol -) 325 mg PO Q6HPO [facility] Last Admin: 11/30/18 17:46 Dose: 325 mg Atorvastatin Calcium (Lipitor -) 10 mg PO HS [facility] Last Admin: 11/29/18 21:38 Dose: 10 mg Metronidazole (Flagyl 500mg Premixed Ivpb -) 500 mg in 100 mls @ 100 mls/hr IVPB Q6H-IV [facility] Last Admin: 11/30/18 15:33 Dose: 100 mls/hr Ceftriaxone Sodium 2 gm/ (Dextrose) 100 mls @ 100 mls/hr IVPB DAILY [facility]; Protocol Last Admin: 11/30/18 09:20 Dose: 100 mls/hr Ondansetron HCl (Zofran Injection) 4 mg IVPUSH Q6H PRN PRN Reason: NAUSEA AND/OR VOMITING Oxycodone HCl (Roxicodone -) 5 mg PO Q6HPO [facility] Last Admin: 11/30/18 17:45 Dose: 5 mg Senna (Senna -) 2 tab PO [facility] Tamsulosin HCl (Flomax -) 0.4 mg PO DAILY@0830 [facility] Last Admin: 11/30/18 08:09 Dose: 0.4 mg Trimethoprim/Sulfamethoxazole (Bactrim Ds -) 1 each PO DAILY [facility] Last Admin: 11/30/18 09:20 Dose: 1 each - Objective Vital Signs: Vital Signs Temperature 98.3 F 11/30/18 17:04 Pulse Rate 79 11/30/18 17:04 Respiratory Rate 18 11/30/18 17:04 Blood Pressure 114/69 11/30/18 17:04 O2 Sat by Pulse Oximetry (%) 96 11/30/18 09:00 Constitutional: Yes: No Distress Cardiovascular: Yes: Regular Rate and Rhythm, S1, S2 Respiratory: Yes: CTA Bilaterally Gastrointestinal: Yes: Normal Bowel Sounds, Soft, Other (SL DISTENDED, SOFT NON TENDER) Edema: No Labs: CBC, BMP 11/30/18 06:00 11/30/18 06:00 INR, PTT INR 1.07 (0.83-1.09) 11/20/18 05:30 Assessment/Plan LEUKOCYTOSIS PSEUDO-OBSTRUCTION S/P LAMINECTOMY AWAIT C/S REPEAT CBC CONTINUE EMPIRIC CEFTRIAXONE/ FLAGYL DISCUSSED WITH BROTHER
[2018-11-30] MEDS: ATORVASTATIN CA 10 MG TABLET (FP) PO SCH (22:40)
[2018-12-01] MEDS: ACETAMINOPHEN 325 MG TABLET (FP) PO SCH ×5 (00:49→23:54)
[2018-12-01] MEDS: oxyCODONE HCL 5 MG TABLET PO SCH ×3 (00:50→13:03)
[2018-12-01 09:02] LABS: EOS % 3.1 % (0-4.5); HEMATOCRIT 24.8 % (35.4-49); HEMOGLOBIN 8.2 GM/dL (11.7-16.9); LYMPH % 8.1 % (8-40); MCH 27.9 pg (25.7-33.7); MCHC 32.9 g/dl (32.0-35.9); MEAN PLT VOLUME 7.3 fl (7.5-11.1); MONO % 7.3 % (3.8-10.2); NEUT % 80.5 % (42.8-82.8); PLATELET COUNT 438 K/MM3 (134-434); RBC 2.92 M/mm3 (4.00-5.60); RDW 15.3 % (11.9-15.9); WHITE BLOOD COUNT 9.9 K/mm3 (4.0-10.0)
[2018-12-01 09:37] LABS: ALBUMIN 2.2 g/dl (3.4-5.0); ALK PHOS 60 U/L (45-117); ANION GAP 8 MMOL/L (8-16); BILIRUBIN,TOTAL 0.4 mg/dL (0.2-1); BLOOD UREA NITROGEN 6 mg/dL (7-18); CALCIUM 7.8 mg/dL (8.5-10.1); CHLORIDE 103 mmol/L (98-107); CO2 27 mmol/L (21-32); CREATININE 0.5 mg/dL (0.55-1.3); GLUCOSE,RANDOM 105 mg/dL (74-106); POTASSIUM 4.6 mmol/L (3.5-5.1); SGOT/AST 16 U/L (15-37); SGPT/ALT 15 U/L (13-61); SODIUM 138 mmol/L (136-145)
[2018-12-01] MEDS ORDERED: DEXTROSE 5%-WATER 100 ML IVPB ONE (10:22)
[2018-12-01] MEDS: CEFTRIAXONE 2 GM in DEXTROSE 5%-WATER 100 ML IVPB SCH (10:54)
[2018-12-01] MEDS: TAMSULOSIN HCL 0.4 MG CAP PO SCH (10:54)
[2018-12-01] MEDS: SULFAMETHOXAZOLE/TRIMETHOPRIM 800MG/160MG D.S. TABLET PO SCH (10:55)
[2018-12-01 11:05] LABS: ANISOCYTOSIS 0; MACROCYTOSIS 0; PLATELET ESTIMATE NORMAL
--- NOTE | 2018-12-01 11:35 | PN ---
Progress Note, Physician History of Present Illness: OOB IN CHAIR AWAKE,ALERT NO COMPLAINTS NO ABDOMINAL PAIN + SOFT BM TODAY TOLERATING LIQUIDS NO C/O FEVER/ CHILLS WBC WNL C/S NO GROWTH - Current Medication List Current Medications: Active Medications Acetaminophen (Tylenol -) 325 mg PO Q6HPO [facility] Last Admin: 12/01/18 06:04 Dose: 325 mg Atorvastatin Calcium (Lipitor -) 10 mg PO HS [facility] Last Admin: 11/30/18 22:40 Dose: 10 mg Metronidazole (Flagyl 500mg Premixed Ivpb -) 500 mg in 100 mls @ 100 mls/hr IVPB Q6H-IV [facility] Last Admin: 12/01/18 10:53 Dose: 100 mls/hr Ceftriaxone Sodium 2 gm/ (Dextrose) 100 mls @ 100 mls/hr IVPB DAILY [facility]; Protocol Last Admin: 12/01/18 10:54 Dose: 100 mls/hr Ondansetron HCl (Zofran Injection) 4 mg IVPUSH Q6H PRN PRN Reason: NAUSEA AND/OR VOMITING Oxycodone HCl (Roxicodone -) 5 mg PO Q6HPO [facility] Last Admin: 12/01/18 06:05 Dose: 5 mg Senna (Senna -) 2 tab PO [facility] Tamsulosin HCl (Flomax -) 0.4 mg PO DAILY@0830 [facility] Last Admin: 12/01/18 10:54 Dose: 0.4 mg Trimethoprim/Sulfamethoxazole (Bactrim Ds -) 1 each PO DAILY [facility] Last Admin: 12/01/18 10:55 Dose: 1 each - Objective Vital Signs: Vital Signs Temperature 97.4 F L 12/01/18 09:46 Pulse Rate 76 12/01/18 09:46 Respiratory Rate 18 12/01/18 09:46 Blood Pressure 138/78 12/01/18 09:46 O2 Sat by Pulse Oximetry (%) 96 11/30/18 09:00 Constitutional: Yes: No Distress, Obese Eyes: Yes: Conjunctiva Clear Cardiovascular: Yes: Regular Rate and Rhythm, S1, S2 Respiratory: Yes: CTA Bilaterally Gastrointestinal: Yes: Normal Bowel Sounds, Soft. No: Tenderness Labs: CBC, BMP 12/01/18 08:45 12/01/18 08:45 INR, PTT INR 1.07 (0.83-1.09) 11/20/18 05:30 Assessment/Plan LEUKOCYTOSIS RESOLVED PSEUDO-OBSTRUCTION RESOLVED S/P LAMINECTOMY AFEBRILE WBC WNL CULTURES NEGATIVE D/C ANTIBIOTICS, OBSERVE OFF
--- NOTE | 2018-12-01 13:14 | PN ---
Physical Exam: SUBJECTIVE: Patient seen and examined at the bedside. ambulated with PT today using back brace reports feeling well no abdominal pain, no nausea or vomiting had 2 bms overnight, soft. he feels better today OBJECTIVE: wbc wnl and iv antibiotics stopped per id blood cultures negative on full liquid diet Vital Signs Period Temp Pulse Resp BP Sys/Conde Pulse Ox Last 24 Hr 97.4 F-98.3 F 74-79 18-20 114-141/66-79 GENERAL: The patient is awake, alert, and fully oriented, in no acute distress. HEAD: Normal with no signs of trauma. EYES: PERRL, extraocular movements intact, sclera anicteric, conjunctiva clear. No ptosis. ENT: Ears normal, nares patent, oropharynx clear without exudates, moist mucous membranes. NECK: Trachea midline, full range of motion, supple. LUNGS: Breath sounds equal, clear to auscultation bilaterally HEART: Regular rate and rhythm ABDOMEN: abdomen distended, soft, non tender, +bowel sounds. no bm today. EXTREMITIES: 2+ pulses, warm, well-perfused, no edema. NEUROLOGICAL: Normal speech, gait not observed. PSYCH: Normal mood, normal affect. SKIN: Warm, dry, normal turgor, no rashes or lesions noted Laboratory Results - last 24 hr 11/27/18 12/01/18 12/01/18 10:29 08:45 08:45 WBC 9.9 RBC 2.92 L Hgb 8.2 L Hct 24.8 L MCV 85.0 MCH 27.9 MCHC 32.9 RDW 15.3 Plt Count 438 H MPV 7.3 L Absolute Neuts (auto) 7.9 Neutrophils % 80.5 Neutrophils % (Manual) 83.9 H Band Neutrophils % 2.0 Lymphocytes % 8.1 D Lymphocytes % (Manual) 7.1 L Monocytes % 7.3 Monocytes % (Manual) 1 L Eosinophils % 3.1 D Eosinophils % (Manual) 2.0 Basophils % 1.0 Basophils % (Manual) 3.0 H D Myelocytes % (Man) 1 D Promyelocytes % (Man) 0 Blast Cells % (Manual) 0 Nucleated RBC % 0 Metamyelocytes 0 Hypochromia 0 Platelet Estimate Normal Polychromasia 0 Poikilocytosis 0 Anisocytosis 0 Microcytosis 0 Macrocytosis 0 Stomatocytes 1+ Sodium 138 Potassium 4.6 Chloride 103 Carbon Dioxide 27 Anion Gap 8 BUN 6 L Creatinine 0.5 L Creat Clearance w eGFR 164.87 Random Glucose 105 Calcium 7.8 L Total Bilirubin 0.4 AST 16 ALT 15 Alkaline Phosphatase 60 Total Protein 5.0 L Albumin 2.2 L Crossmatch See Detail Active Medications Generic Name Dose Route Start Last Admin Trade Name Freq PRN Reason Stop Dose Admin Acetaminophen 325 mg 11/24/18 13:30 12/01/18 13:02 Tylenol - PO 325 mg Q6HPO [facility]ARRY Administration Atorvastatin Calcium 10 mg 11/22/18 22:00 11/30/18 22:40 Lipitor - PO 10 mg HS [facility]ARRY Administration Ondansetron HCl 4 mg 11/22/18 17:36 Zofran Injection IVPUSH Q6H PRN NAUSEA AND/OR VOMITING Oxycodone HCl 5 mg 11/24/18 13:30 12/01/18 13:03 Roxicodone - PO 5 mg Q6HPO [facility]ARRY Administration Senna 2 tab 12/01/18 22:00 Senna - PO HS [facility]ARRY Tamsulosin HCl 0.4 mg 11/23/18 08:30 12/01/18 10:54 Flomax - PO 0.4 mg DAILY@0830 [facility]ARRY Administration Trimethoprim/Sulfamethoxazole 1 each 11/23/18 10:00 12/01/18 10:55 Bactrim Ds - PO 1 each DAILY [facility]ARRY Administration ASSESSMENT/PLAN: Patient is a 68 year old male s/p lumbar stenosis with radiculopathy and claudication-laminectomies; facetectomies/osteotomies; luu-Villarreal osteotomies T12-L1, L1-L2, L3-L4; posterior instrumentation T11-S1; posterolateral arthrodesi T11-S1; bone autograft; bone allograft; bone marrow aspiration; stem cell autograft; intra-operative neural monitoring; intra- operative biplanar fluoroscopy; durotomy repair; complex wound closure (30cm) on 11/19/18. Developed abdominal distention post surgery. His other past medical history includes HTN, hyperipidemia, BPH, left upper arm weakness, Right shoulder RTC, colonscopy 5 years ago on routine basis/no masses found Imaging: abdominal xray 11/28/18: distended colon, no signs of free air. no signs of gross colonic stool retention. ct scan 11/29/2018: improved colonic distention since 11/26/18, no evidence of colonic obstruction. Surgery: s/p T11-S1 posterior fusion Care per surgery team pain management, incentive spirometer, bowel regimen encourage ambulation with back brace. d/c to rehab once cleared by gi. GI: Constipation/Colonic pseudo-obstruction s/p surgery. resolving abdomen soft, less distended, +bowel sounds, no nausea or vomiting. passing gas and tolerating diet. on full liquids. having soft stools ID: Leukocytosis. WBC 12->16.4>15>9.9. afebrile. antibiotics stopped by ID as blood cultures are negative. Card: Hypertension: controlled Hyperlipidemia: on lipitor 10mg daily Anemia: Acute blood loss anemia: s/p 3 units of prbc. h/h stable. He is asymptomatic. Will monitor CBC, if hmg falls below 7, will transfuse. : BPH. On Flomax fen full liquid, advance per gi monitor electrolytes prophy SCDs. ambulation dispositon: likely d/c monday to rehab if continues to improve. Visit type - Emergency Visit Emergency Visit: Yes ED Registration Date: 11/19/18 Care time: The patient presented to the Emergency Department on the above date and was hospitalized for further evaluation of their emergent condition. - New Patient This patient is new to me today: No - Critical Care Critical Care patient: No - Discharge Referral Referred to [facility] Med P.C.: No
--- NOTE | 2018-12-01 13:46 | PN.GI ---
GI Progress Note Subjective: Patient having liquid BM's per nurse No abdominal pain States feeling better in general Receiving oxycodone for pain - Objective Vital Signs: Vital Signs Temperature 97.4 F L 12/01/18 09:46 Pulse Rate 76 12/01/18 09:46 Respiratory Rate 18 12/01/18 09:46 Blood Pressure 138/78 12/01/18 09:46 O2 Sat by Pulse Oximetry (%) 96 11/30/18 09:00 Constitutional: Calm Eyes: No: Sclera Icterus Cardiovascular: Yes: Regular Rate and Rhythm Respiratory: Yes: CTA Bilaterally Gastrointestinal Inspection: Yes: Distention. No: Scars ...Auscultate: Yes: Normoactive Bowel Sounds ...Palpate: Yes: Soft (softer than prior exams) ...Percussion: Yes: Tympanitic Neurological: Yes: Alert Labs: CBC, BMP 12/01/18 08:45 12/01/18 08:45 INR, PTT INR 1.07 (0.83-1.09) 11/20/18 05:30 Problem List - Problems (1) Pseudoobstruction of colon Assessment/Plan: clinically improved. Some bowel distention noted on AXR yesterday, improved from previous Redose relistor tonight Encourage ambulation FUA in AM Code(s): K59.8 - OTHER SPECIFIED FUNCTIONAL INTESTINAL DISORDERS
[2018-12-01] MEDS: oxyCODONE HCL 5 MG TABLET PO PRN (19:04)
[2018-12-01] MEDS ORDERED: Methylnaltrexone Bromide 12 MG/0.6 ML KIT SQ ONE (20:00)
[2018-12-01] MEDS: SENNOSIDES 8.6MG TABLET (FP) PO SCH (21:49)
[2018-12-01] MEDS: ATORVASTATIN CA 10 MG TABLET (FP) PO SCH (21:49)
[2018-12-02] MEDS: ACETAMINOPHEN 325 MG TABLET (FP) PO SCH ×3 (06:34→18:09)
[2018-12-02] MEDS: TAMSULOSIN HCL 0.4 MG CAP PO SCH (08:50)
--- NOTE | 2018-12-02 09:34 | PN.GI ---
GI Progress Note Subjective: Was helped up and walked to by nurse. Had large loose BM this morning and was able to urinate Denies abdominal pain - Objective Vital Signs: Vital Signs Temperature 98.3 F 12/02/18 06:00 Pulse Rate 79 12/02/18 06:00 Respiratory Rate 20 12/02/18 06:00 Blood Pressure 149/83 12/02/18 06:00 O2 Sat by Pulse Oximetry (%) 96 12/01/18 21:00 Constitutional: Calm Cardiovascular: Yes: Regular Rate and Rhythm Respiratory: Yes: CTA Bilaterally Gastrointestinal Inspection: Yes: Distention ...Auscultate: Yes: Hyperactive Bowel Sounds ...Palpate: Yes: Soft ...Percussion: Yes: Tympanitic (Improved from previous exam) Edema: No (No LE edema) Neurological: Yes: Alert Labs: CBC, BMP 12/01/18 08:45 12/01/18 08:45 INR, PTT INR 1.07 (0.83-1.09) 11/20/18 05:30 Problem List - Problems (1) Pseudoobstruction of colon Assessment/Plan: Clinically improved Encourage OOB --> Chair, Ambulation as tolerated For FUA today Code(s): K59.8 - OTHER SPECIFIED FUNCTIONAL INTESTINAL DISORDERS
[2018-12-02] MEDS: SULFAMETHOXAZOLE/TRIMETHOPRIM 800MG/160MG D.S. TABLET PO SCH (10:10)
[2018-12-02 10:32] LABS: ALBUMIN 2.6 g/dl (3.4-5.0); ALK PHOS 73 U/L (45-117); ANION GAP 9 MMOL/L (8-16); BILIRUBIN,TOTAL 0.5 mg/dL (0.2-1); BLOOD UREA NITROGEN 5 mg/dL (7-18); CALCIUM 7.8 mg/dL (8.5-10.1); CHLORIDE 101 mmol/L (98-107); CO2 24 mmol/L (21-32); CREATININE 0.6 mg/dL (0.55-1.3); GLUCOSE,RANDOM 140 mg/dL (74-106); SGOT/AST 21 U/L (15-37); SGPT/ALT 19 U/L (13-61); SODIUM 133 mmol/L (136-145); TOT PROT 5.9 g/dl (6.4-8.2)
[2018-12-02 10:48] LABS: BASO % 0.9 % (0-2.0); HEMATOCRIT 28.4 % (35.4-49); HEMOGLOBIN 9.3 GM/dL (11.7-16.9); LYMPH % 9.5 % (8-40); MCH 27.9 pg (25.7-33.7); MCHC 32.9 g/dl (32.0-35.9); MEAN CELL VOLUME 84.8 fl (80-96); MEAN PLT VOLUME 7.5 fl (7.5-11.1); MONO % 5.9 % (3.8-10.2); NEUT % 80.7 % (42.8-82.8); PLATELET COUNT 549 K/MM3 (134-434); RBC 3.35 M/mm3 (4.00-5.60); RDW 15.7 % (11.9-15.9); WHITE BLOOD COUNT 11.2 K/mm3 (4.0-10.0)
[2018-12-02] MEDS: oxyCODONE HCL 5 MG TABLET PO PRN (12:36)
[2018-12-02 13:02] LABS: ANISOCYTOSIS 0; HELMET CELLS 0; HOWELL-JOLLY BODIES 0; MACROCYTOSIS 0; OVALOCYTE 0; PLATELET ESTIMATE INCREASED; ROULEAU 0; SICKELED CELLS 0; TARGET CELLS 0; TEAR DROP CELLS 0; TOXIC GRANULATION 0
--- NOTE | 2018-12-02 14:13 | PN ---
Physical Exam: SUBJECTIVE: Patient seen and examined at the bedside. Had a large BM today, some urinary retention overnight after coles removed and had to be straight cath, but now voided on his own. OBJECTIVE: abdomen soft tolerating diet + bowel sound, +flatus, no vomiting or nausea advance diet per GI Vital Signs Period Temp Pulse Resp BP Sys/Conde Pulse Ox Last 24 Hr 97.5 F-98.9 F 79-91 18-20 99-149/59-83 96 GENERAL: The patient is awake, alert, and fully oriented, in no acute distress. HEAD: Normal with no signs of trauma. EYES: PERRL, extraocular movements intact, sclera anicteric, conjunctiva clear. No ptosis. ENT: Ears normal, nares patent, oropharynx clear without exudates, moist mucous membranes. NECK: Trachea midline, full range of motion, supple. LUNGS: Breath sounds equal, clear to auscultation bilaterally HEART: Regular rate and rhythm ABDOMEN: abdomen distended, soft, non tender, +bowel sounds. no bm today. EXTREMITIES: 2+ pulses, warm, well-perfused, no edema. NEUROLOGICAL: Normal speech, gait not observed. PSYCH: Normal mood, normal affect. SKIN: Warm, dry, normal turgor, no rashes or lesions noted Laboratory Results - last 24 hr 12/02/18 12/02/18 09:30 09:30 WBC 11.2 H RBC 3.35 L Hgb 9.3 L Hct 28.4 L MCV 84.8 MCH 27.9 MCHC 32.9 RDW 15.7 Plt Count 549 H D MPV 7.5 Absolute Neuts (auto) 9.1 H Neutrophils % 80.7 Neutrophils % (Manual) 84.3 H Band Neutrophils % 0.0 Lymphocytes % 9.5 Lymphocytes % (Manual) 7.8 L Monocytes % 5.9 Monocytes % (Manual) 6 D Eosinophils % 3.0 Eosinophils % (Manual) 1.0 Basophils % 0.9 Basophils % (Manual) 1.0 Myelocytes % (Man) 0 D Promyelocytes % (Man) 0 Blast Cells % (Manual) 0 Nucleated RBC % 0 Metamyelocytes 0 Hypochromia 0 Toxic Granulation 0 Dohle Bodies 0 Platelet Estimate Increased Polychromasia 0 Poikilocytosis 0 Basophilic Stippling 0 Anisocytosis 0 Microcytosis 0 Macrocytosis 0 Spherocytes 0 Sickle Cells 0 Target Cells 0 Tear Drop Cells 0 Ovalocytes 0 Stomatocytes 0 Helmet Cells 0 [place] Bodies 0 [place] Rings 0 Freeman Cells 0 Acanthocytes (Spur) 0 Rouleaux 0 Fragmented RBCs 0 Schistocytes 0 Sodium 133 L Potassium 4.0 Chloride 101 Carbon Dioxide 24 Anion Gap 9 BUN 5 L Creatinine 0.6 Creat Clearance w eGFR 133.59 Random Glucose 140 H Calcium 7.8 L Total Bilirubin 0.5 AST 21 ALT 19 Alkaline Phosphatase 73 Total Protein 5.9 L Albumin 2.6 L Active Medications Generic Name Dose Route Start Last Admin Trade Name Freq PRN Reason Stop Dose Admin Acetaminophen 325 mg 11/24/18 13:30 12/02/18 12:37 Tylenol - PO 325 mg Q6HPO [facility]ARRY Administration Atorvastatin Calcium 10 mg 11/22/18 22:00 12/01/18 21:49 Lipitor - PO 10 mg HS [facility]ARRY Administration Ondansetron HCl 4 mg 11/22/18 17:36 Zofran Injection IVPUSH Q6H PRN NAUSEA AND/OR VOMITING Oxycodone HCl 5 mg 12/01/18 16:53 12/02/18 12:36 Roxicodone - PO 5 mg Q6H PRN Administration PAIN LEVEL 7 - 10 Senna 2 tab 12/01/18 22:00 12/01/18 21:49 Senna - PO 2 tab HS HARRY Administration Tamsulosin HCl 0.4 mg 11/23/18 08:30 12/02/18 08:50 Flomax - PO 0.4 mg DAILY@0830 HARRY Administration Trimethoprim/Sulfamethoxazole 1 each 11/23/18 10:00 12/02/18 10:10 Bactrim Ds - PO 1 each DAILY [facility]ARRY Administration ASSESSMENT/PLAN: Patient is a 68 year old male s/p lumbar stenosis with radiculopathy and claudication-laminectomies; facetectomies/osteotomies; luu-Villarreal osteotomies T12-L1, L1-L2, L3-L4; posterior instrumentation T11-S1; posterolateral arthrodesi T11-S1; bone autograft; bone allograft; bone marrow aspiration; stem cell autograft; intra-operative neural monitoring; intra- operative biplanar fluoroscopy; durotomy repair; complex wound closure (30cm) on 11/19/18. Developed abdominal distention post surgery. His other past medical history includes HTN, hyperipidemia, BPH, left upper arm weakness, Right shoulder RTC, colonscopy 5 years ago on routine basis/no masses found Imaging: abdominal xray 11/28/18: distended colon, no signs of free air. no signs of gross colonic stool retention. ct scan 11/29/2018: improved colonic distention since 11/26/18, no evidence of colonic obstruction. Surgery: s/p T11-S1 posterior fusion Care per surgery team pain management, incentive spirometer, bowel regimen encourage ambulation with back brace. d/c to rehab once cleared by gi. GI: Constipation/Colonic pseudo-obstruction s/p surgery. resolving abdomen soft, less distended, +bowel sounds, no nausea or vomiting. passing gas and tolerating diet. having BMs. tolerating full liquid diet. ID: Leukocytosis. WBC 12->16.4>15>9.9>11.2. afebrile. antibiotics stopped by ID as blood cultures are negative. Card: Hypertension: controlled Hyperlipidemia: on lipitor 10mg daily Anemia: Acute blood loss anemia: s/p 3 units of prbc. h/h stable. He is asymptomatic. Will monitor CBC, if hmg falls below 7, will transfuse. : BPH. On Flomax fen full liquid, advance per gi monitor electrolytes prophy SCDs. ambulation dispositon: likely d/c monday to rehab if continues to improve. Visit type - Emergency Visit Emergency Visit: Yes ED Registration Date: 11/19/18 Care time: The patient presented to the Emergency Department on the above date and was hospitalized for further evaluation of their emergent condition. - New Patient This patient is new to me today: No - Critical Care Critical Care patient: No - Discharge Referral Referred to [facility] Med P.C.: No
[2018-12-02] MEDS: SENNOSIDES 8.6MG TABLET (FP) PO SCH (22:09)
[2018-12-02] MEDS: ATORVASTATIN CA 10 MG TABLET (FP) PO SCH (22:09)
[2018-12-03] MEDS: ACETAMINOPHEN 325 MG TABLET (FP) PO SCH ×4 (00:12→18:08)
[2018-12-03] MEDS: oxyCODONE HCL 5 MG TABLET PO PRN ×3 (06:24→21:45)
[2018-12-03 08:04] LABS: ALBUMIN 2.3 g/dl (3.4-5.0); ALK PHOS 70 U/L (45-117); ANION GAP 7 MMOL/L (8-16); BILIRUBIN,TOTAL 0.4 mg/dL (0.2-1); BLOOD UREA NITROGEN 4 mg/dL (7-18); CHLORIDE 101 mmol/L (98-107); CO2 24 mmol/L (21-32); CREATININE 0.5 mg/dL (0.55-1.3); GLUCOSE,RANDOM 104 mg/dL (74-106); SGOT/AST 24 U/L (15-37); SGPT/ALT 21 U/L (13-61); SODIUM 131 mmol/L (136-145); TOT PROT 5.5 g/dl (6.4-8.2)
[2018-12-03 09:20] LABS: BASO % 0.8 % (0-2.0); EOS % 3.3 % (0-4.5); HEMATOCRIT 26.5 % (35.4-49); HEMOGLOBIN 8.8 GM/dL (11.7-16.9); MCH 28.1 pg (25.7-33.7); MCHC 33.2 g/dl (32.0-35.9); MEAN CELL VOLUME 84.7 fl (80-96); MEAN PLT VOLUME 7.5 fl (7.5-11.1); MONO % 10.8 % (3.8-10.2); NEUT % 71.1 % (42.8-82.8); PLATELET COUNT 516 K/MM3 (134-434); RBC 3.12 M/mm3 (4.00-5.60); RDW 15.7 % (11.9-15.9); WHITE BLOOD COUNT 8.1 K/mm3 (4.0-10.0)
[2018-12-03] MEDS ORDERED: PT OWN MED DRAWER 7, Y5N ONE ×3 (10:16→17:28)
[2018-12-03 10:56] LABS: ANISOCYTOSIS 0; HELMET CELLS 0; HOWELL-JOLLY BODIES 0; MACROCYTOSIS 0; OVALOCYTE 0; PLATELET ESTIMATE INCREASED; ROULEAU 0; SICKELED CELLS 0; TARGET CELLS 0; TEAR DROP CELLS 0; TOXIC GRANULATION 0
--- NOTE | 2018-12-03 10:59 | PN ---
Physical Exam: SUBJECTIVE: Patient seen and examined at the bedside. denies any abdominal pain, denies chest pain. feels well, ate breakfast OBJECTIVE: abdomen slightly more distended than yesterday, will order abd xray hyponatremia @ 131 Vital Signs Period Temp Pulse Resp BP Sys/Conde Pulse Ox Last 24 Hr 97.7 F-98.2 F 80-83 20-20 108-156/57-90 98 GENERAL: The patient is awake, alert, and fully oriented, in no acute distress. HEAD: Normal with no signs of trauma. EYES: PERRL, extraocular movements intact, sclera anicteric, conjunctiva clear. No ptosis. ENT: Ears normal, nares patent, oropharynx clear without exudates, moist mucous membranes. NECK: Trachea midline, full range of motion, supple. LUNGS: Breath sounds equal, clear to auscultation bilaterally HEART: Regular rate and rhythm ABDOMEN: abdomen distended, soft, non tender, +bowel sounds. had loose stool this a.m. EXTREMITIES: 2+ pulses, warm, well-perfused, no edema. NEUROLOGICAL: Normal speech, gait not observed. PSYCH: Normal mood, normal affect. SKIN: Warm, dry, normal turgor, no rashes or lesions noted Laboratory Results - last 24 hr 12/02/18 12/03/18 12/03/18 09:30 06:45 06:45 WBC 8.1 RBC 3.12 L Hgb 8.8 L Hct 26.5 L MCV 84.7 MCH 28.1 MCHC 33.2 RDW 15.7 Plt Count 516 H MPV 7.5 Absolute Neuts (auto) 5.7 Neutrophils % 71.1 Neutrophils % (Manual) 84.3 H Band Neutrophils % 0.0 Lymphocytes % 14.0 D Lymphocytes % (Manual) 7.8 L Monocytes % 10.8 H D Monocytes % (Manual) 6 D Eosinophils % 3.3 Eosinophils % (Manual) 1.0 Basophils % 0.8 Basophils % (Manual) 1.0 Myelocytes % (Man) 0 D Promyelocytes % (Man) 0 Blast Cells % (Manual) 0 Nucleated RBC % 0 Metamyelocytes 0 Hypochromia 0 Toxic Granulation 0 Dohle Bodies 0 Platelet Estimate Increased Polychromasia 0 Poikilocytosis 0 Basophilic Stippling 0 Anisocytosis 0 Microcytosis 0 Macrocytosis 0 Spherocytes 0 Sickle Cells 0 Target Cells 0 Tear Drop Cells 0 Ovalocytes 0 Stomatocytes 0 Helmet Cells 0 [place] Bodies 0 [place] Rings 0 Fan Cells 0 Acanthocytes (Spur) 0 Rouleaux 0 Fragmented RBCs 0 Schistocytes 0 Sodium 131 L Potassium 4.0 Chloride 101 Carbon Dioxide 24 Anion Gap 7 L BUN 4 L Creatinine 0.5 L Creat Clearance w eGFR 164.87 Random Glucose 104 Calcium 8.0 L Total Bilirubin 0.4 AST 24 ALT 21 Alkaline Phosphatase 70 Total Protein 5.5 L Albumin 2.3 L Active Medications Generic Name Dose Route Start Last Admin Trade Name Freq PRN Reason Stop Dose Admin Acetaminophen 325 mg 11/24/18 13:30 12/03/18 06:24 Tylenol - PO 325 mg Q6HPO HARRY Administration Atorvastatin Calcium 10 mg 11/22/18 22:00 12/02/18 22:09 Lipitor - PO 10 mg HS HARRY Administration Ondansetron HCl 4 mg 11/22/18 17:36 Zofran Injection IVPUSH Q6H PRN NAUSEA AND/OR VOMITING Oxycodone HCl 5 mg 12/01/18 16:53 12/03/18 06:24 Roxicodone - PO 5 mg Q6H PRN Administration PAIN LEVEL 7 - 10 Polyethylene Glycol 17 gm 12/03/18 10:00 Miralax (For Daily Use) - PO DAILY HARRY Senna 2 tab 12/01/18 22:00 12/02/18 22:09 Senna - PO 2 tab HS HARRY Administration Tamsulosin HCl 0.4 mg 11/23/18 08:30 12/02/18 08:50 Flomax - PO 0.4 mg DAILY@0830 HARRY Administration Trimethoprim/Sulfamethoxazole 1 each 11/23/18 10:00 12/02/18 10:10 Bactrim Ds - PO 1 each DAILY HARRY Administration ASSESSMENT/PLAN: Patient is a 68 year old male s/p lumbar stenosis with radiculopathy and claudication-laminectomies; facetectomies/osteotomies; luu-Villarreal osteotomies T12-L1, L1-L2, L3-L4; posterior instrumentation T11-S1; posterolateral arthrodesi T11-S1; bone autograft; bone allograft; bone marrow aspiration; stem cell autograft; intra-operative neural monitoring; intra- operative biplanar fluoroscopy; durotomy repair; complex wound closure (30cm) on 11/19/18. Developed abdominal distention post surgery. His other past medical history includes HTN, hyperipidemia, BPH, left upper arm weakness, Right shoulder RTC, colonscopy 5 years ago on routine basis/no masses found Imaging: abdominal xray 11/28/18: distended colon, no signs of free air. no signs of gross colonic stool retention. ct scan 11/29/2018: improved colonic distention since 11/26/18, no evidence of colonic obstruction. abdominal xray 12/03/18: pending GI: Constipation/Colonic pseudo-obstruction s/p surgery. resolving abdomen soft, slightly more distended today, +bowel sounds, no nausea or vomiting. passing gas and tolerating diet. having BMs. had regular diet his morning, ate very little. repeat abdminal flat and upright. Surgery: s/p T11-S1 posterior fusion Care per surgery team pain management, incentive spirometer, bowel regimen encourage ambulation with back brace. d/c to rehab once cleared by gi. ID: Leukocytosis. resolved. antibiotics stopped by ID as blood cultures are negative. Card: Hypertension: controlled Hyperlipidemia: on lipitor 10mg daily Anemia: Acute blood loss anemia: s/p 3 units of prbc. h/h stable. He is asymptomatic. Will monitor CBC, if hmg falls below 7, will transfuse. : BPH. On Flomax fen regular monitor electrolytes prophy SCDs. ambulation dispositon: awaiting for rehab. Visit type - Emergency Visit Emergency Visit: Yes ED Registration Date: 11/19/18 Care time: The patient presented to the Emergency Department on the above date and was hospitalized for further evaluation of their emergent condition. - New Patient This patient is new to me today: No - Critical Care Critical Care patient: No - Discharge Referral Referred to [facility] Med P.C.: No
[2018-12-03 11:02] LABS: MAGNESIUM 1.8 mg/dL (1.8-2.4)
[2018-12-03] MEDS: TAMSULOSIN HCL 0.4 MG CAP PO SCH (11:15)
[2018-12-03] MEDS: SULFAMETHOXAZOLE/TRIMETHOPRIM 800MG/160MG D.S. TABLET PO SCH (11:15)
[2018-12-03] MEDS: POLYETHYLENE GLYCOL 3350 119 GM BTL PO SCH (11:15)
--- NOTE | 2018-12-03 12:08 | PN ---
Progress Note, Physician History of Present Illness: Abdominal distension improving, tolerating meals, passing stools. - Current Medication List Current Medications: Active Medications Acetaminophen (Tylenol -) 325 mg PO Q6HPO [facility] Last Admin: 12/03/18 06:24 Dose: 325 mg Atorvastatin Calcium (Lipitor -) 10 mg PO HS [facility] Last Admin: 12/02/18 22:09 Dose: 10 mg Ondansetron HCl (Zofran Injection) 4 mg IVPUSH Q6H PRN PRN Reason: NAUSEA AND/OR VOMITING Oxycodone HCl (Roxicodone -) 5 mg PO Q6H PRN PRN Reason: PAIN LEVEL 7 - 10 Last Admin: 12/03/18 06:24 Dose: 5 mg Polyethylene Glycol (Miralax (For Daily Use) -) 17 gm PO DAILY [facility] Last Admin: 12/03/18 11:15 Dose: 17 gm Senna (Senna -) 2 tab PO [facility] Last Admin: 12/02/18 22:09 Dose: 2 tab Tamsulosin HCl (Flomax -) 0.4 mg PO DAILY@0830 [facility] Last Admin: 12/03/18 11:15 Dose: 0.4 mg Trimethoprim/Sulfamethoxazole (Bactrim Ds -) 1 each PO DAILY [facility] Last Admin: 12/03/18 11:15 Dose: 1 each - Objective Vital Signs: Vital Signs Temperature 98.2 F 12/03/18 07:48 Pulse Rate 81 12/03/18 07:48 Respiratory Rate 20 12/03/18 07:48 Blood Pressure 156/90 12/03/18 07:48 O2 Sat by Pulse Oximetry (%) 98 12/02/18 20:52 Constitutional: Yes: No Distress, Calm Neck: Yes: Supple Cardiovascular: Yes: Regular Rate and Rhythm Respiratory: Yes: Regular, Diminished Gastrointestinal: Yes: Soft, Distention, Hypoactive Bowel Sounds Edema: No Labs: CBC, BMP 12/03/18 06:45 12/03/18 06:45 INR, PTT INR 1.07 (0.83-1.09) 11/20/18 05:30 Problem List - Problems (1) Pseudoobstruction of colon Code(s): K59.8 - OTHER SPECIFIED FUNCTIONAL INTESTINAL DISORDERS Assessment/Plan Problem List - Problems (1) HTN (hypertension) Code(s): I10 - ESSENTIAL (PRIMARY) HYPERTENSION Qualifiers: Hypertension type: essential hypertension Qualified Code(s): I10 - Essential (primary) hypertension (2) Hyperlipidemia Code(s): E78.5 - HYPERLIPIDEMIA, UNSPECIFIED Qualifiers: Hyperlipidemia type: pure hypercholesterolemia Qualified Code(s): E78.00 - Pure hypercholesterolemia, unspecified; E78.0 - Pure hypercholesterolemia (4) S/P spinal surgery Code(s): Z98.890 - OTHER SPECIFIED POSTPROCEDURAL STATES 11/21/2018 Normal LV size and fxn, poor acoustic windows preclude valve eval 1. Lumbar Stenosis with radiculopathy and claudication 2. s/p T12-S1 Laminectomies/Posterior Instrumentation/Arthrodesis/Durotomy Repair 3. Acute Blood Loss Anemia 4. Hypovolemic Shock 6. Lactic Acidosis 7. +Troponins likely Demand Ischemia 8. s/p Acute Respiratory Failure 9. Hypercholesterolemia 10. Colon pseudoobstruction resolving 11. Resolving leukocytosis ruled out infectious etiology P: 1. Monitor H/H and transfuse as needed 2. Minimize opiate use with bowel regimen and Relistor 3. Ambulate, PT as tolerated 4. DVT prophylaxis 5. Observe off empiric abx course per ID
--- NOTE | 2018-12-03 12:14 | PN ---
Progress Note (short form) - Note Progress Note: Patient seen and examined Labs reviewed Patient denies abdominal pain. he thinks abdominal distention is improving. + flatus and having bm Advanced to a regular diet 12/03/18 07:48 Temperature 98.2 F Pulse Rate 81 Respiratory 20 Rate Blood Pressure 156/90 O2 Sat by Pulse Oximetry (%) NAD Abd soft but distended/tympanic, nontender CBC, BMP 12/03/18 06:45 12/03/18 06:45 Impression - improving pseudoobstruction - continue diet - K>4 Mg >2 - encourage ambulation - can give PO bowel regimen (ex miralax 17g daily) until bm regularize
--- NOTE | 2018-12-03 16:33 | DS ---
Physical Exam: SUBJECTIVE: Patient seen and examined at the bedside. feels well, in no distress. tolerating diet. ate lunch without difficulty. OBJECTIVE: discharge to rehab Vital Signs Period Temp Pulse Resp BP Sys/Conde Pulse Ox Last 24 Hr 97.7 F-98.4 F 81-100 19-20 95-156/57-90 98 PHYSICAL EXAM GENERAL: The patient is awake, alert, and fully oriented, in no acute distress. HEAD: Normal with no signs of trauma. EYES: PERRL, extraocular movements intact, sclera anicteric, conjunctiva clear. No ptosis. ENT: Ears normal, nares patent, oropharynx clear without exudates, moist mucous membranes. NECK: Trachea midline, full range of motion, supple. LUNGS: Breath sounds equal, clear to auscultation bilaterally HEART: Regular rate and rhythm ABDOMEN: abdomen soft, mildly distended, soft, non tender, +bowel sounds. had loose stool this a.m. EXTREMITIES: 2+ pulses, warm, well-perfused, no edema. NEUROLOGICAL: Normal speech, gait not observed. PSYCH: Normal mood, normal affect. SKIN: Warm, dry, normal turgor, no rashes or lesions noted LABS Laboratory Results - last 24 hr 12/03/18 12/03/18 06:45 06:45 WBC 8.1 RBC 3.12 L Hgb 8.8 L Hct 26.5 L MCV 84.7 MCH 28.1 MCHC 33.2 RDW 15.7 Plt Count 516 H MPV 7.5 Absolute Neuts (auto) 5.7 Neutrophils % 71.1 Neutrophils % (Manual) 70.7 Band Neutrophils % 0.0 Lymphocytes % 14.0 D Lymphocytes % (Manual) 14.1 D Monocytes % 10.8 H D Monocytes % (Manual) 8 Eosinophils % 3.3 Eosinophils % (Manual) 5.1 H D Basophils % 0.8 Basophils % (Manual) 0.0 Myelocytes % (Man) 0 Promyelocytes % (Man) 0 Blast Cells % (Manual) 0 Nucleated RBC % 0 Metamyelocytes 2 D Hypochromia 0 Toxic Granulation 0 Dohle Bodies 0 Platelet Estimate Increased Polychromasia 0 Poikilocytosis 0 Basophilic Stippling 0 Anisocytosis 0 Microcytosis 0 Macrocytosis 0 Spherocytes 0 Sickle Cells 0 Target Cells 0 Tear Drop Cells 0 Ovalocytes 0 Stomatocytes 0 Helmet Cells 0 Zelaya-[place] Bodies 0 [place] Rings 0 Fan Cells 0 Acanthocytes (Spur) 0 Rouleaux 0 Fragmented RBCs 0 Schistocytes 0 Sodium 131 L Potassium 4.0 Chloride 101 Carbon Dioxide 24 Anion Gap 7 L BUN 4 L Creatinine 0.5 L Creat Clearance w eGFR 164.87 Random Glucose 104 Calcium 8.0 L Magnesium 1.8 Total Bilirubin 0.4 AST 24 ALT 21 Alkaline Phosphatase 70 Total Protein 5.5 L Albumin 2.3 L HOSPITAL COURSE: Date of Admission:11/19/18 Date of Discharge: 12/03/18 Patient is a 68 year old male s/p lumbar stenosis with radiculopathy and claudication-laminectomies; facetectomies/osteotomies; luu-Villarreal osteotomies T12-L1, L1-L2, L3-L4; posterior instrumentation T11-S1; posterolateral arthrodesi T11-S1; bone autograft; bone allograft; bone marrow aspiration; stem cell autograft; intra-operative neural monitoring; intra- operative biplanar fluoroscopy; durotomy repair; complex wound closure (30cm) on 11/19/18. Developed abdominal distention post surgery. His other past medical history includes HTN, hyperipidemia, BPH, left upper arm weakness, Right shoulder RTC, colonscopy 5 years ago on routine basis/no masses found Imaging: abdominal xray 11/28/18: distended colon, no signs of free air. no signs of gross colonic stool retention. ct scan 11/29/2018: improved colonic distention since 11/26/18, no evidence of colonic obstruction. abdominal xray 12/03/18: unchanged, no obstruction GI: Constipation/Colonic pseudo-obstruction s/p surgery. resolving Abdomen improved, tolerating lunch. abdominal xray unchanged. +bowel sounds, no nausea or vomiting. passing gas and tolerating diet. having BMs. follow up GI outpatient. Please Miralax daily until has a daily BM Surgery: s/p T11-S1 posterior fusion. Care per surgery team pain management, incentive spirometer, bowel regimen encourage ambulation with back brace. discharge to rehab today ID: Leukocytosis. resolved. blood cultures negative. no signs of infection. remains afebrile. Card: Hypertension: controlled Hyperlipidemia: on lipitor daily Anemia: Acute blood loss anemia: s/p 3 units of prbc. hmg/hct stable. : BPH. On Flomax Discharge to rehab. full code. Minutes to complete discharge: 60 Discharge Summary Reason For Visit: SPINAL STENOSIS, LUMBAR REGION Current Active Problems Abdominal distension (Acute) Acute blood loss anemia (Acute) BPH (benign prostatic hyperplasia) (Acute) DVT prophylaxis (Acute) Elevated troponin I level (Acute) HTN (hypertension) (Acute) Hyperlipidemia (Acute) Hypotension after procedure (Acute) Intubation of airway performed without difficulty (Acute) Pseudoobstruction of colon (Acute) S/P spinal surgery (Acute) Condition: Improved - Instructions Diet, Activity, Other Instructions: Dr. Parish Rao's Discharge Instructions Post Operative Instructions Physical activity Resume your normal everyday activity as tolerated no heavy lifting or exercise until seen by your surgeon. MOBILZE WITH BACK BRACE. Wound care Continue wound vac as per Dr. Rao. Keep surgical dressings dry. Diet There are no dietary restrictions. Eat healthy. Drink 6 to 8 glasses of liquid each day. This will assist in keeping your bowels are regular. Pain management You may take Tylenol or acetaminophen. Any pain prescription medication ordered should be taken as prescribed for moderate to severe pain. Call Dr. Rao for any of the following: Severe pain not relieved by medication Fever of 101 or higher Excessive bleeding or drainage on dressing Call the office for a post operative appointment in 7 - 10 days. DISCHARGE INSTRUCTIONS: Patient is a 68 year old male s/p lumbar stenosis with radiculopathy and claudication-laminectomies; facetectomies/osteotomies; luu-Villarreal osteotomies T12-L1, L1-L2, L3-L4; posterior instrumentation T11-S1; posterolateral arthrodesi T11-S1; bone autograft; bone allograft; bone marrow aspiration; stem cell autograft; intra-operative neural monitoring; intra- operative biplanar fluoroscopy; durotomy repair; complex wound closure (30cm) on 11/19/18. Developed abdominal distention post surgery. His other past medical history includes HTN, hyperipidemia, BPH, left upper arm weakness, Right shoulder RTC, colonscopy 5 years ago on routine basis/no masses found Patient developed constipation and a colonic psudo obstructon s/p surgery. He has been managed without surgical interventions and now stable for discharge. Here are our recommendations: Constipation/Colonic pseudo-obstruction s/p surgery. resolved abdomen soft, +bowel sounds, no nausea or vomiting. passing gas and tolerating diet. having BMs. Continue to administer Miralax, senna and colace to achieve daily bowel movements. Continue regular diet. follow up with GI by calling office and making an appointment for followup. Hypertension: controlled. continue to monitor. Hyperlipidemia: on lipitor Hyponatremia noted on todays' labs at 131. Repeat labs and monitor. Acute blood loss anemia: Has received 3 units of prbc. hmg/hct stable. BPH. On Flomax Thank you for allow us to care for you. Referrals: Niru Liu MD [Staff Physician] - Scar Tapia MD [Staff Physician] - Disposition: [facility] FACILITY - Home Medications Comprehensive Discharge Medication List: Ambulatory Orders Ergocalciferol (Vitamin D2) [Vitamin D2] 2,000 unit PO DAILY 11/15/18 Simvastatin 20 mg PO DAILY 11/15/18 Sulfamethoxazole/Trimethoprim [Sulfamethoxazole-Tmp Ds Tablet] 1 each PO DAILY 11/15/18 Tamsulosin HCl 0.4 mg PO DAILY 11/15/18 Polyethylene Glycol 3350 [Miralax 119 gm Btl -] 17 gm PO DAILY bottle 12/03/18 Sennosides [Senna -] 2 tab PO HS tablet 12/03/18 This patient is new to me today: No Emergency Visit: Yes ED Registration Date: 11/19/18 Care time: The patient presented to the Emergency Department on the above date and was hospitalized for further evaluation of their emergent condition. Critical Care patient: No - Discharge Referral Referred to [facility] Med P.C.: No
[2018-12-03] MEDS: ATORVASTATIN CA 10 MG TABLET (FP) PO SCH (21:40)
[2018-12-03] MEDS: SENNOSIDES 8.6MG TABLET (FP) PO SCH (21:47)
[2018-12-04 00:11] VITALS: PULSE 88
[2018-12-04] MEDS: ACETAMINOPHEN 325 MG TABLET (FP) PO SCH ×3 (00:17→12:20)
[2018-12-04 06:15] LABS: BASO % 0.7 % (0-2.0); EOS % 3.6 % (0-4.5); HEMATOCRIT 27.3 % (35.4-49); HEMOGLOBIN 9.1 GM/dL (11.7-16.9); LYMPH % 14.9 % (8-40); MCH 28.2 pg (25.7-33.7); MCHC 33.4 g/dl (32.0-35.9); MEAN CELL VOLUME 84.3 fl (80-96); MEAN PLT VOLUME 7.2 fl (7.5-11.1); MONO % 11.3 % (3.8-10.2); NEUT % 69.5 % (42.8-82.8); PLATELET COUNT 544 K/MM3 (134-434); RBC 3.23 M/mm3 (4.00-5.60)
[2018-12-04 06:41] LABS: ALBUMIN 2.5 g/dl (3.4-5.0); ALK PHOS 72 U/L (45-117); ANION GAP 8 MMOL/L (8-16); BILIRUBIN,TOTAL 0.8 mg/dL (0.2-1); BLOOD UREA NITROGEN 6 mg/dL (7-18); CALCIUM 7.5 mg/dL (8.5-10.1); CHLORIDE 103 mmol/L (98-107); CO2 25 mmol/L (21-32); CREATININE 0.6 mg/dL (0.55-1.3); GLUCOSE,RANDOM 100 mg/dL (74-106); MAGNESIUM 1.4 mg/dL (1.8-2.4); POTASSIUM 4.2 mmol/L (3.5-5.1); SGOT/AST 25 U/L (15-37); SGPT/ALT 23 U/L (13-61); SODIUM 137 mmol/L (136-145); TOT PROT 5.6 g/dl (6.4-8.2)
[2018-12-04] MEDS: TAMSULOSIN HCL 0.4 MG CAP PO SCH (09:27)
[2018-12-04] MEDS: SULFAMETHOXAZOLE/TRIMETHOPRIM 800MG/160MG D.S. TABLET PO SCH (09:27)
[2018-12-04] MEDS: POLYETHYLENE GLYCOL 3350 119 GM BTL PO SCH (09:28)
--- NOTE | 2018-12-04 10:55 | PN ---
Progress Note, Physician Chief Complaint: Events noted Not in distress History of Present Illness: Patient was seen and examined. Awake and alert. Chart was reviewed Denies chest pain, SOB or palpitations - Current Medication List Current Medications: Active Medications Acetaminophen (Tylenol -) 325 mg PO Q6HPO [facility] Last Admin: 12/04/18 05:22 Dose: 325 mg Atorvastatin Calcium (Lipitor -) 10 mg PO HS [facility] Last Admin: 12/03/18 21:40 Dose: 10 mg Ondansetron HCl (Zofran Injection) 4 mg IVPUSH Q6H PRN PRN Reason: NAUSEA AND/OR VOMITING Oxycodone HCl (Roxicodone -) 5 mg PO Q6H PRN PRN Reason: PAIN LEVEL 7 - 10 Last Admin: 12/03/18 21:45 Dose: 5 mg Polyethylene Glycol (Miralax (For Daily Use) -) 17 gm PO DAILY [facility] Last Admin: 12/04/18 09:28 Dose: 17 gm Senna (Senna -) 2 tab PO [facility] Last Admin: 12/03/18 21:47 Dose: Not Given Tamsulosin HCl (Flomax -) 0.4 mg PO DAILY@0830 [facility] Last Admin: 12/04/18 09:27 Dose: 0.4 mg Trimethoprim/Sulfamethoxazole (Bactrim Ds -) 1 each PO DAILY [facility] Last Admin: 12/04/18 09:27 Dose: 1 each - Objective Vital Signs: Vital Signs Temperature 99.4 F 12/04/18 06:00 Pulse Rate 88 12/04/18 06:00 Respiratory Rate 20 12/04/18 06:00 Blood Pressure 132/80 12/04/18 06:00 O2 Sat by Pulse Oximetry (%) 98 12/02/18 20:52 Eyes: Yes: PERRL HENT: Yes: Atraumatic Neck: Yes: Supple Cardiovascular: Yes: Regular Rate and Rhythm, S1, S2 Respiratory: Yes: CTA Bilaterally Gastrointestinal: Yes: Normal Bowel Sounds, Soft. No: Tenderness Edema: No Labs: CBC, BMP 12/04/18 05:10 12/04/18 05:10 Problem List - Problems (1) HTN (hypertension) Code(s): I10 - ESSENTIAL (PRIMARY) HYPERTENSION Qualifiers: Hypertension type: essential hypertension Qualified Code(s): I10 - Essential (primary) hypertension (2) Hyperlipidemia Code(s): E78.5 - HYPERLIPIDEMIA, UNSPECIFIED Qualifiers: Hyperlipidemia type: pure hypercholesterolemia Qualified Code(s): E78.00 - Pure hypercholesterolemia, unspecified; E78.0 - Pure hypercholesterolemia (3) Hypotension after procedure Code(s): I95.81 - POSTPROCEDURAL HYPOTENSION (4) S/P spinal surgery Code(s): Z98.890 - OTHER SPECIFIED POSTPROCEDURAL STATES Assessment/Plan 1. Lumbar Stenosis with radiculopathy and claudication s/p T12-S1 Laminectomies/ Posterior Instrumentation/Arthrodesis/Durotomy Repair 2. Acute Blood Loss Anemia 3. Hypovolemic Shock and lactic acidosis 4. Demand ischemia 5. Thrombocytopenia 6. History of HTN 7. Hypercholesterolemia 8. Post colon pseudoobstruction resolved PLAN: 1. Monitor Hgb/Hct and transfuse PRBC as needed 2. PT 3. Pain control and post op management 4. DVT prophylaxis As per present care Kaleb Stanley MD
[2018-12-04 11:11] VITALS: BP 122/72; TEMP 98.3
[2018-12-04 11:56] LABS: ANISOCYTOSIS 1+; MACROCYTOSIS 0; PLATELET ESTIMATE INCREASED; TARGET CELLS 1+
--- NOTE | 2018-12-04 12:58 | PN.GI ---
GI Progress Note Subjective: No abdominal pain Having BM's Ambulating more AXR: still witth some distended colon loops - Objective Vital Signs: Vital Signs Temperature 98.3 F 12/04/18 10:00 Pulse Rate 88 12/04/18 10:00 Respiratory Rate 18 12/04/18 10:00 Blood Pressure 122/72 12/04/18 10:00 O2 Sat by Pulse Oximetry (%) 98 12/04/18 09:00 Constitutional: Calm Eyes: No: Sclera Icterus Cardiovascular: Yes: Regular Rate and Rhythm Respiratory: Yes: CTA Bilaterally Gastrointestinal Inspection: Yes: Distention ...Auscultate: Yes: Normoactive Bowel Sounds ...Palpate: No: Tenderness ...Percussion: Yes: Tympanitic (upper abdomen) Edema: No (No LE edema) Neurological: Yes: Alert Labs: CBC, BMP 12/04/18 05:10 12/04/18 05:10 INR, PTT INR 1.07 (0.83-1.09) 11/20/18 05:30 - ....Imaging X-ray: Report Reviewed, Image Reviewed Problem List - Problems (1) Pseudoobstruction of colon Assessment/Plan: Clinically looks well. Having BM's and passing flatus Encourage ambulation Minimize opiate analgesia MiraLAX 17g daily and Senna 2 tans HS until bowel habits normalize, opiates discontinued and resolution of colonic ileus Code(s): K59.8 - OTHER SPECIFIED FUNCTIONAL INTESTINAL DISORDERS
[2018-12-04] MEDS: oxyCODONE HCL 5 MG TABLET PO PRN (14:20)
== END 2018-12-04 14:51 | DRG 453 ==
LOC: JSAMEDAYSX 11-19 06:07 → JICU 11-19 14:22 → J8W 11-22 17:28
PROVIDERS: ADMIT Orthopaedic Surgery Orthopaedic Surgery of the Spine; ATTEND Internal Medicine
PROC: 0RG6071 Fusion of Thoracic Vertebral Joint with Autologous Tissue Substitute, Posterior Approach, Posterior Column, Open Approach (ICD-10-PCS; 2018-11-19)
PROC: 00NX0ZZ Release Thoracic Spinal Cord, Open Approach (ICD-10-PCS; 2018-11-19)
PROC: 0RGA0AJ Fusion of Thoracolumbar Vertebral Joint with Interbody Fusion Device, Posterior Approach, Anterior Column, Open Approach (ICD-10-PCS; 2018-11-19)
PROC: 0RGA071 Fusion of Thoracolumbar Vertebral Joint with Autologous Tissue Substitute, Posterior Approach, Posterior Column, Open Approach (ICD-10-PCS; 2018-11-19)
PROC: 0SG10AJ Fusion of 2 or more Lumbar Vertebral Joints with Interbody Fusion Device, Posterior Approach, Anterior Column, Open Approach (ICD-10-PCS; 2018-11-19)
PROC: 0SG1071 Fusion of 2 or more Lumbar Vertebral Joints with Autologous Tissue Substitute, Posterior Approach, Posterior Column, Open Approach (ICD-10-PCS; 2018-11-19)
PROC: 00NY0ZZ Release Lumbar Spinal Cord, Open Approach (ICD-10-PCS; 2018-11-19)
PROC: 0SG30AJ Fusion of Lumbosacral Joint with Interbody Fusion Device, Posterior Approach, Anterior Column, Open Approach (ICD-10-PCS; 2018-11-19)
PROC: 0SG3071 Fusion of Lumbosacral Joint with Autologous Tissue Substitute, Posterior Approach, Posterior Column, Open Approach (ICD-10-PCS; 2018-11-19)
PROC: 00Q20ZZ Repair Dura Mater, Open Approach (ICD-10-PCS; 2018-11-19)
PROC: 0QB30ZZ Excision of Left Pelvic Bone, Open Approach (ICD-10-PCS; 2018-11-19)
PROC: 4A10X4G Monitoring of Central Nervous Electrical Activity, Intraoperative, External Approach (ICD-10-PCS; 2018-11-19)
PROC: 05HN33Z Insertion of Infusion Device into Left Internal Jugular Vein, Percutaneous Approach (ICD-10-PCS; 2018-11-19)
PROC: B544ZZA Ultrasonography of Left Jugular Veins, Guidance (ICD-10-PCS; 2018-11-19)
PROC: 5A1935Z Respiratory Ventilation, Less than 24 Consecutive Hours (ICD-10-PCS; 2018-11-19)
PROC: 0RG60AJ Fusion of Thoracic Vertebral Joint with Interbody Fusion Device, Posterior Approach, Anterior Column, Open Approach (ICD-10-PCS; principal; 2018-11-19 08:00)
DX: M40.299 Other kyphosis, site unspecified (principal); J96.00 Acute respiratory failure, unspecified whether with hypoxia or hypercapnia; G97.41 Accidental puncture or laceration of dura during a procedure; D62 Acute posthemorrhagic anemia; E87.2 Acidosis; I24.8 Other forms of acute ischemic heart disease; J98.11 Atelectasis; M48.062 Spinal stenosis, lumbar region with neurogenic claudication; M48.07 Spinal stenosis, lumbosacral region; M48.04 Spinal stenosis, thoracic region; I95.81 Postprocedural hypotension; M54.16 Radiculopathy, lumbar region; K59.8 Other specified functional intestinal disorders; D69.6 Thrombocytopenia, unspecified; N40.0 Benign prostatic hyperplasia without lower urinary tract symptoms; K59.00 Constipation, unspecified; R14.0 Abdominal distension (gaseous); Y83.8 Other surgical procedures as the cause of abnormal reaction of the patient, or of later complication, without mention of misadventure at the time of the procedure; E78.5 Hyperlipidemia, unspecified; E66.9 Obesity, unspecified; Z68.32 Body mass index [BMI] 32.0-32.9, adult
CPT/HCPCS: 36415; 36430; 36511; 36600; 71045-TC-FY; 74018-TC-FY; 74019-TC-FY; 74176-TC; 80048; 80053; 82550; 82553; 82803; 82962; 83605; 83735; 84100; 84484; 85025; 85027; 85610; 85730; 86850; 86891; 86900; 86901; 86922; 87040; 93005; 93010; 93306-TC; 94002; 94010; 94640; 94760; 97116-GP; 97161-GP; J0131; J1644; J7030; P9038; P9058; Q9967

== ENCOUNTER 2023-03-22 05:56 | Day surgery (SDC) | payer BC ==
[2023-03-13 13:54] VITALS: BMI 30.1
[2023-03-22] MEDS ORDERED: BUPIVACAINE HCL/PF 0.5% (5MG/ML) 10 ML VIAL ONE (07:19)
[2023-03-22] MEDS ORDERED: MIDAZOLAM HCL 2 MG/2 ML SINGLE DOSE VIAL ONE ×3 (07:19→09:42)
[2023-03-22] MEDS ORDERED: BUPIVACAINE HCL/PF 2.5 MG/ML - 30 ML VIAL IJ ONE (07:19)
[2023-03-22] MEDS ORDERED: FENTANYL CITRATE/PF 50 MCG/ML VIAL ONE ×2 (07:27→11:59)
[2023-03-22] MEDS ORDERED: SUCCINYLCHOLINE CHLORIDE 200 MG/10 ML SYRINGE ONE (07:31)
[2023-03-22] MEDS ORDERED: ONDANSETRON 4 MG/2 ML VIAL ONE (08:08)
[2023-03-22] MEDS ORDERED: ceFAZolin SODIUM 1 GM VIAL ONE (08:08)
[2023-03-22] MEDS ORDERED: VANCOMYCIN 1,000 MG VIAL (RESTRICTED TO ID ONLY) ONE (08:08)
[2023-03-22] MEDS ORDERED: SODIUM CHLORIDE 0.9% P/F 10 ML VIAL IJ ONE (08:08)
[2023-03-22] MEDS ORDERED: ePHEDrine SULFATE 50 MG/1 ML AMPULE ONE (08:21)
[2023-03-22] MEDS ORDERED: PHENYLEPHRINE HCL 10 MG/1 ML SINGLE DOSE VIAL ONE (08:46)
[2023-03-22] MEDS ORDERED: oxyCODONE HCL 5 MG TABLET PO PRN (08:53)
[2023-03-22] MEDS ORDERED: ONDANSETRON 4 MG/2 ML VIAL IVPUSH PRN ×2 (08:53→11:12)
[2023-03-22] MEDS ORDERED: MAG HYDROX/AL HYDROX/SIMETH 30 ML UNIT-DOSE CUP PO PRN (11:12)
[2023-03-22] MEDS ORDERED: MAGNESIUM HYDROX 2400MG/30ML ORAL SUSPENSION 30 ML CUP PO PRN (11:12)
[2023-03-22] MEDS ORDERED: LACTATED RINGERS SOLUTION 1,000 ML IV SCH (11:15)
[2023-03-22] MEDS: ACETAMINOPHEN 1000 MG/100 ML BAG IVPB ONE ×2 (11:25→20:29)
[2023-03-22] MEDS ORDERED: ACETAMINOPHEN INJECTION 100 ML IVPB ONE (11:27)
[2023-03-22] MEDS: oxyCODONE HCL 5 MG TABLET PO PRN ×2 (13:22→20:45)
[2023-03-22] MEDS: ACETAMINOPHEN 500 MG TABLET (FP) PO SCH ×3 (13:23→23:11)
[2023-03-22] MEDS: CEFAZOLIN SODIUM 2 GM in DEXTROSE 5%-WATER 100 ML IVPB SCH ×2 (16:12→21:32)
[2023-03-22] MEDS: CELECOXIB 100 MG CAPSULE PO SCH (21:28)
[2023-03-22] MEDS: ASPIRIN 81 MG CHEWABLE TABLETS PO SCH (21:28)
[2023-03-22] MEDS: ATORVASTATIN CA 10 MG TABLET (FP) PO SCH (21:28)
[2023-03-22] MEDS: SENNOSIDES/DOCUSATE COMBO (SENNA PLUS) TABLET (UD) PO SCH (21:28)
[2023-03-22] MEDS: LOSARTAN POTASSIUM 50 MG TABLET PO SCH (21:28)
[2023-03-23] MEDS: oxyCODONE HCL 5 MG TABLET PO PRN ×6 (02:01→21:35)
[2023-03-23] MEDS: CEFAZOLIN SODIUM 2 GM in DEXTROSE 5%-WATER 100 ML IVPB SCH (02:01)
[2023-03-23] MEDS: ACETAMINOPHEN 500 MG TABLET (FP) PO SCH ×3 (05:29→17:44)
[2023-03-23 08:09] LABS: HEMATOCRIT 29.1 % (35.4-49); HEMOGLOBIN 9.6 G/dL (11.7-16.9); MCH 29.2 pg (25.7-33.7); MEAN CELL VOLUME 88.5 fl (80-96); PLATELET COUNT 217.3 10^3/uL (134-434); RBC 3.29 10^6/uL (4.00-5.60); RDW 14.5 % (11.9-15.9); WHITE BLOOD COUNT 13.8 10^3/uL (4.0-10.8)
[2023-03-23 08:15] LABS: BLOOD UREA NITROGEN 34.8 mg/dl (7-18); CALCIUM 8.5 mg/dl (8.5-10.1); CREATININE 1.2 mg/dl (0.6-1.3); POTASSIUM 4.5 mmol/L (3.5-5.1)
[2023-03-23] MEDS: LOSARTAN POTASSIUM 50 MG TABLET PO SCH ×3 (09:10→21:53)
[2023-03-23] MEDS: SULFAMETHOXAZOLE/TRIMETHOPRIM 800MG/160MG D.S. TABLET PO SCH (09:10)
[2023-03-23] MEDS: PANTOPRAZOLE 40 MG TABLET PO SCH (09:10)
[2023-03-23] MEDS: SENNOSIDES/DOCUSATE COMBO (SENNA PLUS) TABLET (UD) PO SCH ×2 (09:10→21:31)
[2023-03-23] MEDS: ASPIRIN 81 MG CHEWABLE TABLETS PO SCH ×2 (09:10→21:32)
[2023-03-23] MEDS: CELECOXIB 100 MG CAPSULE PO SCH ×2 (09:10→21:32)
[2023-03-23] MEDS: ATORVASTATIN CA 10 MG TABLET (FP) PO SCH (21:32)
[2023-03-24] MEDS: ACETAMINOPHEN 500 MG TABLET (FP) PO SCH ×4 (01:10→17:05)
[2023-03-24 08:21] LABS: HEMATOCRIT 29.2 % (35.4-49); HEMOGLOBIN 9.5 G/dL (11.7-16.9); MCH 28.8 pg (25.7-33.7); MCHC 32.6 g/dl (32.0-35.9); MEAN CELL VOLUME 88.5 fl (80-96); MEAN PLT VOLUME 8.1 fl (7.5-11.1); PLATELET COUNT 204.9 10^3/uL (134-434); RDW 14.8 % (11.9-15.9); WHITE BLOOD COUNT 15.5 10^3/uL (4.0-10.8)
[2023-03-24] MEDS: SULFAMETHOXAZOLE/TRIMETHOPRIM 800MG/160MG D.S. TABLET PO SCH (10:16)
[2023-03-24] MEDS: PANTOPRAZOLE 40 MG TABLET PO SCH (10:16)
[2023-03-24] MEDS: CELECOXIB 100 MG CAPSULE PO SCH (10:16)
[2023-03-24] MEDS: LOSARTAN POTASSIUM 50 MG TABLET PO SCH (10:16)
[2023-03-24] MEDS: SENNOSIDES/DOCUSATE COMBO (SENNA PLUS) TABLET (UD) PO SCH (10:16)
[2023-03-24] MEDS: ASPIRIN 81 MG CHEWABLE TABLETS PO SCH (10:16)
[2023-03-24] MEDS ORDERED: SODIUM CHLORIDE 500 ML IV STA (10:49)
[2023-03-24 16:16] VITALS: BP 102/59; PULSE 78; RESP 20; TEMP 98
== END 2023-03-24 18:05 ==
LOC: FASUSAT 05:56 → FASU 05:56 → FM/S 12:51 → FASUSAT 03-24 18:05
PROVIDERS: ATTEND Orthopaedic Surgery Orthopaedic Surgery of the Spine
PROC: 0SR90JA Replacement of Right Hip Joint with Synthetic Substitute, Uncemented, Open Approach (ICD-10-PCS; principal; 2023-03-22 08:42)
DX: M16.11 Unilateral primary osteoarthritis, right hip (principal)
CPT/HCPCS: 27130; C1776; 36415; 73502-TC-RT-FY; 80048; 85027; 87635; 88305-TC; 88311-TC; 94760; 97010-GP; 97116-GP; 97162-GP; C1889